=== PATIENT | male | born 2000 ===

== ENCOUNTER 2022-07-30 12:44 | Emergency (ER) | payer OTHER, SELFPAY ==
[2022-07-30 12:58] VITALS: BP 161/121; PULSE 94; RESP 14; TEMP 37.3; O2SAT 98; BMI 25.8
--- NOTE | 2022-07-30 13:13 | ED.NURSE ---
Offered ice pack, Pt declines at this time.
--- NOTE | 2022-07-30 13:18 | CRLHL7_ITS ---
For Patients: As a result of the Cures Act, medical imaging exams and procedure reports are released immediately into your electronic medical record. You may view this report before your referring provider. If you have questions, please contact your health care provider. INDICATION: Dislocation playing rugby. TECHNIQUE: Two views of the right shoulder. COMPARISON: None. FINDINGS: Anterior right shoulder dislocation. No evidence of acute fracture. The visualized soft tissues are unremarkable. IMPRESSION: Anterior right shoulder dislocation. Dictated by Radha Gleason MD @ 07/30/2022 2:09:56 PM (Electronically Signed)
--- NOTE | 2022-07-30 13:20 | ED_ITS ---
HPI - General Adult General Chief complaint: Shoulder Injury/Pain Stated complaint: Dislocated right shoulder Time Seen by Provider: 07/30/22 13:09 Source: patient Mode of arrival: ambulatory Limitations: no limitations History of Present Illness HPI narrative: 22-year-old male coming in today complaining of shoulder pain. He was playing rugby when he was hit and fell. He felt immediate shoulder pain in believes that her shoulders dislocated. He cannot move it. He is in lot of pain. He denies hitting his head or other injury. He states that he has dislocated the left shoulder in the past, and that requir ed surgery because he tore part of the rotator cuff. Related Data Home Medications Medication Instructions Recorded Confirmed No Known Home Medications 07/30/22 07/30/22 Allergies Allergy/AdvReac Type Severity Reaction Status Date / Time No Known Drug Allergies Allergy Verified 07/30/22 13:01 Review of Systems Status of ROS: Reports: 6 or more systems reviewed and unremarkable except as noted in History and below PFSH [facility] Social History Smoking Status: Never smoker How often do you have a drink containing alcohol: 2-3 times a week AUDIT-C Alcohol total score: 3 Non-prescribed substance use: denies use Exam Narrative: Exam Narrative: Well-nourished well-developed patient clearly in pain. Alert and oriented. Answers questions appropriately. Patient speaks in full sentences without needing to catch their breath. HEENT: Normocephalic atraumatic. Pupils are equally round reactive to light. Extraocular muscles are intact. Conjunctivae are moist without any icterus noted. Moist mucous membranes. Posterior pharynx is normal. Neck is soft without any lymphadenopathy or thyromegaly. No masses are appreciated. No tenderness to palpation of the cervical spine. Good range of motion with flexion, extension, side way bending and rotation without pain. Cardiovascular: Heart is regular rate and rhythm S1 and S2 are present without any murmurs. Lungs: Clear to auscultation bilaterally no wheezes rhonchi or rales are appreciated. Patient takes deep breaths without any discomfort. Abdomen: Soft and nontender nondistended with normal bowel sounds. Extremities: Patient has an obvious abnormality of the right shoulder. Normal contour is not present. Appears to have a anteriorly protruding humeral head. He does have a good radial pulse on that side. Const: Vital Signs, click to edit/add: Vital Signs - 24 hr 07/30/22 12:58 Temperature 99.2 F Pulse Rate [Pulse Oximeter] 94 Respiratory Rate 14 Blood Pressure [Le ft Upper Arm] 161/121 H Pulse Oximetry 98 Course Course Hospital Course: IV was established and patient received 0.5 mg of IV Dilaudid which helped him be more comfortable. X-ray of the shoulder, read by me, did not show any fractures. Given patient's muscular build and after conversation with both him and his father, we decided to do moderate sedation with IV propofol. Risks and benefits were discussed including risk of intubation, -patient wished to proceed. IV sedation provided by . Please see her note for full details. We achieved great sedation, and with external rotation of the arm bent at the elbow to 90? the shoulder easily went back into place. Post reduction examination reveals normal contour of the shoulder. Normal radial pulse. No swelling of the extremity noted. Patient tolerated the procedure well. Post reduction x-rays, read by me, were unremarkable. Vital Signs Vital signs: Initial Vital Signs Temperature 99.2 F 07/30/22 12:58 Temperature Source Temporal Artery Scan 07/30/22 12:58 Pulse Rate 94 07/30/22 12:58 Pulse Rhythm 07/30/22 12:58 Respiratory Rate 14 07/30/22 12:58 Blood Pressure 161/121 H 07/30/22 12:58 Blood Pressure Mean 134 07/30/22 12:58 Blood Pressure Position Sitting 07/30/22 12:58 Pulse Oximetry 98 07/30/22 12:58 Vital Signs Temperature 99.2 F 07/30/22 12:58 Pulse Rate 94 07/30/22 12:58 Respiratory Rate 14 07/30/22 12:58 Blood Pressure 161/121 H 07/30/22 12:58 Pulse Oximetry 98 07/30/22 12:58 Temperature 99.2 F 07/30/22 12:58 Pulse Rate 94 07/30/22 12:58 Respiratory Rate 14 07/30/22 12:58 Blood Pressure 161/121 H 07/30/22 12:58 Pulse Oximetry 98 07/30/22 12:58 Medical Decision Making MDM Narrative Medical decision making narrative: 22-year-old male with a dislocated shoulder on the right. Reduced in the ED to day per above. Patient was placed in a sling. We discussed ibuprofen and Tylenol for symptomatic discomfort. We discussed following up with Orthopedics for examination in the next few days. Patient was agreeable and had no other questions. Imaging Data Shoulder x-ray: Attestation: I have reviewed the pertinent imaging results. My impression: No evidence of fracture Radiologist's impression: Two views of the right shoulder. COMPARISON: None. FINDINGS: Anterior right shoulder dislocation. No evidence of acute fracture. The visualized soft tissues are unremarkable. IMPRESSION: Anterior right shoulder dislocation. Post reduction shoulder x-ray: Attestation: I have reviewed the pertinent imaging results. My impression: No acute fractures. Discharge Plan Discharge Clinical Impression: Anterior shoulder dislocation Patient Disposition: Home, Self-Care Condition: Improved Additional Instructions: Wear sling until you have a follow-up with orthopedics. Okay to use Tylenol or ibuprofen as needed for discomfort. Do not play rugby again until you are cleared by orthopedics. Prescriptions: No Action No Known Home Medications Follow Up/Referrals: Provider,Not a Local [Primary Care Provider] - Stand Alone Forms: [employer] Info Instructions
[2022-07-30] MEDS: HYDROmorphone 0.5 mg/0.5 ml inj IVP (13:34)
--- OUTSIDE RECORDS SUMMARY | 2022-07-30 13:50 | XMS_ITS | Encounter Summary ---
:2000 Author Organization [facility] Address [address] [place] [address] Care Team Providers Name Role Phone Christiane Stahl MD Primary Care Provider [phone] Reason for Visit Reason Onset Date Comments Patient Request for Note/Letter 10/03/2014 Encounter Details Date Type Department Care Team Description 10/03/2014 Telephone [facility] Campbell Hartley MD Patient Request for Orthopedic Clinic [id number] [facility] No te/Letter [place] [id number] [address] [place] [address] [phone] Social History Tobacco Use Types Packs/Day Years Used Date Smoking Tobacco: Never Smokeless Tobacco: Never Alcohol Use Standard Drinks/Week Comments No 0 (1 standard drink = 0.6 oz pure alcoho l) Sex Assigned at Date Recorded Not on file documented as of this encounter Miscellaneous Notes Telephone Encounter - Debora Montero RN - 10/06/2014 4:40 PM CST Mother called and left voicemail to fax letter to :Bill Linelpidio at [phone]. Letter faxed. Anna Montero RN [employer] Telephone Encounter - Debora Montero RN - 10/06/2014 2:49 PM CST Consulted with Max Pike PA-C/Plan : no snow boarding or tubing or any activities that he does not have any control over or contact sports for 6 months as previously recommended. Phone call to mother and informed of plan. Informed 6 months would be 12/23/13. She states she lost the letter Max gave her regarding patient's [facility] membership and they would like to get a refund.She will call back with 's fax number to send the letter to. Anna Montero RN [employer] W[employer] Telephone Encounter - Debora Montero RN - 10/03/2014 12:15 PM CST Mother, left voicemail stating she would like to speak with Max Pike PA-C. Phone call to mother. Patient wants to go sledding Oct 16 and she wants to know if this is something he can do or not. Patient had arthrotomy shoulder surgery(open labral repair) on 06/25/14. Last office visit plan: Physical Therapy: As directed at discharge/ per referral - discharged so continue with home exercises for 6 months post op. - Per Dr. Barboza recommendations, RTP at 4 months for non contact and 6 months for contact sports. Phone call to mother and clarified that patient wants to snowboard and snow tube. Recommended he notdue any of those activities until at least Oct 25 as that is 4 months after surgery. Informed it is not worth the risk of reinjuring himself. Informed will discuss with physician and get back with her the week of 10/13 when they return to the office. Anna Montero RN [employer] documented in this encounter Plan of Treatment Not on filedocumented as of this encounter Visit Diagnoses Not on filedocumented in this encounter Care Teams Cocktail Waitress Relationship Specialty Start Date End Date Christiane Stahl MD PCP - General Pediatrics 06/01/12 [address] [place] [address] documented as of this encounter
--- OUTSIDE RECORDS SUMMARY | 2022-07-30 13:50 | XMS_ITS | Encounter Summary ---
:2000 Author Organization [facility] Address [address] [place] [address] Care Team Providers Name Role Phone Christiane Stahl MD Primary Care Provider [phone] Reason for Visit Reason Comments Knee Pain Encounter Details Date Type Department Care Team Description 07/24/2017 Emergency [facility] Carol Bhatti, Thor mima pain of left [facility] [facility] knee [address] [facility] [place], [place] [address] [address] [facility] [phone] [place], [place] [address] (Wo rk) Social History Tobacco Use Types Packs/Day Years Used Date Smoking Tobacco: Never Smokeless Tobacco: Never Alcohol Use Standard Drinks/Week Comments No 0 (1 standard drink = 0.6 oz pure alcoho l) Sex Assigned at Date Recorded Not on file documented as of this encounter Last Filed Vital Signs Vital Sign Reading Time Taken Comments Blood Pressure 160/94 07/24/2017 6:55 PM CDT Pulse 82 07/24/2017 6:55 PM CDT Temperature 36.4 ??C (97.6 ??F) 07/24/2017 6:55 PM CDT Respiratory Rate 16 07/24/2017 9:13 PM CDT Oxygen Saturation 100% 07/24/2017 6:55 PM CDT Inhaled Oxygen Concentration - - Weight 106.6 kg (235 lb) 07/24/2017 6:55 PM CDT Height - - Body Mass Index 33.24 11/11/2016 11:03 AM [employer] Body Mass Index Percentile 98.68 % 07/24/2017 6:55 PM CD T Growth Chart: [facility] (Boys, 2-20 Years) documented in this encounter Discharge Instructions Discharge InstructionsCarol Bhatti MD - 07/24/2017 8:17 PM CDT Please return to the ED if notice increasing pain, swelling, numbness or tingling, fevers or other acute changes. Alternate tylenol and ibuprofen for pain. Ice and rest the knee. Wear knee immobilizer,use crutches and see orthopedics in one week. Avoid weight bearing in the left knee if persistent melodie n. Discharge Instructions Extremity Injury You were seen today for an injury to an extremity (arm, hand, leg, or foot). You may have a bruise, strain, or fracture (broken bone). Generally, every Emergency Department visit should have a follow-up clinic visit with either a primary or a specialty clinic/provider. Please follow-up as instructed by your emergency provider today. Return to the Emergency Department right away if: ??? Your pain seems to change or get worse or there is pain in a new area that wasn???t evaluated today. ??? Your extremity becomes pale, cool, blue, or numb or tingling past the injury. ??? You have more drainage, redness or pain in the area of the cut or abrasion. ??? You have pain that you cannot control with the medicine recommended or prescribed here, or you have pain that seems too much for your injury. ??? Your child (who is injured) will not stop crying or is much more fussy than normal. ??? You have new symptoms or anything that worries you. What to Expect: ??? Your swelling and pain may be worse the day after your injury, but should not be severe and should start getting better after that. You should not have new symptoms and your pain should not get worse. ??? You may start to get a bruise over the injured area or below the injured area (bruising can follow gravity). ??? Your movement and strength should get better with time. ??? Some injuries may not show up until after you have left the Emergency Department so it is important to follow-up as directed. ??? Your injury may prevent you from working. Follow-up with your regular provider to get a work release note. ??? Pain medications or your injury may make it unsafe to drive or operate machinery. Home Care: ??? RICE: Rest, Ice, Compression, Elevation o Rest: Rest your injured area for at least 1-2 days. After that you may start using your extremity again as long as there is not too much pain. o Ice: Apply ice your injured area for 15 minutes at a time, at least 3 times a day. Use a cloth between the ice bag and your skin to prevent frostbite. Do not sleep with an ice pack or heating pad on,since this can cause charlton or skin injury. o Compression: You may use an elastic bandage (Anuj?? Wrap) if it makes you more comfortable. Wrap itjust tight enough to provide light compression, like a new pair of socks feels. Loosen the bandage if you have swelling past the bandage. o Elevation: Raise the injured area above the level of your heart as much as possible in the first 1-2 days. ??? Use Tylenol?? (acetaminophen), Motrin (ibuprofen), or Advil?? (ibuprofen) for your pain unless you have an allergy or are told not to use these medications by your provider. Take the medications asinstructed on the package. Tylenol?? (acetaminophen) is in many prescription medicines and non-prescription medicines--check all of your medicines to be sure you aren???t taking more than 3000 mg per day. ??? Please follow any other instructions that were discussed with you by your provider. Stretching/Exercises: You may have been provided with instructions for stretching or exercises. If your injury was to your arm or shoulder and your provider put you in a sling or an immobilizer, it is important that you take off your immobilizer within 3 days and stretch/move your shoulder, unless your provider specifically tells you to not move your shoulder. This is to prevent further injury such as a ???frozen shoulder?? . If you were given a prescription for medicine here today, be sure to read all of the information (including the package insert) that comes with your prescription. This will include important information about the medicine, its side effects, and any warnings that you need to know about. The pharmacist who fills the prescription can provide more information and answer questions you may have about the medicine. If you have questions or concerns that the pharmacist cannot address, please call or return to the Emergency Department. Remember that you can always come back to the Emergency Department if you are not able to see your regular provider in the amount of time listed above, if you get any new symptoms, or if there is anything that worries you. documented in this encounter Medications at Time of Discharge Medication Sig Dispensed Refills Start Date End Date albuterol (PROAIR HFA, Inhale 2 puffs into 1 Inhaler 1 06/1606/08/2018 PROVENTIL HFA, VENTOLIN the lungs every 4 HFA) 108 (90 BASE) hours as needed for MCG/ACT shortness of breath / inhalerIndications: Mild dyspnea persistent asthma with exacerbation amoxicillin (AMOXIL) 875 Take 1 tablet (875 20 tablet 0 11/201606/08/2018 MG tabletIndications: mg) by mouth 2 times Right acute otitis media daily documented as of this encounter ED Notes Carol Bhatti MD - 07/24/2017 9:13 PM CDT CHIEF COMPLAINT: Knee pain. HISTORY OF PRESENTING ILLNESS: Saurabh Poon is a 17-year-old male, otherwise healthy, presenting withleft knee pain. He reports this is a football injury. He states that he was being tackled when his knee bent in a funny position. He was not able to bear weight afterwards. He heard no popping or crackling. He has no numbness or tingling. He has had no prior knee injuries. He was placed in a knee immobilizer and brought to the Emergency Department. He was given some ibuprofen with improvement of pain. No other changes. MEDICATIONS: None known. ALLERGIES: None known. PAST MEDICAL HISTORY/FAMILY HISTORY/SOCIAL HISTORY: Recent surgical repair of a shoulder. No other pertinent history. REVIEW OF SYSTEMS: Negative for any numbness or tingling. Reports left knee pain. No other focal tenderness. All other systems negative. PHYSICAL EXAM: CONSTITUTIONAL: Well-appearing, lying in the bed comfortably. EYES: Equal, round, and reactive to light. EARS/NOSE/THROAT: Moist mucous membranes. CARDIOVASCULAR: Regular rate and rhythm. No murmurs, rubs or gallop. RESPIRATORY: Clear to auscultation bilaterally. No wheezing, no crackles. GASTROINTESTINAL: Soft, nontender, nondistended abdomen. MUSCULOSKELETAL/LEFT KNEE EXAMINATION: Tenderness over the patella. Tenderness over the medial jointline. Limited range of motion on passive and active flexion of the knee secondary to pain. Able to extend knee fully. Negative anterior and posterior drawer test. No laxity to varus or valgus strain. No knee effusion appreciable. 2+ DP pulse. Sensation intact distal to injury. SKIN: Warm, well-perfused. No abrasion. LABORATORY AND DIAGNOSTICS: X-ray of the knee was negative. INTERVENTION: Ibuprofen. MEDICAL DECISION MAKING: A 17-year-old male, otherwise healthy, presenting with left knee pain. Vital signs reviewed and unremarkable. Broad differential pursued including but not limited to fracture or dislocation, ligamentous or tendinous injury, contusion, sprain, strain, etc. On examination, thereis no gross laxity to suggest tendon or ligament injury. Additionally, there is no effusion noted onx-ray. X-ray negative for any acute fracture or dislocation. He has difficulty with flexing the knee. He does feel improved after being in the knee immobilizer. No appreciable abrasion or ecchymosis over the knee. He is able to fully extend the knee as well. No patellar fracture noted on x-ray, he is able to flex hip fully. The patient was given a knee immobilizer, crutches, and advised to use Tylenol and ibuprofen for pain. He was advised to be nonweightbearing until he is cleared by Orthopedics. He was given a referral for Orthopedic Surgery, and voiced understanding of the plan. DIAGNOSIS: Knee injury, knee pain. PLAN/DISPOSITION: Home, with close orthopedic follow-up, nonweightbearing, crutches, knee immobilizer for comfort, Tylenol and ibuprofen. CAROL BHATTI MD MT: LEI#[id number] Name: SAURABH POON Account: [id number] : 2000 Visit Date: 07/24/2017 Document: [id number] cc: Christiane Ross MD Diamond Kapadia RN - 07/24/2017 6:54 PM CDT A&Ox3, ABC's intact Pt states he was doing a football drill and left leg bent funny per pt, pt c/o left knee pain, in immobilizer prior to arrival. PMH: See hx Meds: denies documented in this encounter Plan of Treatment Not on filedocumented as of this encounter Procedures Procedure Name Priority Date/Time Associated Diagnosis Comme nts XR KNEE LEFT 1/2 STAT 07/24/2017 7:30 PM Resul ts for this VIEWS CDT procedure are i n the results section. documented in this encounter Results XR Knee Left 1/2 Views (07/24/2017 7:30 PM CDT) Anatomical Region Laterality Modality Thigh, Knee, Leg Left Digital Radiography Specimen (Source) Anatomical Location Collection Method / Collectio n Time Received Time / Laterality Volume Impressions 07/24/2017 8:39 PM CDT IMPRESSION: Normal. HITESH SOLARES MD Narrative 07/24/2017 8:39 PM CDT LEFT KNEE ONE-TWO VIEWS ?? 07/24/2017 7:30 PM HISTORY: Bent knee wrong while playing f ootball, complains of knee pain. COMPARISON: None. Procedure Note Hitesh Solares MD - 07/24/2017Form atting of this note might be different from the original. LEFT KNEE ONE-TWO VIEWS 07/24/2017 7:30 P M HISTORY: Bent knee wrong while playing f ootball, complains of knee pain. COMPARISON: None. IMPRESSION: Normal. HITESH SOLARES MD Darin Mcpherson MD IMG DIAGNOSTIC IMAGING ORDER RU documented in this encounter Visit Diagnoses Diagnosis Acute pain of left knee documented in this encounter Administered Medications Inactive Administered Medications - up to 3 most recent administrations Medication Order MAR Action Action Date Dose Rate Site ibuprofen (ADVIL/MOTRIN) tablet Given 07/24/2017 7:05 PM CDT 600 mg 600 mg 600 mg, Oral, ONCE, On Mon 17 at 1904, For 1 dose documented in this encounter Active and Recently Administered Medications Times are shown in CDT. Scheduled Medication Order 07/22/2017 07/23/2017 07/24/2017 ibuprofen (ADVIL/MOTRIN) tablet 600 mg (COMPLETED) 1905 (Given - Provider: Kandis Zamarripa RN) 600 mg, Oral, ONCE, On 07/24/17 at 1904, For 1 dose documented in this encounter Care Teams Line Maintenance Technician Relationship Specialty Start Date End Date Christiane Stahl MD PCP - General Pediatrics 06/01/12 [id number] [address] [id number] documented as of this encounter
--- OUTSIDE RECORDS SUMMARY | 2022-07-30 13:50 | XMS_ITS | Encounter Summary ---
:2000 Author Organization [facility] Address [address] [place] [address]. [place] [address] Care Team Providers Name Role Phone Christiane Stahl MD Primary Care Provider [phone] Reason for Visit Reason Comments Well Child Encounter Details Date Type Department Care Team Description 03/28/2016 Office Visit [facility] Christiane Stahl er for well child visit with abnormal findings (Primary Dx); Clinic Jack Miller MD Non morbid obesity, unspecified obesity type [address] [address] [address] [place] [id number] [phone] Social History Tobacco Use Types Packs/Day Years Used Date Smoking Tobacco: Never Smokeless Tobacco: Never Alcohol Use Standard Drinks/Week Comments No 0 (1 standard drink = 0.6 oz pure alcoho l) Sex Assigned at Date Recorded Not on file documented as of this encounter Last Filed Vital Signs Vital Sign Reading Time Taken Comments Blood Pressure 120/70 03/28/2016 2:09 PM CDT Pulse 62 03/28/2016 2:09 PM CDT Temperature 36.8 ??C (98.2 ??F) 03/28/2016 2:09 PM CDT Respiratory Rate 18 03/28/2016 2:09 PM CDT Oxygen Saturation 100% 03/28/2016 2:09 PM CDT Inhaled Oxygen Concentration - - Weight 96.8 kg (213 lb 6 oz) 03/28/2016 2:09 PM CDT Height 179.1 cm (5' 10.5) 03/28/2016 2:09 PM CDT Body Mass Index 30.18 03/28/2016 2:09 PM CDT Body Mass Index Percentile 97.58 % 03/28/2016 2:09 PM CD T Growth Chart: CDC (Boys, 2-20 Years) documented in this encounter Patient Instructions Patient InstructionsRowan Quintero, CONSTRUCTION ELECTRICIAN - 03/28/2016 12:07 PM CDT Preventive Care at the 15 - 18 Year Visit Growth Percentiles & Measurements Weight: 213 lbs 6 oz / 96.79 kg / 99%ile based on CDC 2-20 Years ezalni-xud-nyk data using vitals from 03/28/2016. Length: 5' 10.5 / 179.1 cm 76%ile based on [facility] 2-20 Years zwsrbto-[id number] data using vitals from 03/28/2016. BMI: Body mass index is 30.17 kg/(m^2). 98%ile based on CDC 2-20 Years BMI-for-age data using vitalsfrom 03/28/2016. Blood Pressure: Blood pressure percentiles are 54% systolic and 60% diastolic based on 2000 NHANES data. Next Visit ??? Continue to see your health care provider every one to two years for preventive care. Nutrition ??? It???s very important to eat breakfast. This will help you make it through the morning. ??? Sit down with your family for a meal on a regular basis. ??? Eat healthy meals and snacks, including fruits and vegetables. Avoid salty and sugary snack foods. ??? Be sure to eat foods that are high in calcium and iron. ??? Avoid or limit caffeine (often found in soda pop). Sleeping ??? Your body needs about 9 hours of sleep each night. ??? Keep screens (TV, computer, and video) out of the bedroom / sleeping area. They can lead to poorsleep habits and increased obesity. Health ??? Limit TV, computer and video time. ??? Set a goal to be physically fit. Do some form of exercise every day. It can be an active sport like skating, running, swimming, a team sport, etc. ??? Try to get 30 to 60 minutes of exercise at least three times a week. ??? Make healthy choices: don???t smoke or drink alcohol; don???t use drugs. In your teen years, you can expect . . . ??? To develop or strengthen hobbies. ??? To build strong friendships. ??? To be more responsible for yourself and your actions. ??? To be more independent. ??? To set more goals for yourself. ??? To use words that best express your thoughts and feelings. ??? To develop self-confidence and a sense of self. ??? To make choices about your education and future career. ??? To see big differences in how you and your friends grow and develop. ??? To have body odor from perspiration (sweating). Use underarm deodorant each day. ??? To have some acne, sometimes or all the time. (Talk with your doctor or nurse about this.) ??? Most girls have finished going through puberty by 15 to 16 years. Often, boys are still growing and building muscle mass. Sexuality ??? It is normal to have sexual feelings. ??? Find a supportive person who can answer questions about puberty, sexual development, sex, abstinence (choosing not to have sex), sexually transmitted diseases (STDs) and control. ??? Think about how you can say no to sex. Safety ??? Accidents are the greatest threat to your health and life. ??? Avoid dangerous behaviors and situations. For example, never drive after drinking or using drugs. Never get in a car if the lyft driver has been drinking or using drugs. ??? Always wear a seat belt in the car. When you drive, make it a rule for all passengers to wear seat belts, too. ??? Stay within the speed limit and avoid distractions. ??? Practice a fire escape plan at home. Check smoke detector batteries twice a year. ??? Keep electric items (like blow dryers, razors, curling irons, etc.) away from water. ??? Wear a helmet and other protective gear when bike riding, skating, skateboarding, etc. ??? Use sunscreen to reduce your risk of skin cancer. ??? Learn first aid and CPR (cardiopulmonary resuscitation). ??? Avoid peers who try to pressure you into risky activities. ??? Learn skills to manage stress, anger and conflict. ??? Do not use or carry any kind of weapon. ??? Find a supportive person (teacher, parent, health provider, counselor) whom you can talk to whenyou feel sad, angry, lonely or like hurting yourself. ??? Find help if you are being abused physically or sexually, or if you fear being hurt by others. As a teenager, you will be given more responsibility for your health and health care decisions. While your parent or guardian still has an important role, you will likely start spending some time alonewith your health care provider as you get older. Some teen health issues are actually considered confidential, and are protected by law. Your health care team will discuss this and what it means with you. Our goal is for you to become comfortable and confident caring for your own health. documented in this encounter Progress Notes Christiane Stahl MD - 03/28/2016 12:07 PM CDT SUBJECTIVE: Saurabh Poon is a 16 year old male, here for a routine health maintenance visit, accompanied by his self, mother and brother. Patient was roomed by: Rowan Ochoa CMA SOCIAL HISTORY Family members in house: mother, father and brother Language(s) spoken at home: Afghan Recent family changes/social stressors: none noted SAFETY/HEALTH RISKS TB exposure: No Cardiac risk assessment: none VISION No corrective lenses Question Validity: no Right eye: 20/20 Left eye: 20/20 Vision Assessment: normal HEARING Right Ear: 500 Hz: RESPONSE- on Level: 25 db 1000 Hz: RESPONSE- on Level: 25 db 2000 Hz: RESPONSE- on Level: 20 db 4000 Hz: RESPONSE- on Level: 20 db Left Ear: 500 Hz: RESPONSE- on Level: 20 db 1000 Hz: RESPONSE- on Level: 20 db 2000 Hz: RESPONSE- on Level: 20 db 4000 Hz: RESPONSE- on Level: 20 db Question Validity: no Hearing Assessment: normal DENTAL Dental health HIGH risk factors: none Water source: FILTERED WATER No sports physical needed. SAFETY Car seat belt always worn: Yes Helmet worn for bicycle/roller blades/skateboard? NO Guns/firearms in the home: No ELECTRONIC MEDIA TV in bedroom: No >2 hours/ day EDUCATION School: [employer] Grade: 11th School performance / Academic skills: doing well in school Concerns: no ACTIVITIES Do you get at least 60 minutes per day of physical activity, including time in and out of school: Yes Extra-curricular activities: None Organized / team sports: baseball, football and snowboard Catcher in baseball and he is [employer] in Football. DIET Do you get at least 4 helpings of a fruit or vegetable every day: Yes How many servings of juice, non-diet soda, punch or sports drinks per day: NOne SLEEP No concerns, sleeps well through night. Some trouble falling asleep but overall better in summer. QUESTIONS/CONCERNS: None PROBLEM LIST Patient Active Problem List Diagnosis ??? Overweight ??? Seasonal allergic rhinitis ??? Tear of left glenoid labrum MEDICATIONS No current outpatient prescriptions on file. ALLERGY No Known Allergies IMMUNIZATIONS Immunization History Administered Date(s) Administered ? ? DTAP (<7y) 2000, 2000, 2000, 05/09/2001, 01/31/2005 ??? HIB 2000, 2000, 2000, 05/09/2001 ??? Hepatitis A 2003, 06/18/2010 ??? Hepatitis B 2000, 2000, 2000 ??? Human Papilloma Virus 06/12/2015, 07/13/2015 ??? IPV 2000, 2000, 07/18/2001, 01/31/2005 ??? MMR 01/16/2001, 01/31/2005 ??? Meningococcal (Mentactra??) 05/30/2012 ??? Pneumococcal (PCV 7) 2000, 2000, 01/16/2001, 05/09/2001 ??? TDAP (ADACEL AGES 11-64) 05/30/2012 ??? Varicella 01/16/2001, 06/16/2010 HEALTH HISTORY SINCE LAST VISIT No surgery, major illness or injury since last physical exam The patient states that asthma hasn't been an issue for a few years now. Wants off problem list. He is doing football and baseball, as well as working at [employer] and [employer]. He also has not had any allergies this spring. DRUGS Smoking: no Passive smoke exposure: no Alcohol: no Drugs: no SEXUALITY Sexual attraction: opposite sex PSYCHO-SOCIAL/DEPRESSION General screening: No screening tool used and No concerns. No concerns ROS GENERAL: See health history, nutrition and daily activities SKIN: No rash, hives or significant lesions HEENT: Hearing/vision: see above. No eye, nasal, ear symptoms. RESP: No cough or other concerns CV: No concerns GI: See nutrition and elimination. No concerns. : See elimination. No concerns NEURO: No headaches or concerns. OBJECTIVE: EXAM BP 120/70 mmHg Pulse 62 Temp(Src) 98.2 ??F (36.8 ??C) (Oral) Resp 18 Ht 5' 10.5 (1.791 m) Wt 213 lb 6 oz (96.786 kg) BMI 30.17 kg/m2 SpO2 100% 76%ile based on CDC 2-20 Years qfmofoi-cuj-stw data using vitals from 03/28/2016. 99%ile based on CDC 2-20 Years jvpfio-utu-iab data using vitals from 03/28/2016. 98%ile based on CDC 2-20 Years BMI-for-age data using vitals from 03/28/2016. Blood pressure percentiles are 54% systolic and 60% diastolic based on 2000 NHANES data. GENERAL: Active, alert, in no acute distress. SKIN: Clear. No significant rash, abnormal pigmentation or lesions HEAD: Normocephalic EYES: Sharp optic discs. Pupils equal, round, reactive, Extraocular muscles intact. Normal conjunctivae. EARS: Normal canals. Tympanic membranes are normal; marion and translucent. NOSE: Normal without discharge. MOUTH/THROAT: Clear. No oral lesions. Teeth without obvious abnormalities. NECK: Supple, no masses. No thyromegaly. LYMPH NODES: No adenopathy LUNGS: Clear. No rales, rhonchi, wheezing or retractions HEART: Regular rhythm. Normal S1/S2. No murmurs. Normal pulses. ABDOMEN: Soft, non-tender, not distended, no masses or hepatosplenomegaly. Bowel sounds normal. NEUROLOGIC: No focal findings. Cranial nerves grossly intact: DTR's normal. Normal gait, strength and tone BACK: Spine is straight, no scoliosis. EXTREMITIES: Full range of motion, no deformities -M: Normal male external genitalia. Silviano stage 4, both testes descended, no hernia. ASSESSMENT/PLAN: 1. Encounter for well child visit with abnormal findings - PURE TONE HEARING TEST, AIR - SCREENING, VISUAL ACUITY, QUANTITATIVE, BILAT - BEHAVIORAL / EMOTIONAL ASSESSMENT [00850] - Screening Questionnaire for Immunizations - MENINGOCOCCAL VACCINE,IM (MENACTRA) [76870] - C HUMAN PAPILLOMA VIRUS (GARDASIL 9) VACCINE - VACCINE ADMINISTRATION, INITIAL - VACCINE ADMINISTRATION, EACH ADDITIONAL Anticipatory Guidance The following topics were discussed: SOCIAL/ FAMILY: Peer pressure Increased responsibility Parent/ teen communication TV/ media School/ homework Future plans/ College NUTRITION: Healthy food choices Calcium Weight management HEALTH / SAFETY: Adequate sleep/ exercise Dental care Drugs, ETOH, smoking Seat belts Sunscreen/ insect repellent Swimming/ water safety Bike/ sport helmets 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 See orders in [facility]. I reviewed the signs and symptoms of adverse effects and when to seek medical care if they should arise. Referrals/Ongoing Specialty care: No See other orders in [facility]. Cleared for sports: Yes BMI at 98%ile based on CDC 2-20 Years BMI-for-age data using vitals from 03/28/2016. OBESITY ACTION PLAN Exercise and nutrition counseling performed 5210 5. 5 servings of fruits or vegetables per day 2. Less than 2 hours of television per day 1. At least 1 hour of active play per day 0. 0 sugary drinks (juice, pop, punch, sports drinks) Dental visit recommended: Continue care every 6 months FOLLOW-UP: in 1 year for a Preventive Care visit This document serves as a record of the services and decisions personally performed and made by Mayo Ross MD. It was created on her behalf by John Stroud, a trained medical technologist prn. The creation of this document is based the provider's statements to the medical technologist prn. John Stroud 2:34 PM March 28, 2016 Christiane Ross MD [facility] documented in this encounter Nursing Notes Rowan Quintero CMA - 03/28/2016 2:11 PM CDT Chief Complaint Patient presents with ??? Well Child Initial BP 120/70 mmHg Pulse 62 Temp(Src) 98.2 ??F (36.8 ??C) (Oral) Resp 18 Ht 5' 10.5 (1.791 m) Wt 213 lb 6 oz (96.786 kg) BMI 30.17 kg/m2 SpO2 100% Estimated body mass index is 30.17 kg/(m^2) as calculated from the following: Height as of this encounter: 5' 10.5 (1.791 m). Weight as of this encounter: 213 lb 6 oz (96.786 kg). BP completed using cuff size: blayne Ochoa CMA documented in this encounter Plan of Treatment Not on filedocumented as of this encounter Procedures Procedure Name Priority Date/Time Associated Diagnosis Comme nts HC SCREENING TEST, Routine 03/28/2016 2:26 PM CDT Encounter fo r well PURE TONE, AIR ONLY child visit with abnormal findings documented in this encounter Visit Diagnoses Diagnosis Encounter for well child visit with abno rmal findings - Primary Non morbid obesity, unspecified obesity type documented in this encounter Care Teams Orchestra Director Relationship Specialty Start Date End Date Christiane Stahl MD PCP - General Pediatrics 06/01/12 [address] [address] [id number] documented as of this encounter
--- OUTSIDE RECORDS SUMMARY | 2022-07-30 13:50 | XMS_ITS | Encounter Summary ---
:2000 Author Organization [facility] Address [address] [place] [address] Care Team Providers Name Role Phone Christiane Stahl MD Primary Care Provider [phone] Reason for Visit Reason Comments RECHECK Encounter Details Date Type Department Care Team Description 11/17/2016 Office Visit [facility] Nav Influenza A (Primary Dx); Clinic Berta Fofana MD Right acute otitis media [address] [facility] [address] [place] [address] [place] [phone] Social History Tobacco Use Types Packs/Day Years Used Date Smoking Tobacco: Never Smokeless Tobacco: Never Alcohol Use Standard Drinks/Week Comments No 0 (1 standard drink = 0.6 oz pure alcoho l) Sex Assigned at Date Recorded Not on file documented as of this encounter Last Filed Vital Signs Vital Sign Reading Time Taken Comments Blood Pressure 126/74 11/17/2016 9:51 AM STEEL FABRICATING SUPERVISOR Pulse 85 11/17/2016 9:51 AM STEEL FABRICATING SUPERVISOR Temperature 36.6 ??C (97.8 ??F) 11/17/2016 9:51 AM STEEL FABRICATING SUPERVISOR Respiratory Rate - - Oxygen Saturation 98% 11/17/2016 9:51 AM STEEL FABRICATING SUPERVISOR Inhaled Oxygen Concentration - - Weight 99.8 kg (220 lb) 11/17/2016 9:51 AM STEEL FABRICATING SUPERVISOR Height - - Body Mass Index 31.12 11/11/2016 11:03 AM STEEL FABRICATING SUPERVISOR Body Mass Index Percentile 97.92 % 11/17/2016 9:51 AM CS T Growth Chart: [facility] (Boys, 2-20 Years) documented in this encounter Patient Instructions Patient InstructionsNav Zelaya MD - 11/17/2016 10:19 AM CST - continue with humidifying air and warm shower - warm water with honey for throat and coughing - continue with saline nasal spray - can try Afrin nasal spray at night before going to bed for 3 days; do not use more than 3 days - can try Mucinex to loosen nasal secretion - can try Phenylephrine (decongestant similar to sudafed) - Amoxicillin 875 mg 1 tablet twice daily for 10 days for right ear infection - flu can last for 2-3 weeks; if symptoms do not improve in 1-2 weeks or new fever develops, return to clinic L FABRICATING SUPERVISOR documented in this encounter Progress Notes Nav Zelaya MD - 11/17/2016 7:29 AM CST SUBJECTIVE: Saurabh Poon is a 16 year old male who presents to clinic today because of: Chief Complaint Patient presents with ??? RECHECK HPI: Saurabh is a 16 yo male with hx of asthma and recent diagnosis of influenza A who presents to clinic today because his symptoms of sinus congestion and headache have not resolved. He was diagnosed with flu on 11/11/16 when he was found to be positive for influenza A. He was started on Tamiflu, which he finished couple days ago. His fever and myalgia have resolved but continues to have sinus congestion and headache with copious postnasal drainage. He also complains of some ear pressure. He has tried tylenol and ibuprofen for his headache and sudafed and warm shower for sinus congestion. He denies fever, chills, sore throat, ear pain, SOB, nausea, vomiting, or abdominal pain. ROS: GENERAL: NEGATIVE for fever, chills HEENT: POSITIVE for sinus congestion, ear pressure, postnasal drainage; NEGATIVE for ear discharge or pain, sore throat RESP: POSITIVE for cough; NEGATIVE for SOB GI: NEGATIVE for nausea, vomiting, abdominal pain MSK: NEGATIVE for myalgia PROBLEM LIST: Patient Active Problem List Diagnosis Date Noted ??? Tear of left glenoid labrum 06/12/2015 Priority: Medium Repaired 06/29 ??? Overweight 05/30/2012 Priority: Medium BMI at 28.6- discussed ??? Seasonal allergic rhinitis 05/30/2012 Priority: Medium 03/23 Immunocap: mold, dust, grass, pollen, ragweed, dog and cat allergies; Total IgE 896. MEDICATIONS: Current Outpatient Prescriptions Medication Sig Dispense Refill ??? amoxicillin (AMOXIL) 875 MG tablet Take 1 tablet (875 mg) by mouth 2 times daily 20 tablet 0 ??? albuterol (PROAIR HFA, PROVENTIL HFA, VENTOLIN HFA) 108 (90 BASE) MCG/ACT inhaler Inhale 2 puffsinto the lungs every 4 hours as needed for shortness of breath / dyspnea 1 Inhaler 1 ALLERGIES: No Known Allergies Problem list and histories reviewed & adjusted, as indicated. OBJECTIVE: BP 126/74 mmHg Pulse 85 Temp(Src) 97.8 ??F (36.6 ??C) (Oral) Wt 220 lb (99.791 kg) SpO2 98% No height on file for this encounter. GENERAL: Active, alert, appears tired SKIN: Clear. No significant rash, abnormal pigmentation or lesions HEAD: Normocephalic. EYES: No discharge or erythema. Normal pupils EARS: Left tympanic membrane not visualized due to cerumen impaction (attempted to clear), right tympanic membrane with effusion and erythema NOSE: Moderate discharge MOUTH/THROAT: No pharyngeal erythema but post-nasal drainage, no oral lesions NECK: Supple, submandibular LAD LUNGS: Clear. No rales, rhonchi, wheezing or retractions HEART: Regular rhythm. Normal S1/S2. No murmurs. DIAGNOSTICS: None ASSESSMENT/PLAN: 1. Influenza A 2. Right acute otitis media Patient was positive for influenza A one week ago and finished the course of Tamiflu. He is now herewith residual sinus congestion and headache likely from sinus pressure. Influenza can last 2-3 weekswith lingering cough and respiratory issues so his symptoms are likely from influenza diagnosed a week ago. In the absence of fever or other new symptoms, it is not likely that he has sinus infection superimposed influenza. Therefore, further work-up such as CXR would not be recommended. However, his physical exam shows that the right TM is erythematous with effusion, suggesting acute otitis media inright ear, which could explain ear pressure and congestion. - continue with humidifying air and warm shower - warm water with honey for throat and coughing - continue with saline nasal spray - recommend trying Afrin nasal spray at night before going to bed for 3 days; do not use more than 3days - recommend Mucinex and phenylephrine - Amoxicillin 875 mg 1 tablet twice daily for 10 days for right acute otitis media FOLLOW UP: if not improved in 1-2 weeks or new fever development Patient was seen and discussed with Dr. Martinez, who agrees with the plan above Nav Zelaya MD STAFF NOTE: Patient seen with resident physician today. I was physically present during mcconnell portions of the visit and participated in the evaluation and management of the patient today. ASSESSMENT: ICD-10-CM 1. Influenza A J10.1 2. Right acute otitis media H66.91 amoxicillin (AMOXIL) 875 MG tablet Exam repeated today: c/w right AOM Rx as above Tiburcio Martinez MD L FABRICATING SUPERVISOR documented in this encounter Plan of Treatment Not on filedocumented as of this encounter Visit Diagnoses Diagnosis Influenza A - Primary Influenza with other respiratory manifes tations Right acute otitis media Unspecified otitis media documented in this encounter Care Teams Entrepreneurship Program Director Relationship Specialty Start Date End Date Christiane Stahl MD PCP - General Pediatrics 06/01/12 [address] [place] [address] documented as of this encounter
--- OUTSIDE RECORDS SUMMARY | 2022-07-30 13:50 | XMS_ITS | Encounter Summary ---
:2000 Author Organization [facility] Address [address] [place] [address]. [place] [address] Care Team Providers Name Role Phone Christiane Stahl MD Primary Care Provider [phone] Reason for Visit Reason Comments Forms Needs Sports forms Encounter Details Date Type Department Care Team Description 05/16/2016 Documentation Only [facility] Christiane Stahl (Needs Sports Clinic Jack Miller MD forms) [address] [address] [place], [place] [facility] [address] [id number] Social History Tobacco Use Types Packs/Day Years Used Date Smoking Tobacco: Never Smokeless Tobacco: Never Alcohol Use Standard Drinks/Week Comments No 0 (1 standard drink = 0.6 oz pure alcoho l) Sex Assigned at Date Recorded Not on file documented as of this encounter Progress Notes Rowan Quintero CMA - 05/16/2016 8:57 AM CDT Faxed completed form to Mary Bill at [phone]. Christiane Stahl MD - 05/16/2016 6:51 AM CDT Please fax sports clearance letter to Gaurav Poon at [phone]. Put note to dad that he should also come back for next HPV vaccine and have hearing re-checked. documented in this encounter Plan of Treatment Not on filedocumented as of this encounter Visit Diagnoses Not on filedocumented in this encounter Care Teams Proof Clerk Relationship Specialty Start Date End Date Christiane Stahl MD PCP - General Pediatrics 06/01/12 [address] [place] [address] documented as of this encounter
--- OUTSIDE RECORDS SUMMARY | 2022-07-30 13:50 | XMS_ITS | Encounter Summary ---
:2000 Author Organization [facility] Address [address] [place] [address] Care Team Providers Name Role Phone Christiane Stahl MD Primary Care Provider [phone] Christiane Stahl MD Unavailable [phone] Encounter Details Date Type Department Care Team Description 10/18/2019 Travel Social History Tobacco Use Types Packs/Day Years Used Date Smoking Tobacco: Never Smokeless Tobacco: Never Alcohol Use Standard Drinks/Week Comments No 0 (1 standard drink = 0.6 oz pure alcoho l) Sex Assigned at Date Recorded Not on file documented as of this encounter Plan of Treatment Not on filedocumented as of this encounter Visit Diagnoses Not on filedocumented in this encounter Care Teams Target Setter Relationship Specialty Start Date End Date Christiane Stahl MD PCP - General Pediatrics 06/01/12 [address] [address] [address] Christiane Stahl MD Assigned PCP 07/15/18 11/09/19 [address] [address] [place] [address] documented as of this encounter
--- OUTSIDE RECORDS SUMMARY | 2022-07-30 13:50 | XMS_ITS | Encounter Summary ---
:2000 Author Organization [place] Address [facility] [address] Care Team Providers Name Role Phone Christiane Stahl MD Primary Care Provider [phone] Reason for Referral Consultation - Closed Specialty Diagnoses / Procedures Referred By Contact Betty mckeon To Contact Diagnoses Left knee pain [facility] [address] [place] [address] [place] [phone] [place] [id number] Referral ID Status Reason Start Date Expiration Date Visits Requ ested Visits Authorized [id number] Closed 07/28/2017 07/28/2018 1 1 Reason for Visit Reason Onset Date Comments Referral 07/28/2017 ortho-pt seen now at orthopedics for knee pain Encounter Details Date Type Department Care Team Description 07/28/2017 Telephone [facility] Christiane Stahl (ortho-pt Clinic [place] [address] orthopedics for knee [place] [address] pain) [phone] Social History Tobacco Use Types Packs/Day Years Used Date Smoking Tobacco: Never Smokeless Tobacco: Never Alcohol Use Standard Drinks/Week Comments No 0 (1 standard drink = 0.6 oz pure alcoho l) Sex Assigned at Date Recorded Not on file documented as of this encounter Miscellaneous Notes Telephone Encounter - Carolyn Nguyễn RN - 07/28/2017 1:04 PM CDT Referral was faxed to [facility] for them. They are going to have him have knee braces. Carolyn Nguyễn RN Triage Nurse Telephone Encounter - Carolyn Nguyễn RN - 07/28/2017 10:19 AM CDT Patient mother is calling to ask for a referral today for him to see [facility]. They need it faxed now to them, he is there at urgent care. He is being seen for left knee pain after a football injury. Verbal ok given by Juliette in PCP absence. Referral is printed and faxed to [phone]. Carolyn Nguyễn RN Triage Nurse documented in this encounter Plan of Treatment Scheduled Referrals Name Type Priority Associated Diagnoses Order S [facility] ORTHOPEDICS PEDS REFERRAL Referral Routine Left knee pain Ordered: 07/28/2017 documented as of this encounter Visit Diagnoses Diagnosis Left knee pain - Primary Pain in joint, lower leg documented in this encounter Care Teams Women'S Soccer Coach Relationship Specialty Start Date End Date Christiane Stahl MD PCP - General Pediatrics 06/01/12 [id number] [place] [id number] documented as of this encounter
--- OUTSIDE RECORDS SUMMARY | 2022-07-30 13:50 | XMS_ITS | Encounter Summary ---
:2000 Author Organization [place] Address [address] [place] [address] Care Team Providers Name Role Phone Christiane Stahl MD Primary Care Provider [phone] Encounter Details Date Type Department Care Team Description 11/11/2014 Telephone [facility] [employer] Erica Hurtado, RN [address] [place] [address] Social History Tobacco Use Types Packs/Day Years Used Date Smoking Tobacco: Never Smokeless Tobacco: Never Alcohol Use Standard Drinks/Week Comments No 0 (1 standard drink = 0.6 oz pure alcoho l) Sex Assigned at Date Recorded Not on file documented as of this encounter Miscellaneous Notes Telephone Encounter - Erica Hurtado RN - 11/11/2014 5:19 PM CST Call Type: Triage Call Presenting Problem: His L ear is plugged for the past 2-3 days.Its painful-mild. Triage Note: Guideline Title: Hearing Loss or Change (Pediatric) Recommended Disposition: See Provider within 24 hours Original Inclination: Wanted to speak with a nurse Override Disposition: Intended Action: Follow advice given Physician Contacted: No Ear is painful ? YES Child sounds very sick or weak to the triager ? NO Decreased hearing with nasal allergies ? NO Part of a cold ? NO Follows air travel or mountain driving ? NO See something in ear canal ? NO Complete loss of hearing in both ears ? NO [1] Complete loss of hearing in 1 ear AND [2] sudden onset AND [3] present now ? NO [1] Ringing in the ears AND [2] taking medicine that could cause it (e.g. aspirin, NSAIDs) AND [3] dosage sounds high ? NO [1] Severe ear pain AND [2] not improved 2 hours after ibuprofen ? NO Followed an injury to the ear ? NO Physician Instructions: Care Advice: CARE ADVICE given per Hearing Loss or Change (Pediatric) guideline. CALL BACK IF: * Your child becomes worse LOCAL COLD FOR EAR PAIN: Apply a cold pack or a cold wet washcloth to outer ear for 20 minutes to reduce pain while medicine takes effect. Note: some children prefer local heat for 20 minutes. (CAUTION: cold or hot pack applied too long could cause frostbite or burn.) REASSURANCE: Your child may have an ear infection, but it doesn't sound serious. Only way to be sure is to examine eardrum. PAIN: For pain relief give acetaminophen every 4 hours OR ibuprofen every 6 hours (See Dosage table). SEE PHYSICIAN WITHIN 24 HOURS: * IF OFFICE WILL BE OPEN: Your child needs to be examined within the next 24 hours. Call your child's doctor when the office opens, and make an appointment. * IF OFFICE WILL BE CLOSED: Your child needs to be examined within the next 24 hours. Go to at your convenience. ICT GUARD documented in this encounter Plan of Treatment Not on filedocumented as of this encounter Visit Diagnoses Not on filedocumented in this encounter Care Teams Bounty Hunter Relationship Specialty Start Date End Date Christiane Stahl MD PCP - General Pediatrics 06/01/12 [address] [place] [address] documented as of this encounter
--- OUTSIDE RECORDS SUMMARY | 2022-07-30 13:50 | XMS_ITS | Encounter Summary ---
:2000 Author Organization [place] Address [address] [place] [address]. [place] [address] Care Team Providers Name Role Phone Christiane Stahl MD Primary Care Provider [phone] Reason for Visit Reason Comments Generalized Body Aches Cough Encounter Details Date Type Department Care Team Description 11/11/2016 Office Visit [facility] Christiane Stahl A (Primary Dx); Clinic Jack Miller MD Body aches [id number] [address] [address] [place] [phone] Social History Tobacco Use Types Packs/Day Years Used Date Smoking Tobacco: Never Smokeless Tobacco: Never Alcohol Use Standard Drinks/Week Comments No 0 (1 standard drink = 0.6 oz pure alcoho l) Sex Assigned at Date Recorded Not on file documented as of this encounter Last Filed Vital Signs Vital Sign Reading Time Taken Comments Blood Pressure 128/60 11/11/2016 11:03 AM FOOD AND DRUG INSPECTOR Pulse 85 11/11/2016 11:03 AM FOOD AND DRUG INSPECTOR Temperature 37.6 ??C (99.7 ??F) 11/11/2016 11:03 AM FOOD AND DRUG INSPECTOR Respiratory Rate 18 11/11/2016 11:03 AM FOOD AND DRUG INSPECTOR Oxygen Saturation 100% 11/11/2016 11:03 AM FOOD AND DRUG INSPECTOR Inhaled Oxygen Concentration - - Weight 101.2 kg (223 lb 2 oz) 11/11/2016 11:03 AM FOOD AND DRUG INSPECTOR Height 179.1 cm (5' 10.5) 11/11/2016 11:03 AM FOOD AND DRUG INSPECTOR Body Mass Index 31.56 11/11/2016 11:03 AM FOOD AND DRUG INSPECTOR Body Mass Index Percentile 98.16 % 11/11/2016 11:[address] Growth Chart: [facility] (Boys, 2-20 Years) documented in this encounter Patient Instructions Patient InstructionsChristiane Stahl MD - 11/11/2016 11:30 AM FOOD AND DRUG INSPECTOR Images from the original note were not included. Influenza Influenza (???the flu?? ) is an infection that affects your respiratory tract (the mouth, nose, and lungs, and the passages between them). Unlike a cold, the flu can make you very ill. And it can lead to pneumonia, a serious lung infection. For some people, especially older adults, young children, andpeople with certain chronic conditions, the flu can have serious complications and even be fatal. What Are the Risk Factors for the Flu? Viruses that cause influenza spread through the air in droplets when someone who has the flu coughs,sneezes, laughs, or talks. Anyone can get the flu. But you???re more likely to become infected if you: ?? Have a weakened immune system. ?? Work in a health care setting where you may be exposed to flu germs. ?? Live or work with someone who has the flu. ?? Haven???t received an annual flu shot. How Does the Flu Spread? The flu is caused by viruses. The viruses spread through the air in droplets when someone who has the flu coughs, sneezes, laughs, or talks. You can become infected when you inhale these??viruses directly. You can also become infected when you touch a surface on which the droplets have landed and thentransfer the germs to your eyes, nose, or mouth. Touching used tissues, or sharing utensils, drinking glasses, or a toothbrush with an infected person can expose you to flu viruses, too. What Are the Symptoms of the Flu? Flu symptoms tend to come on quickly and may last a few days to a few weeks. They include: ?? Fever usually higher than 101??F?? (38.3??C)??and chills ?? Sore throat and headache ?? Dry cough ?? Runny nose ?? Tiredness and weakness ?? Muscle aches Factors That Can Make Flu Worse For some people, the flu can be very serious. The risk of complications is greater for: ?? Children under age 5. ?? Adults??65 years of age and older. ?? People with a chronic illness, such as diabetes or heart, kidney, or lung disease. ?? People who live in a jail or long-term care facility. How Is the Flu Treated? Influenza usually improves after 7 days or so. In some cases, your??health care provider??may prescribe an antiviral medication. This may help you get well sooner. For the medication to help, you need to take it as soon as possible (ideally within 48 hours)??after your symptoms start. If you develop pneumonia or other serious illness, hospital care may be needed. Easing Flu Symptoms ?? Drink lots of fluids such as water, juice, and warm soup. A good rule is to drink enough so that you urinate your normal amount. ?? Get plenty of rest. ?? Ask your??health care provider??what to take??for fever and pain. ?? Call your??provider if your fever rises over 101??F (38.3??C) or you become dizzy, lightheaded, or short of breath. Taking??Steps to Protect Others ?? Wash your hands often, especially after coughing or sneezing. Or, clean your hands with an alcohol-based hand??grain cleaner and transfer operator containing at least 60 percent alcohol. ?? Cough or sneeze into a tissue. Then throw the tissue away and wash your hands. If you don???t have a tissue, cough and sneeze into the crook of your elbow. ?? Stay home until??at least 24 hours after you no longer have a fever or chills. Be sure the fever isn???t being hidden by fever-reducing medication. ?? Don???t share food, utensils, drinking glasses, or a toothbrush with others. ?? Ask your??health care provider if??others in your household should receive antiviral medication to help them avoid infection. How Can the Flu Be Prevented? ?? One of the best ways to avoid the flu is to get a flu vaccination each year. Viruses that cause the flu change from year to year. For that reason, doctors recommend getting the flu vaccine each year, as soon as it's available in your area. The vaccine may be given as a shot or as a??nasal spray. Your??health care provider??can tell you which vaccine is right for you. ?? Wash your hands often. Frequent handwashing is a proven way to help prevent infection. ?? Carry an alcohol-based hand gel containing at least 60 percent alcohol. Use it when you don???t have access to soap and water. Then wash your hands as soon as you can. ?? Avoid touching your eyes, nose, and mouth. ?? At home and work, clean phones, computer keyboards, and toys often with disinfectant wipes. ?? If possible, avoid close contact with others who have the flu or symptoms of the flu. Handwashing Tips Handwashing is one of the best ways to prevent many common infections. If you???re caring for or visiting someone with the flu, wash your hands each time you enter and leave the room. Follow these steps: ?? Use warm water and plenty of soap. Rub your hands together well. ?? Clean the whole hand, under your nails, between your fingers, and up the wrists. ?? Wash for at least 15??seconds. ?? Rinse, letting the water run down your fingers, not up your wrists. ?? Dry your hands well. Use a paper towel to turn off the faucet and open the door. Using Alcohol-Based Hand Unix Architect Alcohol-based hand??industrial locomotive operator are also a good choice. Use them when you don???t have access to soap and water. Follow these steps: ?? Squeeze about a tablespoon of gel into the palm of one hand. ?? Rub your hands together briskly, cleaning the backs of your hands, the palms, between your fingers, and up the wrists. ?? Rub until the gel is gone and your hands are completely dry. Preventing Influenza in Healthcare Settings The flu is a special concern for people in hospitals and long-term care facilities. To help prevent the spread of flu, many hospitals and nursing homes take these steps: ?? Health care providers wash their hands or use an alcohol-based hand grain cleaner and transfer operator before and after treating each patient. ?? People with the flu have private rooms and bathrooms or share a room with someone with the same infection. ?? High-risk patients who don???t have the flu are encouraged to get the??flu and pneumonia vaccines. ?? All health care workers are encouraged or required to??get flu shots. ? 2034-4070 [employer]. [address] [place] [address]. All rights reserved. This information is not intended as a substitute for professional medical care. Always follow your healthcare professional's instructions. AND DRUG INSPECTOR documented in this encounter Progress Notes Christiane Stahl MD - 11/11/2016 11:01 AM CST SUBJECTIVE: Saurabh Poon is a 16 year old male who presents to clinic today with mother because of: Chief Complaint Patient presents with ??? Generalized Body Aches ??? Cough HPI: ENT/Cough Symptoms Problem started: 3 days ago Fever: Not taken Runny nose: no Congestion: YES Sore Throat: no Cough: YES Eye discharge/redness: no Ear Pain: no Wheeze: no Sick contacts: School; Strep exposure: None; Therapies Tried: Tylenol and Ibuprofen Body Aches/Very sore Patient gets hot and cold Patient states he has been feeling sick since Monday. Complains of body aches, feeling hot and coldand cough. Waking up at 2am due to body soreness. Only went to school one day this week. Other sick contacts in the household. Denies difficulty breathing or sore throat. ROS: Negative for constitutional, eye, ear, nose, throat, skin, respiratory, cardiac, and gastrointestinal other than those outlined in the HPI. PROBLEM LIST: Patient Active Problem List Diagnosis Date Noted ??? Tear of left glenoid labrum 06/12/2015 Repaired 06/29 ??? Overweight 05/30/2012 BMI at 28.6- discussed ??? Seasonal allergic rhinitis 05/30/201203/23 Immunocap: mold, dust, grass, pollen, ragweed, dog and cat allergies; Total IgE 896. MEDICATIONS: Current Outpatient Prescriptions Medication Sig Dispense Refill ??? albuterol (PROAIR HFA, PROVENTIL HFA, VENTOLIN HFA) 108 (90 BASE) MCG/ACT inhaler Inhale 2 puffsinto the lungs every 4 hours as needed for shortness of breath / dyspnea 1 Inhaler 1 ALLERGIES: No Known Allergies Problem list and histories reviewed & adjusted, as indicated. OBJECTIVE: BP 128/60 mmHg Pulse 85 Temp(Src) 99.7 ??F (37.6 ??C) (Tympanic) Resp 18 Ht 1.791 m (5' 10.5) Wt 101.209 kg (223 lb 2 oz) BMI 31.55 kg/m2 SpO2 100% Blood pressure percentiles are 78% systolic and 24% diastolic based on 2000 NHANES data. Blood pressure percentile targets: 90: 134/83, 95: 137/87, 99 + 5 mmH/100. GENERAL: Mildly ill appearing, alert, in no acute distress. SKIN: Clear. No significant rash, abnormal pigmentation or lesions HEAD: Normocephalic. EYES: No discharge or erythema. Normal pupils and EOM. EARS: Normal canals. Tympanic membranes are normal; marion and translucent. NOSE: Normal without discharge. MOUTH/THROAT: Clear. No oral lesions. Teeth intact without obvious abnormalities. NECK: Supple, no masses. LYMPH NODES: No adenopathy LUNGS: Cough present, otherwise lungs clear. No rales, rhonchi, wheezing or retractions HEART: Regular rhythm. Normal S1/S2. No murmurs. ABDOMEN: Soft, non-tender, not distended, no masses or hepatosplenomegaly. Bowel sounds normal. DIAGNOSTICS: Influenza Ag: A positive; B negative ASSESSMENT/PLAN: 1. Influenza A Even though 3rd day will treat. Remote history of asthma and brother with metabolic condition. - oseltamivir (TAMIFLU) 75 MG capsule; Take 1 capsule (75 mg) by mouth 2 times daily Dispense: 10 capsule; Refill: 0 [facility] handout on flu given. Watch for secondary infection- recurrence of fevers later in course, trouble breathing. 2. Body aches - Influenza A/B antigen FOLLOW UP: If not improving or if worsening This document serves as a record of the services and decisions personally performed and made by Mayo Ross MD. It was created on her behalf by Beatrice Smith, a trained director medical writing. The creation of this document is based the provider's statements to the director medical writing. Beatrice Smith 11:16 AM November 11, 2016 Christiane Ross MD AND DRUG INSPECTOR documented in this encounter Nursing Notes Rowan Quintero CMA - 11/11/2016 11:08 AM CST Chief Complaint Patient presents with ??? Generalized Body Aches ??? Cough Initial BP 128/60 mmHg Pulse 85 Temp(Src) 99.7 ??F (37.6 ??C) (Tympanic) Resp 18 Ht 5' 10.5(1.791 m) Wt 223 lb 2 oz (101.209 kg) BMI 31.55 kg/m2 SpO2 100% Estimated body mass index is 31.55 kg/(m^2) as calculated from the following: Height as of this encounter: 5' 10.5 (1.791 m). Weight as of this encounter: 223 lb 2 oz (101.209 kg). BP completed using cuff size: blayne Ochoa CMA AND DRUG INSPECTOR documented in this encounter Plan of Treatment Not on filedocumented as of this encounter Procedures Procedure Name Priority Date/Time Associated Diagnosis Comme nts INFLUENZA A/B Routine 11/11/2016 11:08 AM Body aches Results for this ANTIGEN FOOD AND DRUG INSPECTOR procedure are i n the results section. documented in this encounter Results (ABNORMAL) Influenza A/B antigen (11/11/2016 11:08 AM FOOD AND DRUG INSPECTOR) [facility] Method Time Signature Influenza A/B Nasal [facility] Agn Specimen [facility]INICS [place] Influenza A Positive NEG [facility] Test results must be correlated with clinical data. If ne cessary, results CLINICS should be confirmed by a molecular assay or viral culture. [place] (A) Influenza B Negative NEG [facility] Test results must be correlated with clinical data. If ne cessary, results CLINICS should be confirmed by a molecular assay or viral culture. [place] Specimen Anatomical Collection Method Collection Time Receive d Time (Source) Location / / Volume Laterality Swab from nasal 11/11/2016 11:08 11/11/19 17 sinus (specimen) AM FOOD AND DRUG INSPECTOR 11:09 AM CS T Christiane Ross MD LAB - MICRO GENERAL ORDERABL ES Performing Organization Address City/State/ZIP Code Phon e Number [facility] [address] [place], [place] [address] documented in this encounter Visit Diagnoses Diagnosis Influenza A - Primary Influenza with other respiratory manifes tations Body aches Generalized pain documented in this encounter Care Teams Firer Kiln Relationship Specialty Start Date End Date Christiane Stahl MD PCP - General Pediatrics 06/01/12 [address] [place], [place] [id number] documented as of this encounter
--- OUTSIDE RECORDS SUMMARY | 2022-07-30 13:50 | XMS_ITS | Encounter Summary ---
:2000 Author Organization [facility] Address [address] [place] [address]. [place] [address] Care Team Providers Name Role Phone Christiane Stahl MD Primary Care Provider [phone] Reason for Visit Reason Comments Well Child Encounter Details Date Type Department Care Team Description 06/12/2015 Office Visit [facility] Christiane Stahl Routine infant or child health check (Primary Dx); Clinic Jack Miller MD Middle ear effusion, bilateral; [address] Conductive hearing loss, bilateral; [place] [address] [place]; [place], [place] [phone] (Wo rk) Intermittent asthma, uncomplicated; [id number] Seasonal allergic rhinitis [phone] Social History Tobacco Use Types Packs/Day Years Used Date Smoking Tobacco: Never Smokeless Tobacco: Never Alcohol Use Standard Drinks/Week Comments No 0 (1 standard drink = 0.6 oz pure alcoho l) Sex Assigned at Date Recorded Not on file documented as of this encounter Last Filed Vital Signs Vital Sign Reading Time Taken Comments Blood Pressure 116/68 06/12/2015 9:39 AM CDT Pulse 54 06/12/2015 9:39 AM CDT Temperature 36.8 ??C (98.2 ??F) 06/12/2015 9:39 AM CDT Respiratory Rate 18 06/12/2015 9:39 AM CDT Oxygen Saturation 99% 06/12/2015 9:39 AM CDT Inhaled Oxygen Concentration - - Weight 91.9 kg (202 lb 9.6 oz) 06/12/2015 9:39 AM CDT Height 179.7 cm (5' 10.75) 06/12/2015 9:39 AM CDT Body Mass Index 28.46 06/12/2015 9:39 AM CDT Body Mass Index Percentile 96.63 % 06/12/2015 9:39 AM CD T Growth Chart: CDC (Boys, 2-20 Years) documented in this encounter Patient Instructions Patient InstructionsChristiano CAPO Varma - 06/12/2015 8:08 AM CDT Preventive Care at the 15 - 18 Year Visit Growth Percentiles & Measurements Weight: 202 lbs 9.6 oz / 91.9 kg / 99%ile based on CDC 2-20 Years jvpazq-ncd-uko data using vitals from 06/12/2015. Length: 5' 10.75 / 179.7 cm 86%ile based on CDC 2-20 Years myqxnfj-szr-iqj data using vitals from 06/12/2015. BMI: Body mass index is 28.46 kg/(m^2). 97%ile based on CDC 2-20 Years BMI-for-age data using vitalsfrom 06/12/2015. Blood Pressure: Blood pressure percentiles are 44% systolic and 56% diastolic based on 2000 NHANES data. Next Visit- consider HPV series Both ears with some fluid and hearing is down a little. I would like to recheck these in a couple months to be sure fluid resolves and ear drums look ok, re- check hearing. ??? 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 [...] encounter Progress Notes Christiane Stahl MD - 06/12/2015 8:08 AM CDT SUBJECTIVE: Saurabh Poon is a 15 year old male, here for a routine health maintenance visit, accompanied by his self. Patient was roomed by: EMILE Tracy QUESTIONS/CONCERNS: None HOME Family members in house: mother, father and brother Language(s) spoken at home: Macedonian Recent family changes/social stressors: none noted HEALTH RISKS TB exposure: No Cardiac risk assessment: none VISION Wears glasses? NO Right eye: 20/40 Left eye: 20/40 Both eyes: 20/25 Question Validity: no HEARING Right Ear: 500 Hz: RESPONSE- on Level: 20 db 1000 Hz: RESPONSE- on Level: 40 db 2000 Hz: RESPONSE- on Level: 20 db 4000 Hz: RESPONSE- on Level: 40 db Left Ear: 500 Hz: RESPONSE- on Level: 20 db 1000 Hz: RESPONSE- on Level: 20 db 2000 Hz: RESPONSE- on Level: 20 db 4000 Hz: RESPONSE- on Level: 40 db Question Validity: no DENTAL Dental health HIGH risk factors: none Water source: FILTERED WATER SPORTS QUESTIONNAIRE: School: [employer] Grade: 10 TH Sports: Football and base ball 1. YES - Has a doctor ever denied or restricted your participation in sports for any reason or told you to give up sports? Tear in left shoulder 2. no - Do you have an ongoing medical condition (like diabetes,asthma, anemia, infections)? 3. no - Are you currently taking any prescription or nonprescription (gmrw-lbz-axxoilu) medicines orpills? 4. no - Do you have allergies to medicines, pollens, foods or stinging insects? 5. no - Have you ever spent the night in a hospital? 6. YES - Have you ever had surgery? Tear in left shoulder 7. no - Have you ever passed out or nearly passed out DURING exercise? 8. no - Have you ever passed out or nearly passed out AFTER exercise? 9. no -Have you ever had discomfort, pain, tightness, or pressure in your chest during exercise? 10. no -Does your heart race or skip beats (irregular beats) during exercise? 11. no -Has a doctor ever told you that you have ;high blood pressure, a heart murmur, high cholesterol,a heart infection, Rheumatic fever, Kawasaki's Disease? 12. no - Has a doctor ever ordered a test for your heart? (for example: ECG, echocardiogram, stress test) 13. no -Do you ever get lightheaded or feel more short of breath than expected during exercise? 14. no-Have you ever had an unexplained seizure? 15. no - Do you get more tired or short of breath more quickly than your friends during exercise? 16. no - Has any family member or relative of heart problems or had an unexpected or unexplained sudden before age 50 (including unexplained drowning, unexplained car accident or sudden infant syndrome)? 17. no - Does anyone in your family have hypertrophic cardiomyopathy, Marfan Syndrome, arrhythmogenic right ventricular cardiomyopathy, long QT syndrome, short QT syndrome, Brugada syndrome, or catecholaminergic polymorphic ventricular tachycardia? 18. no - Does anyone in your family have a heart problem, pacemaker, or implanted defibrillator? 19. no -Has anyone in your family had unexplained fainting, unexplained seizures, or near drowning? 20. no - Have you ever had an injury, like a sprain, muscle or ligament tear or tendonitis, that caused you to miss a practice or game? 21. YES - Have you had any broken or fractured bones, or dislocated joints? Tear in left shoulder 22. YES - Have you had an injury that required x-rays, MRI, CT, surgery, injections, therapy, a brace, a cast, or crutches? Tear in left shoulder 23. YES - Have you ever had a stress fracture? Tear in left shoulder 24. no - Have you been told that you have or have you had an x-ray for neck instability? (Down syndrome or dwarfism) 25. no - Do you regularly use a brace, orthotics or assistive device? 26. no -Do you have a bone,muscle, or joint injury that bothers you? 27. no- Do any of your joints become painful, swollen, feel warm or look red? 28. no -Do you have any history of juvenile arthritis or connective tissue disease? 29. YES - Has a doctor ever told you that you have asthma or allergies? Tear in left shoulder 30. no - Do you cough, wheeze, have chest tightness, or have difficulty breathing during or after exercise? 31. no - Is there anyone in your family who has asthma? 32. YES - Have you ever used an inhaler or taken asthma medicine? 33. no - Do you develop a rash or hives when you exercise? 34. no - Were you born without or are you missing a kidney, an eye, a testicle, or any other organ? 35. no- Do you have groin pain or a painful bulge or hernia in the groin area? 36. no - Have you had infectious mononucleosis (mono) within the last month? 37. no - Do you have any rashes, pressure sores, or other skin problems? 38. no - Have you had a herpes or MRSA skin infection? 39. no - Have you ever had a head injury or concussion? 40. no - Have you ever had a hit or blow in the head that caused confusion, prolonged headaches, or memory problems? 41. no - Do you have a history of seizure disorder? 42. no - Do you have headaches with exercise? 43. no - Have you ever had numbness, tingling or weakness in your arms or legs after being hit or falling? 44. no - Have you ever been unable to move your arms or legs after being hit or falling? 45. no -Have you ever become ill while exercising in the heat? 46. no -Do you get frequent muscle cramps when exercising? 47. no - Do you or someone in your family has sickle cell trait or disease? 48. no - Have you had any problems with your eyes or vision? 49. no - Have you had any eye injuries? 50. no - Do you wear glasses or contact lenses? 51. no - Do you wear protective eyewear, such as goggles or a face shield? 52. no- Do you worry about your weight? 53. no - Are you trying to or has anyone recommended that you gain or lose weight? 54. no- Are you on a special diet or do you avoid certain types of foods? 55. no- Have you ever had an eating disorder? 56. no - Do you have any concerns that you would like to discuss with a doctor? SAFETY Car seat belt always worn: Yes Helmet worn for bicycle/roller blades/skateboard? NO Guns/firearms in the home: No ELECTRONIC MEDIA TV in bedroom: No >2 hours/ day EDUCATION School: [employer] Grade: 10 TH School performance / Academic skills: doing well in school Days of school missed: : 2 weeks- due to surgery. Concerns: no ACTIVITIES Do you get at least 60 minutes per day of physical activity, including time in and out of school: Yes Extra-curricular activities: none Organized / team sports: baseball, football and snowboard DIET Do you get at least 4 helpings of a fruit or vegetable every day: Yes Do you eat breakfast every day: Yes How many servings of juice, non-diet soda, punch or sports drinks per day: none Does your family eat out (take out, delivery, fast food, restaurant) more than one day per week: No SLEEP Falling asleep at 2:30 AM. Hard time falling asleep since football season. Trying to switch schedulewith school coming up. No Known Allergies Immunization History Administered Date(s) Administered ? ? DTAP (<7y) 2000, 2000, 2000, 05/09/2001, 01/31/2005 ??? HIB 2000, 2000, 2000, 05/09/2001 ??? Hepatitis A 2003, 06/18/2010 ??? Hepatitis B 2000, 2000, 2000 ??? IPV 2000, 2000, 07/18/2001, 01/31/2005 ??? MMR 01/16/2001, 01/31/2005 ??? Meningococcal (Menactra) 05/30/2012 ??? Pneumococcal (PCV 7) 2000, 2000, 01/16/2001, 05/09/2001 ??? TDAP (ADACEL AGES 11-64) 05/30/2012 ??? Varicella 01/16/2001, 06/16/2010 Patient Active Problem List Diagnosis ??? Intermittent asthma ??? [place]weigth ??? Seasonal allergic rhinitis ??? Tear of left glenoid labrum HEALTH HISTORY SINCE LAST VISIT Shoulder surgery last fall for labral tear. No problems since then. Since football started harder to fall asleep. Asleep at 1 am and up at 9 am. No asthma symptoms in awhile. Mild allergy symptoms. Not taking anything. DRUGS Smoking: no Passive smoke exposure: no Alcohol: no Drugs: no SEXUALITY Sexual attraction: Not issue Sexual activity: No PSYCHO-SOCIAL/DEPRESSION General screening: Pediatric Symptom Checklist-Youth PASS (score 4--<30 pass), no followup necessary No concerns Patient Active Problem List Diagnosis ??? Intermittent asthma ??? Overweigth ??? Seasonal allergic rhinitis ??? Tear of left glenoid labrum No Known Allergies Immunization History Administered Date(s) Administered ? ? DTAP (<7y) 2000, 2000, 2000, 05/09/2001, 01/31/2005 ??? HIB 2000, 2000, 2000, 05/09/2001 ??? Hepatitis A 2003, 06/18/2010 ??? Hepatitis B 2000, 2000, 2000 ??? IPV 2000, 2000, 07/18/2001, 01/31/2005 ??? MMR 01/16/2001, 01/31/2005 ??? Meningococcal (Menactra) 05/30/2012 ??? Pneumococcal (PCV 7) 2000, 2000, 01/16/2001, 05/09/2001 ??? TDAP (ADACEL AGES 11-64) 05/30/2012 ??? Varicella 01/16/2001, 06/16/2010 ROS GENERAL: See health history, nutrition and daily activities SKIN: No rash, hives or significant lesions HEENT: Hearing/vision: see above. No eye, nasal, ear symptoms. RESP: No cough or other concerns CV: No concerns GI: See nutrition and elimination. No concerns. : See elimination. No concerns NEURO: No headaches or concerns. OBJECTIVE: EXAM BP 116/68 mmHg Pulse 54 Temp(Src) 98.2 ??F (36.8 ??C) (Oral) Resp 18 Ht 5' 10.75 (1.797 m) Wt 202 lb 9.6 oz (91.899 kg) BMI 28.46 kg/m2 SpO2 99% 86%ile based on CDC 2-20 Years fhhcgbm-npt-nab data using vitals from 06/12/2015. 99%ile based on CDC 2-20 Years nkddvs-wwp-lrt data using vitals from 06/12/2015. 97%ile based on CDC 2-20 Years BMI-for-age data using vitals from 06/12/2015. Blood pressure percentiles are 44% systolic and 56% diastolic based on 2000 NHANES data. GENERAL: [...] -M: Normal male external genitalia. Silviano stage 4 , both testes descended, no hernia. ASSESSMENT/PLAN: 1. Healthy with normal growth and development 2. Allergies- would start up Flonase and see if helps ear fluid. 3. Middle ear effusions and mild hearing loss- likely from allergies. Think white just ossicles, butwould like to recheck to be sure no choleostoma evolving. 4. Asthma - new AAP ACT Total Scores 11/12/2014 06/12/2015 06/12/2015 ACT TOTAL SCORE 25 - - ASTHMA ER VISITS 0 = None - - ASTHMA HOSPITALIZATIONS 0 = None - - ACT TOTAL SCORE (Goal Greater than or Equal to 20) - - 25 In the past 12 months, how many times did you visit the emergency room for your asthma without beingadmitted to the hospital? - 0 0 In the past 12 months, how many times were you hospitalized overnight because of your asthma? 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 I provided face to face vaccine counseling, answered questions, and explained the benefits and risks of the vaccine components ordered today including: HPV - Human Papilloma Virus. Referrals/Ongoing Specialty care: No [facility] Dental visit recommended: Yes and Continue care every 6 months Vision: normal Hearing: abnormal--needs f/u in 2 mos when comes back for HPV Cleared for sports: Yes- [facility] [employer] sports clearance letter written. BMI at 97%ile based on CDC 2-20 Years BMI-for-age data using vitals from 06/12/2015. OBESITY ACTION PLAN Nutrition Counseling Performed 5210 5. 5 servings of fruits or vegetables per day 2. Less than 2 hours of television per day 1. At least 1 hour of active play per day 0. 0 sugary drinks (juice, pop, punch, sports drinks) FOLLOW-UP: in 1 year for a Preventive Care visit Christiane Ross MD [facility] documented in this encounter Nursing Notes Little Mendoza CMA - 06/12/2015 10:11 AM CDT Screening Questionnaire for Pediatric Immunization Is the child sick today? No Does the child have allergies to medications, food or any vaccine? No Has the child ever had a serious reaction to a vaccination in the past? No Has the child had a health problem with asthma, heart disease, lung disease, kidney disease, diabetes, a metabolic or blood disorder? No If the child to be vaccinated is between the ages of 2 and 4 years, has a healthcare provider told you that the child had wheezing or asthma in the past 12 months? No Has the child, sibling or parent had a seizure, or has the child had brain, or other nervous systemproblems? No Does the child have cancer, leukemia, AIDS, or any immune system problem? No Has the child taken cortisone, prednisone, other steroids, or anticancer drugs, or had any x-ray (radiation) treatments in the past 3 months? No Has the child received a transfusion of blood or blood products, or been given a medicine called immune (gamma) globulin in the past year? No Is the child/teen or is there a chance that she could become during the next month? No Has the child received any vaccinations in the past 4 weeks? No Immunization questionnaire answers were all negative. MNVFC doesn't apply on this patient [place] eligibility self-screening form given to patient. Per orders of Dr. Hoffman, injection of HPV Vaccine given by Little Mendoza. Patient instructed to remain in clinic for 20 minutes afterwards, and to report any adverse reaction to me immediately. Screening performed by Little Mendoza on 06/12/2015 at 10:11 AM. Avani Alvarado CMA - 06/12/2015 9:41 AM CDT Chief Complaint Patient presents with ??? Well Child Initial BP 116/68 mmHg Pulse 54 Temp(Src) 98.2 ??F (36.8 ??C) (Oral) Resp 18 Ht 5' 10.75 (1.797 m) Wt 202 lb 9.6 oz (91.899 kg) BMI 28.46 kg/m2 SpO2 99% Estimated body mass index is 28.46 kg/(m^2) as calculated from the following: Height as of this encounter: 5' 10.75 (1.797 m). Weight as of this encounter: 202 lb 9.6 oz (91.899 kg). BP completed using cuff size: regular documented in this encounter Plan of Treatment Not on filedocumented as of this encounter Procedures Procedure Name Priority Date/Time Associated Comments Diagnosis ASTHMA ACTION PLAN Routine 06/12/2015 10:01 AM CDT HC SCREENING TEST, Routine 06/12/2015 10:01 AM Routine Or PURE TONE, AIR ONLY CDT Child Health Check DIAGNOSTIC 06/12/2015 12:00 AM (NON-INVASIVE) CDT RESULT - HIM SCAN HC BEHAV ASSMT Routine 06/12/2015 Routine infant or Results for this W/SCORE & DOCD/STAND child health check p rocedure are in INSTRUMENT the results section. documented in this encounter Results DIAGNOSTIC (NON-INVASIVE) RESULT - HIM SCAN (06/12/2015 12:00 AM CDT) Specimen (Source) Anatomical Location Collection Method / Collectio n Time Received Time / Laterality Volume 06/12/2015 Narrative This result has an attachment that is no t available. Provider Outside OTHER BEHAVIORAL / EMOTIONAL ASSESSMENT [[id number]] (06/12/2015) P athologist Signature PEDIATRIC 4 SYMPTOM CHECKLIST - 35 (PSC ? 35) Chrsitiane Ross MD OTHER documented in this encounter Visit Diagnoses Diagnosis Routine or child health check - P rimary Middle ear effusion, bilateral Conductive hearing loss, bilateral Overweigth Obesity, unspecified Intermittent asthma, uncomplicated Seasonal allergic rhinitis Allergic rhinitis, cause unspecified documented in this encounter Care Teams Staff Occupational Therapist Relationship Specialty Start Date End Date Christiane Stahl MD PCP - General Pediatrics 06/01/12 [address] [address] [facility] [place] [address] documented as of this encounter
--- OUTSIDE RECORDS SUMMARY | 2022-07-30 13:50 | XMS_ITS | Encounter Summary ---
:2000 Author Organization [facility] Address [address] [place] [address]. [place] [address] Care Team Providers Name Role Phone Christiane Stahl MD Primary Care Provider [phone] Reason for Visit Reason Onset Date Comments Forms 05/23/2016 Sports Physical Encounter Details Date Type Department Care Team Description 05/23/2016 Telephone [facility] Christiane Stahl Forms ( Sports Clinic Jack Miller MD Physical) [address] [address] [address] [place] [id number] [phone] Social History Tobacco Use Types Packs/Day Years Used Date Smoking Tobacco: Never Smokeless Tobacco: Never Alcohol Use Standard Drinks/Week Comments No 0 (1 standard drink = 0.6 oz pure alcoho l) Sex Assigned at Date Recorded Not on file documented as of this encounter Miscellaneous Notes Telephone Encounter - Fariba Quezada - 05/24/2016 9:30 AM CDT Put letter at the net front end developer. Telephone Encounter - LucrecaikemalSonia - 05/23/2016 4:39 PM CDT Patient will pickle processor form tomorrow at net front end developer. Telephone Encounter - Fariba Quezada - 05/23/2016 4:13 PM CDT Pts mother called stating that he now needs a sports physical. Printed off letter and put in Dr. Grande's basket to sign. Please call mother when form is ready to pickle processor. Fariba Telephone Encounter - Fariba Quezada - 05/23/2016 4:09 PM CDT Called and tried to leave a message that letter was available to be picked up. No voicemail set up so I could not leave a message. I will try again tomorrow. Letter is sitting by my phone at [facility]. Telephone Encounter - Christiane Stahl MD - 05/23/2016 1:11 PM CDT Signed. documented in this encounter Plan of Treatment Not on filedocumented as of this encounter Visit Diagnoses Not on filedocumented in this encounter Care Teams Floor Trader Relationship Specialty Start Date End Date Christiane Stahl MD PCP - General Pediatrics 06/01/12 [address] [place] [address] documented as of this encounter
--- OUTSIDE RECORDS SUMMARY | 2022-07-30 13:50 | XMS_ITS | Encounter Summary ---
:2000 Author Organization [facility] Address [address] [place] [address]. [place] [address] Care Team Providers Name Role Phone Christiane Stahl MD Primary Care Provider Reason for Visit Reason Onset Date Comments Cough 11/15/2016 influenza Encounter Details Date Type Department Care Team Description 11/15/2016 Telephone [facility] Christiane Stahl (influenza) [place] [address] [address] [place] [phone] [place] [id number] (Wo rk) Social History Tobacco Use Types Packs/Day Years Used Date Smoking Tobacco: Never Smokeless Tobacco: Never Alcohol Use Standard Drinks/Week Comments No 0 (1 standard drink = 0.6 oz pure alcoho l) Sex Assigned at Date Recorded Not on file documented as of this encounter Miscellaneous Notes Telephone Encounter - Carolyn Nguyễn RN - 11/15/2016 8:34 AM CST Mom notified. She will continue the neb, tylenol, cough medication. Carolyn Nguyễn, conveyor worker Nurse OR INSTRUMENTATION ENGINEER Telephone Encounter - Christiane Stahl MD - 11/15/2016 8:26 AM SENIOR INSTRUMENTATION ENGINEER This is pretty much typical course for Influenza. The Tamiflu just shortens the course by a day or two. One week is pretty average. Watch for new fevers, trouble breathing, feeling worse. He has a remote history of asthma so if more wheezing/ trouble breathing might need Prednisone. Would agree with re commendations for return to school. OR INSTRUMENTATION ENGINEER Telephone Encounter - Carolyn Nguyễn RN - 11/15/2016 8:05 AM CST Patient has influenza, taking tamiflu, has 2 more left. He is not feeling a lot better, no fever, just harsh coughing spells. He has missed a lot of school, and would like to go back. Advised that he can go, just needs to be very careful to wash his hands and cover his cough. Has a nebulizer at home, he will use it this morning. Taking Tylenol for headache, and Robitussin to help cough. Feeling lightheaded at times, denies SOB or chest tightness. Do you recommend an appointment to be seen? Just not improving as much as he was expecting. Please advise. (mom Neel called initially, talked to patient as well) Carolyn Nguyễn, conveyor worker Nurse OR INSTRUMENTATION ENGINEER documented in this encounter Plan of Treatment Not on filedocumented as of this encounter Visit Diagnoses Not on filedocumented in this encounter Care Teams Building Maintenance Worker Relationship Specialty Start Date End Date Christiane Stahl MD PCP - General Pediatrics 06/01/12 [address] [place] [address] documented as of this encounter
--- OUTSIDE RECORDS SUMMARY | 2022-07-30 13:50 | XMS_ITS | Encounter Summary ---
:2000 Author Organization [place] Address Critical access hospital0 [facility] [place] [address] Care Team Providers Name Role Phone Christiane Stahl MD Primary Care Provider [phone] Reason for Visit Reason Comments Cough Encounter Details Date Type Department Care Team Description 06/08/2018 [facility] non-suppurative otitis [address] [facility] (Primary Dx) [place], [place] [address] [address] [place], [place] [phone] [address] Social History Tobacco Use Types Packs/Day Years Used Date Smoking Tobacco: Never Smokeless Tobacco: Never Tobacco Cessation: Counseling Given: No Alcohol Use Standard Drinks/Week Comments No 0 (1 standard drink = 0.6 oz pure alcoho l) Sex Assigned at Date Recorded Not on file documented as of this encounter Last Filed Vital Signs Vital Sign Reading Time Taken Comments Blood Pressure 136/56 06/08/2018 2:01 PM CDT Pulse 63 06/08/2018 2:01 PM CDT Temperature 36.4 ??C (97.5 ??F) 06/08/2018 2:01 PM CDT Respiratory Rate 16 06/08/2018 2:01 PM CDT Oxygen Saturation 97% 06/08/2018 2:01 PM CDT Inhaled Oxygen Concentration - - Weight 97.6 kg (215 lb 3.2 oz) 06/08/2018 2:01 PM CDT Height 179.1 cm (5' 10.5) 06/08/2018 2:01 PM CDT Body Mass Index 30.44 06/08/2018 2:01 PM CDT Body Mass Index Percentile 96.59 % 06/08/2018 2:01 PM CD T Growth Chart: [facility] (Boys, 2-20 Years) documented in this encounter Progress Notes Juliette Nava PA-C - 06/08/2018 1:50 PM CDT SUBJECTIVE: Saurabh Poon is a 18 year old male who presents to clinic today for the following health issues: RESPIRATORY SYMPTOMS ?? Duration: 3 days ?? Description nasal congestion, rhinorrhea, cough, myalgias and mild ear pain from them being plugged ?? Severity: mild ?? Accompanying signs and symptoms: threw up this AM ?? History (predisposing factors): none ?? Precipitating or alleviating factors: None ?? Therapies tried and outcome: none Patient is here today for evaluation of nasal congestion, cough, bilateral ear pain Ongoing for 3 days No known fever, headache Does admit to sore throat Did throw up once this morning, no further nausea Taking no meds Problem list and histories reviewed & adjusted, as indicated. Additional history: as documented Patient Active Problem List Diagnosis ??? Overweight ??? Seasonal allergic rhinitis ??? Tear of left glenoid labrum Past Surgical History: Procedure Laterality Date ??? ARTHROTOMY SHOULDER 06/25/2014 Procedure: ARTHROTOMY SHOULDER; Surgeon: Campbell Hartley MD; Location: OR Social History Substance Use Topics ??? Smoking status: Never Smoker ??? Smokeless tobacco: Never Used ??? Alcohol use No Family History Problem Relation Age of Onset ??? Genetic Disorder Brother citrullinemia- developmental delay ??? Genetic Disorder Mother ??? Genetic Disorder Father ??? Diabetes Father ??? Circulatory Father ??? Eye Disorder Maternal Grandmother ??? Eye Disorder Paternal Grandmother ??? Diabetes Paternal Grandmother ??? Cerebrovascular Disease Paternal Grandfather ??? HEART DISEASE Maternal Grandfather Current Outpatient Prescriptions Medication Sig Dispense Refill ??? amoxicillin-clavulanate (AUGMENTIN) 875-125 MG per tablet Take 1 tablet by mouth 2 times daily 20 tablet 0 No Known Allergies Reviewed and updated as needed this visit by clinical staff Tobacco Allergies Meds Med Hx Surg Hx Fam Hx Soc Hx Reviewed and updated as needed this visit by Provider ROS: Constitutional, HEENT, cardiovascular, pulmonary, gi and gu systems are negative, except as otherwise noted. OBJECTIVE: BP 136/56 (BP Location: Right arm, Patient Position: Chair, Cuff Size: Adult Large) Pulse 63 Temp 97.5 ??F (36.4 ??C) (Oral) Resp 16 Ht 5' 10.5 (1.791 m) Wt 215 lb 3.2 oz (97.6 kg) SpO2 97% BMI 30.44 kg/m2 Body mass index is 30.44 kg/(m^2). GENERAL: healthy, alert and no distress EYES: Eyes grossly normal to inspection, PERRL and conjunctivae and sclerae normal HENT: normal cephalic/atraumatic, both ears: erythematous and bulging membrane, nose and mouth without ulcers or lesions, oropharynx clear and oral mucous membranes moist NECK: no adenopathy, no asymmetry, masses, or scars and thyroid normal to palpation RESP: lungs clear to auscultation - no rales, rhonchi or wheezes CV: regular rate and rhythm, normal S1 S2, no S3 or S4, no murmur, click or rub, no peripheral edemaand peripheral pulses strong MS: no gross musculoskeletal defects noted, no edema Diagnostic Test Results: none ASSESSMENT/PLAN: 1. Bilateral non-suppurative otitis media New problem, will treat with Augmentin BID x 10 days. Advised rest, fluids and OTCs. F/U if symptoms worsen or do not improve. - amoxicillin-clavulanate (AUGMENTIN) 875-125 MG per tablet; Take 1 tablet by mouth 2 times daily Dispense: 20 tablet; Refill: 0 Risks, benefits and alternatives were discussed with patient. Agreeable to the plan of care. Juliette Nava PA-C [facility] documented in this encounter Plan of Treatment Not on filedocumented as of this encounter Visit Diagnoses Diagnosis Bilateral non-suppurative otitis media - Primary Nonsuppurative otitis media, not specifi ed as acute or chronic documented in this encounter Care Teams Regional Safety Manager Relationship Specialty Start Date End Date Christiane Stahl MD PCP - General Pediatrics 06/01/12 [address] [id number] documented as of this encounter
--- OUTSIDE RECORDS SUMMARY | 2022-07-30 13:50 | XMS_ITS | Encounter Summary ---
:2000 Author Organization [facility] Address [address] [place] [address]. [place] [address] Care Team Providers Name Role Phone Christiane Stahl MD Primary Care Provider [phone] Reason for Visit Reason Comments Cough Encounter Details Date Type Department Care Team Description 07/11/2018 Office Visit [facility] Christiane Stahl [facility] (Primary Dx); Clinic Jack Miller MD Chronic seasonal allergic rhinitis, unsp ecified trigger [address] [address] [place] [address] [phone] Social History Tobacco Use Types Packs/Day Years Used Date Smoking Tobacco: Never Smokeless Tobacco: Never Alcohol Use Standard Drinks/Week Comments No 0 (1 standard drink = 0.6 oz pure alcoho l) Sex Assigned at Date Recorded Not on file documented as of this encounter Last Filed Vital Signs Vital Sign Reading Time Taken Comments Blood Pressure 118/78 07/11/2018 1:26 PM CDT Pulse 66 07/11/2018 1:26 PM CDT Temperature 36.6 ??C (97.9 ??F) 07/11/2018 1:26 PM CDT Respiratory Rate 20 07/11/2018 1:26 PM CDT Oxygen Saturation 99% 07/11/2018 1:26 PM CDT Inhaled Oxygen Concentration - - Weight 98 kg (216 lb 1.6 oz) 07/11/2018 1:26 PM CDT Height 179.1 cm (5' 10.5) 07/11/2018 1:26 PM CDT Body Mass Index 30.57 07/11/2018 1:26 PM CDT Body Mass Index Percentile 96.65 % 07/11/2018 1:26 PM CD T Growth Chart: [facility] (Boys, 2-20 Years) documented in this encounter Patient Instructions Patient InstructionsChristiane Stahl MD - 07/11/2018 1:20 PM CDT Viral illness has likely triggered wheezing. Albuterol up to every 4 hrs- inhaler or neb. Prednisone now to help wheezing- twice per day for 5 days. Flonase- nose spray- use daily until we have a good overton to treat allergies which can trigger wheezing. If not improving over next 5 days to let us know. documented in this encounter Progress Notes Christiane Stahl MD - 07/11/2018 1:20 PM CDT SUBJECTIVE: Saurabh Poon is a 18 year old male who presents to clinic today with mother because of: Chief Complaint Patient presents with ??? Cough HPI ENT/Cough Symptoms Problem started: 3 days ago Fever: no Runny nose: YES Congestion: Yes Sore Throat: YES Cough: YES Eye discharge/redness: no Ear Pain: no Wheeze: YES Sick contacts: None; Strep exposure: None; Therapies Tried: Nebulizer this AM with no relief Cough, sore throat, and runny nose since Monday. Denies fever and sneezing. Wheezing. Has not had issues with asthma for a couple years. Used brother's nebulizer this morning with no improvement. 06/08/18 Seen with BOBianca. Took Augmentin. Not sure if allergies are issue. Not taking anything for them. Previous asthma history: 07/01 mom had called for inhaler just in case needed it. Prior summer (03/31) Saurabh asked us to remove asthma from problem list as he no longer had asthma. Additional- joining the [employer] branch; just got note for shoulder from me yesterday. ROS Constitutional, eye, ENT, skin, respiratory, cardiac, and GI are normal except as otherwise noted. PROBLEM LIST Patient Active Problem List Diagnosis Date Noted ??? Tear of left glenoid labrum 06/12/2015 Priority: Medium Repaired 06/29 ??? Overweight 05/30/2012 Priority: Medium BMI at 28.6- discussed ??? Seasonal allergic rhinitis 05/30/2012 Priority: Medium 03/23 Immunocap: mold, dust, grass, pollen, ragweed, dog and cat allergies; Total IgE 896. MEDICATIONS No current outpatient prescriptions on file. ALLERGIES No Known Allergies Reviewed and updated as needed this visit by clinical staff Tobacco Allergies Meds Med Hx Surg Hx Fam Hx Soc Hx Reviewed and updated as needed this visit by Provider This document serves as a record of the services and decisions personally performed and made by MD Alesha. It was created on his behalf by Xiomara Hancock, a trained certified ophthalmic medical technician.The creation of this document is based on the provider's statements to the certified ophthalmic medical technician. Xiomara Hancock July 11, 2018 1:29 PM OBJECTIVE: BP 118/78 Pulse 66 Temp 97.9 ??F (36.6 ??C) (Tympanic) Resp 20 Ht 5' 10.5 (1.791 m) Wt 216 lb 1.6 oz (98 kg) SpO2 99% BMI 30.57 kg/m2 65 %ile based on CDC 2-20 Years vulpjnf-opi-wet data using vitals from 07/11/2018. 97 %ile based on CDC 2-20 Years vabeoe-gqv-eth data using vitals from 07/11/2018. 97 %ile based on CDC 2-20 Years BMI-for-age data using vitals from 07/11/2018. Blood pressure percentiles are 40.8 % systolic and 78.5 % diastolic based on the May 2017 AAP Clinical Practice Guideline. GENERAL: Active, alert, in no acute distress. SKIN: Clear. No significant rash, abnormal pigmentation or lesions HEAD: Normocephalic. EYES: No discharge or erythema. Normal pupils and EOM. EARS: Clear serous middle ear effusions. Normal canals. NOSE: nasal congestion. MOUTH/THROAT: Clear. No oral lesions. Teeth intact without obvious abnormalities. NECK: Supple, no masses. LYMPH NODES: No adenopathy LUNGS: Lungs expiratory wheezes bilaterally HEART: Regular rhythm. Normal S1/S2. No murmurs. DIAGNOSTICS: None ASSESSMENT/PLAN: 1. Wheezing Given past history, strongly suspect asthma flare up even though he has not had to use inhaler in years. Combination of viral trigger with underlying allergies likely contributing. If any ongoing issues, need to re-add to problem list, ACT and AAP. - predniSONE (DELTASONE) 20 MG tablet; Take 1 tablet (20 mg) by mouth 2 times daily Dispense: 10 tablet; Refill: 0 - albuterol (PROAIR HFA/PROVENTIL HFA/VENTOLIN HFA) 108 (90 Base) MCG/ACT inhaler; Inhale 2 puffs into the lungs every 4 hours as needed for wheezing Dispense: 1 Inhaler; Refill: 1 2. Chronic seasonal allergic rhinitis, unspecified trigger Would recommend using this until first good overton to keep allergies controlled. Can do oral antihistamine also if needed. - fluticasone (FLONASE) 50 MCG/ACT spray; [place] 1 spray into both nostrils daily Dispense: 1 Bottle;Refill: 1 FOLLOW UP: If not improving over next 5 days or if worsening The information in this document, created by the certified ophthalmic medical technician for me, accurately reflects the services I personally performed and the decisions made by me. I have reviewed and approved this document for accuracy prior to leaving the patient care area. July 11, 2018 1:42 PM Christiane Ross MD documented in this encounter Plan of Treatment Not on filedocumented as of this encounter Visit Diagnoses Diagnosis Wheezing - Primary Chronic seasonal allergic rhinitis, unsp ecified trigger documented in this encounter Care Teams Fountain Helper Relationship Specialty Start Date End Date Christiane Stahl MD PCP - General Pediatrics 06/01/12 [id number] [id number] documented as of this encounter
--- OUTSIDE RECORDS SUMMARY | 2022-07-30 13:50 | XMS_ITS | Encounter Summary ---
:2000 Author Organization [place] Address [address] [facility] [place] [address] Care Team Providers Name Role Phone Christiane Stahl MD Primary Care Provider [phone] Christiane Stahl MD Unavailable [phone] Reason for Visit Reason Onset Date Comments Appointment 10/11/2019 Requesting an appoin tment sooner than 10/17/19 - pt returning to college Encounter Details Date Type Department Care Team Description 10/11/[address] [facility] Christiane Stahl Appoint [facility] Jack Miller MD (Requesting an [address] appointment sooner [place] [address] than 10/17/19 - [place] [phone] returning to college) [phone] Social History Tobacco Use Types Packs/Day Years Used Date Smoking Tobacco: Never Smokeless Tobacco: Never Alcohol Use Standard Drinks/Week Comments No 0 (1 standard drink = 0.6 oz pure alcoho l) Sex Assigned at Date Recorded Not on file documented as of this encounter Miscellaneous Notes Telephone Encounter - Leena Tsang H - 10/11/2019 12:42 PM CST Mother called back, wants to be Seen 10/18/19 in the morning, appointment has been made in the [facility] 10/18/19 at 840am. ER MAN Telephone Encounter - Leena Tsang - 10/11/2019 12:14 PM CST If mother calls back, we are holding the 340pm today with Dr Michael Ross, did leave both scheduling and my direct number on voice mail. ER MAN Telephone Encounter - Mariann Beebe V - 10/11/2019 11:19 AM CST Reason for Call: Other appointment Detailed comments: Patient's mother calling requesting to schedule an appointment for patient prior to 10/17/19 for a lump on the left side of his neck (x2 weeks). Patient's mother states patient is going back to college on 10/17/19, and is requesting to see PCP only. Please call back to advise further. Phone Number Patient can be reached at: Other phone number: [phone] Best Time: Any Can we leave a detailed message on this number? YES Call taken on 10/11/2019 at 11:20 AM by Mariann Beebe ER MAN documented in this encounter Plan of Treatment Not on filedocumented as of this encounter Visit Diagnoses Not on filedocumented in this encounter Care Teams Leather Lacer Relationship Specialty Start Date End Date Christiane Stahl MD PCP - General Pediatrics 06/01/12 [id number] [address] [id number] Christiane Stahl MD Assigned PCP 07/15/18 11/09/19 [id number] [address] [id number] documented as of this encounter
--- OUTSIDE RECORDS SUMMARY | 2022-07-30 13:50 | XMS_ITS | Encounter Summary ---
:2000 Author Organization [facility] Address [address] [place] [address]. [place] [address] Care Team Providers Name Role Phone Christiane Stahl MD Primary Care Provider [phone] Reason for Visit Reason Comments Allied Health Visit Encounter Details Date Type Department Care Team Description 07/13/2015 Allied Health/Nurse Health [facility] Allied Health Visit Visit [place] [address] [address] [phone] Social History Tobacco Use Types Packs/Day Years Used Date Smoking Tobacco: Never Smokeless Tobacco: Never Alcohol Use Standard Drinks/Week Comments No 0 (1 standard drink = 0.6 oz pure alcoho l) Sex Assigned at Date Recorded Not on file documented as of this encounter Plan of Treatment Not on filedocumented as of this encounter Visit Diagnoses Diagnosis Special screening examination for human papillomavirus (HPV) - Primary documented in this encounter Care Teams Transfill Technician Relationship Specialty Start Date End Date Christiane Stahl MD PCP - General Pediatrics 06/01/12 [address] [address] [id number] documented as of this encounter
--- OUTSIDE RECORDS SUMMARY | 2022-07-30 13:50 | XMS_ITS | Encounter Summary ---
:2000 Author Organization [place] Address [address] [facility] [place] [address] Care Team Providers Name Role Phone Christiane Stahl MD Primary Care Provider [phone] Reason for Visit Reason Onset Date Comments Refill Request 07/04/2016 ALBUTEROL SULFATE HF A 108 (90 BASE) MCG/ACT IN AERS Encounter Details Date Type Department Care Team Description 07/04/2016 Refill [facility] Christiane Stahl Refill Request Clinic Jack Miller MD (ALBUTEROL SULFATE HFA [address] 108 (90 BASE) MCG/ACT [place] [address] [address] [place]) [id number] [phone] Social History Tobacco Use Types Packs/Day Years Used Date Smoking Tobacco: Never Smokeless Tobacco: Never Alcohol Use Standard Drinks/Week Comments No 0 (1 standard drink = 0.6 oz pure alcoho l) Sex Assigned at Date Recorded Not on file documented as of this encounter Miscellaneous Notes Telephone Encounter - Malissa Lynn - 07/19/2016 11:31 AM CDT 3rd attempt: Patient mother stated that patient refused to fill it out, I asked her if she could speak with him and fill it out and return it to us, she said she will try and once it's filled out she will drop it off at the clinic. Telephone Encounter - Rowan Quintero CMA - 07/04/2016 3:36 PM CDT Mailed ACT and AAP, waiting for ACT send back Telephone Encounter - Christiane Stahl MD - 07/04/2016 3:16 PM CDT Please mail ACT along with return envelope and the AAP I printed. Telephone Encounter - Kat Brown RN - 07/04/2016 3:08 PM CDT Mom calls back. She wants the ACT and AAP mailed to there [place]. She said he is getting better today. Telephone Encounter - Rowan Quintero CMA - 07/04/2016 1:13 PM CDT Tried The number listed and home number under mom, I couldn't leave a message on either phone. Called moms mobile and left message asking to give us a call back. Telephone Encounter - Christiane Stahl MD - 07/04/2016 10:49 AM CDT At his check up this summer, he asked that we quit asking him to do asthma control test because he no longer had asthma. We removed asthma from his problem list. He needs an updated ACT before I can fill this and I will need to write an Asthma Plan. I can mail both to the house and once we get ACT back, I will fill the inhaler. If needs today, should come by to complete this. I did an AAP that we can either mail or if comes to office. Telephone Encounter - Audelia Anton - 07/04/2016 10:43 AM CDT Mother called, son was having issues yesterday, he is better today however Mother would like inhalerto have on hand just in case. Spoke to nurse and she said to route to [facility] to decide if he needs apptnow - he was last seen for well child this March 2016 - may not need to be seen again until Sep for 6month checj ALBUTEROL SULFATE HFA 108 (90 BASE) MCG/ACT IN AERS Last Written Prescription Date: 05/27/14 Last Fill Quantity: 1, # refills: 1 Last Office Visit with G, P or [facility] prescribing provider: 03/28/16 Future Office Visit: Date of Last Asthma Action Plan Letter: There are no preventive care reminders to display for this patient. Asthma Control Test: ACT Total Scores 06/12/2015 ACT TOTAL SCORE - ASTHMA ER VISITS - ASTHMA HOSPITALIZATIONS - ACT TOTAL SCORE (Goal Greater than or Equal to 20) 25 In the past 12 months, how many times did you visit the emergency room for your asthma without beingadmitted to the hospital? 0 In the past 12 months, how many times were you hospitalized overnight because of your asthma? 0 Date of Last Spirometry Test: No results found for this or any previous visit. documented in this encounter Plan of Treatment Not on filedocumented as of this encounter Procedures Procedure Name Priority Date/Time Associated Diagnosis Comme nts ASTHMA ACTION PLAN Routine 07/04/2016 12:22 PM CDT documented in this encounter Visit Diagnoses Diagnosis Mild persistent asthma with exacerbation - Primary Unspecified asthma, with exacerbation documented in this encounter Care Teams Recreation Professor Relationship Specialty Start Date End Date Christiane Stahl MD PCP - General Pediatrics 06/01/12 [address] [place] [address] documented as of this encounter
--- OUTSIDE RECORDS SUMMARY | 2022-07-30 13:50 | XMS_ITS | Encounter Summary ---
:2000 Author Organization [place] Address [address] [place] [address]. [place] [address] Care Team Providers Name Role Phone Christiane Stahl MD Primary Care Provider [phone] Reason for Visit Reason Comments Panel Management Encounter Details Date Type Department Care Team Description 03/15/[address] [facility] Christiane Stahl [facility] [place] [address] [address] [address] [facility] [place] [address] Social History Tobacco Use Types Packs/Day Years Used Date Smoking Tobacco: Never Smokeless Tobacco: Never Alcohol Use Standard Drinks/Week Comments No 0 (1 standard drink = 0.6 oz pure alcoho l) Sex Assigned at Date Recorded Not on file documented as of this encounter Progress Notes Rowan Quintero CMA - 03/15/2016 10:29 AM CDT Panel Management Review Patient has the following on his problem list: None Composite cancer screening Chart review shows that this patient is due/due soon for the following well child and immunizations Summary: Patient is due/failing the followinrd HPV 2nd Menactra Action needed: Patient needs office visit for well child and immunizations. Type of outreach: Sent letter. Questions for provider review: None Rowan Ochoa CMA documented in this encounter Plan of Treatment Not on filedocumented as of this encounter Visit Diagnoses Not on filedocumented in this encounter Care Teams Warehouse Team Member Relationship Specialty Start Date End Date Christiane Stahl MD PCP - General Pediatrics 06/01/12 [address] [address] [place] [address] documented as of this encounter
--- OUTSIDE RECORDS SUMMARY | 2022-07-30 13:50 | XMS_ITS | Encounter Summary ---
:2000 Author Organization [facility] Address [address] [place] [address] Care Team Providers Name Role Phone Christiane Stahl MD Primary Care Provider [phone] Encounter Details Date Type Department Care Team Description 11/16/2016 Telephone [facility] Eneida Rehman, RN [address] [place] [address] Social History Tobacco Use Types Packs/Day Years Used Date Smoking Tobacco: Never Smokeless Tobacco: Never Alcohol Use Standard Drinks/Week Comments No 0 (1 standard drink = 0.6 oz pure alcoho l) Sex Assigned at Date Recorded Not on file documented as of this encounter Miscellaneous Notes Telephone Encounter - Eneida Rehman RN - 11/16/2016 8:57 PM CST Call Type: Triage Call Presenting Problem: Seen 11/11 and dx w/ influenza. Took course of Tamiflu - done w/ this now. Mom calling for 2nd time today. Called yesterday as well. Same complaints - still has headache and nasal congestion. No fever. No breathing difficulty. Some coughing. Disc'd home care advice per guideline. Mom said we've tried all that. Last took ibuprofen 400mg at 4pm for headache. Advised could take this again. Already tried warm shower, saline, Sudafed for congestion. Advised warm liquids mom said we tried that. Disc'd w/ mom that there is not much else to try. Keep using current symptomatic tx. These may not give complete relief but should help minimize sx and sx will gradually improveh Triage Note: Guideline Title: Influenza (Flu) Follow-Up Call (Pediatric) Recommended Disposition: Provide Home/Self Care Original Inclination: Wanted to speak with a nurse Override Disposition: Intended Action: Follow Selfcare / Homecare Physician Contacted: No [1] Diagnosed influenza AND [2] no complications (all triage questions negative) ? YES Child sounds very sick or weak to the triager ? NO Yellow scabs around the nasal opening ? NO [1] Crying continuously AND [2] cannot be comforted AND [3] present > 2 hours ? NO Sounds like a life-threatening emergency to the triager ? NO Slow, shallow, weak breathing ? NO [1] Fever AND [2] > 105 F (40.6 C) by any route OR axillary > 104 F (40 C) ? NO [1] Age < 2 years AND [2] ear infection suspected by triager ? NO [1] Age > 5 years AND [2] sinus pain around cheekbone or eye (not just congestion) AND [3] fever ? NO Blocked nose keeps from sleeping after using nasal washes several times ? NO [1] Bluish lips, tongue or face now AND [2] persists when not coughing ? NO [1] Lips or face have turned bluish BUT [2] only during coughing spasms ? NO Fever present > 3 days (72 hours) ? NO [1] Nasal discharge AND [2] present > 14 days ? NO Cough present > 3 weeks ? NO [1] Using nasal washes and pain medicine > 24 hours AND [2] sinus pain persists AND [3] no fever ? NO Very weak (doesn't move or make eye contact) ? NO Rapid breathing (Breaths/min > 60 if < 2 mo; > 50 if 2-12 mo; > 40 if 1-5 years; > 30 if 6-12 years; > 20 if > 12 years old) ? NO [1] Dehydration suspected AND [2] age > 1 year (signs: no urine > 12 hours AND very dry mouth, no tears, ill-appearing, etc.) ? NO [1] Age < 3 months AND [2] lots of coughing ? NO Earache or ear discharge also present ? NO Difficult to awaken or not alert when awake ? NO [1] Stridor (harsh sound with breathing in confirmed by triager) AND [2] present now OR has occurred 2 or more times ? NO [1] MODERATE chest pain (by caller's report) AND [2] can't take a deep breath ? NO [1] Fever returns after gone for over 24 hours AND [2] symptoms worse or not improved ? NO Pneumonia diagnosed ? NO Bronchiolitis diagnosed ? NO [1] Asthma attack (coughing, wheezing) is main concern AND [2] previously diagnosed with asthma OR using asthma medicines ? NO Wheezing present and no previous diagnosis of asthma ? NO Taking antibiotics for an ear infection ? NO Taking antibiotics for a sinus infection ? NO [1] Continuous coughing keeps from playing or sleeping AND [2] no improvement using cough treatment per guideline ? NO [1] Taking antiviral medication AND [2] has question about the medication that triager can't answer ? NO [1] Age < 12 weeks AND [2] fever 100.4 F (38.0 C) or higher rectally ? NO [1] Stridor (harsh sound with breathing in) occurred BUT [2] not present now ? NO Vomiting Tamiflu (or other antiviral) is the main concern ? NO [1] SEVERE chest pain (excruciating) AND [2] present now ? NO [1] Difficulty breathing (per caller) AND [2] not severe AND [3] not relieved by cleaning out the nose (Triage tip: Listen to the child's breathing.) ? NO Influenza exposure, but no symptoms ? NO Influenza suspected, but hasn't been diagnosed ? NO Severe difficulty breathing (struggling for each breath, unable to speak or cry, making grunting noises with each breath, severe retractions) (Triage tip: Listen to the child's breathing.) ? NO [1] Dehydration suspected AND [2] age < 1 year (Signs: no urine > 8 hours AND very dry mouth, no tears, ill appearing, etc.) ? NO Triager concerned about patient's response to recommended treatment plan ? NO Physician Instructions: Care Advice: HOME CARE: You should be able to treat this at home. CALL BACK IF: * Breathing becomes difficult or rapid * Fever lasts over 3 days * Fever goes away over 24 hours and then returns * Nasal discharge lasts over 14 days * Cough lasts over 3 weeks * Your child becomes worse MEDICINES FOR FLU: * AGE LIMIT: Before 4 years, never use any cough or cold medicines. Reason: Unsafe and not approved by the FDA. Also, do not use products that contain more than one medicine. * COLD MEDICINES: They are not advised. Reason: They can't remove dried mucus from the nose. Nasal washes are the answer. * DECONGESTANTS: Decongestants by mouth (such as Sudafed) are not advised. They may help nasal congestion in older children. Decongestant nasal spray is preferred after age 12. * ALLERGY MEDICINES: They are not helpful, unless your child also has nasal allergies. They can also help an allergic cough. * NO ANTIBIOTICS: Antibiotics are not helpful for flu. Antibiotics may be used if your child gets an ear or sinus infection. RUNNY NOSE: BLOW OR SUCTION THE NOSE: * The nasal mucus and discharge is washing viruses and bacteria out of the nose and sinuses. * Having your child blow the nose is all that is needed. For younger children, use nasal suction. * If the skin around the nostrils becomes sore or irritated, apply a little petroleum jelly twice a day. (Cleanse the skin first with water.) CARE ADVICE given per Influenza (Flu) Follow-Up Call (Pediatric) guideline. EXPECTED COURSE: * The fever lasts 2-3 days, the runny nose 1-2 weeks and the cough 2-3 weeks. FEVER MEDICINE AND TREATMENT: * For fever above 102 F (39 C) or aches, use acetaminophen OR ibuprofen (See Dosage table). * AVOID ASPIRIN because of the strong link with Clay syndrome. * FOR ALL FEVERS: Give cool fluids in unlimited amounts (Exception: less than 6 months old). Dress in 1 layer of light-weight clothing and sleep with 1 light blanket. (Avoid bundling). Reason: overheated infants can't undress themselves. For fevers 100-102 F (37.8 to 39 C), this is the only treatment needed. Fever medicines are unnecessary. HOMEMADE COUGH MEDICINE: * AGE: 3 Months to 1 year: * Give warm clear fluids (e.g., water or apple juice) to thin the mucus and relax the airway. Dosage: 1-3 teaspoons (5-15 ml) four times per day. * Note to Triager: Option to be discussed only if caller complains that nothing else helps: Give a small amount of corn syrup. Dosage: 1/4 teaspoon (1 ml). Can give up to 4 times a day when coughing. Caution: Avoid honey until 1 year old (Reason: risk for botulism). * AGE 1 year and older: Use HONEY 1/2 to 1 tsp (2 to 5 ml) as needed as a homemade cough medicine. It can thin the secretions and loosen the cough. (If not available, can use corn syrup.) * AGE 6 years and older: Use COUGH DROPS to decrease the tickle in the throat. (If not available, can use hard candy.) HUMIDIFIER: * If the air in your home is dry, use a humidifier. * Moist air keeps the nasal mucus from drying up. NASAL SALINE TO OPEN A BLOCKED NOSE: * Use saline (salt water) nose drops or spray to loosen up the dried mucus. If you don't have saline, you can use a few drops of bottled water or clean tap water. (If under 1 year old, use bottled water or boiled tap water.) * STEP 1: Put 3 drops in each nostril. (Age under 1 year old, use 1 drop.) * STEP 2: Blow (or suction) each nostril separately, while closing off the other nostril. Then do other side. * STEP 3: Repeat nose drops and blowing (or suctioning) until the discharge is clear. * How Often: Do nasal saline when your child can't breathe through the nose. Limit: If under 1 year old, no more than 4 times per day or before every feeding. * Saline nose drops or spray can be bought in any drugstore. No prescription is needed. * Saline nose drops can also be made at home. Use 1/2 teaspoon (2 ml) of table salt. Stir the salt into 1 cup (8 ounces or 240 ml) of warm water. Use bottled water or boiled water to make saline nose drops. * Reason for nose drops: Suction or blowing alone can't remove dried or sticky mucus. Also, babies can't nurse or drink from a bottle unless the nose is open. * Other option: use a warm shower to loosen mucus. Breathe in the moist air, then blow (or suction) each nostril. * For young children, can also use a wet cotton swab to remove sticky mucus. NOTE TO TRIAGER - SEE ADDITIONAL GUIDELINE: * For yellow eye discharge or the eyelids stuck together with pus, after using this guideline to treat flu symptoms, go to the Eye With Pus guideline. NOTE TO TRIAGER - SEE ADDITIONAL GUIDELINE: * If the child is taking asthma medicines such as albuterol or xopenex (Angelic: salbutamol) to manage their coughing or wheezing, also use the Asthma Attack guideline. REASSURANCE AND EDUCATION: * For most healthy people, the symptoms of influenza (seasonal and new strains) are similar to those of the common cold. * However, with flu, the onset is more abrupt and the symptoms are more severe. Feeling very sick for the first 3 days is common. * The treatment of influenza depends on your child's main symptoms and usually is no different from that used for other viral respiratory infections. * Continue any treatment your child's doctor recommended. * Patients recover from influenza (seasonal and new strains) with supportive symptom care. * Bed rest is unnecessary. SORE THROAT PAIN RELIEF: * Children over 1 year old can sip warm chicken broth or apple juice. * Children over 6 years old can suck on hard candy or lollipops. * Children over 8 years old can also gargle warm water with a little table salt or liquid antacid added. * For moderate to severe throat pain, ibuprofen is very effective (See Dosage Table). * Fluids: Encourage adequate fluids to prevent dehydration. NG OFFICER documented in this encounter Plan of Treatment Not on filedocumented as of this encounter Visit Diagnoses Not on filedocumented in this encounter Care Teams Hvac Instructor Relationship Specialty Start Date End Date Christiane Stahl MD PCP - General Pediatrics 06/01/12 [id number] [place] [id number] documented as of this encounter
--- OUTSIDE RECORDS SUMMARY | 2022-07-30 13:50 | XMS_ITS | Encounter Summary ---
:2000 Author Organization [facility] Address [address] [place] [address] Care Team Providers Name Role Phone Christiane Stahl MD Primary Care Provider Encounter Details Date Type Department Care Team Description 09/16/2014 Therapy Visit [facility] Bonita Jane, Pain in joint, shoulder region, left (Primary Dx); [facility] Other specified aftercare following surg jovany; Jack [facility] Sprain and strain of other specified sit es of shoulder and upper arm [id number] [place], [place] [address] [id number] [place], [place] [phone] Social History Tobacco Use Types Packs/Day Years Used Date Smoking Tobacco: Never Smokeless Tobacco: Never Alcohol Use Standard Drinks/Week Comments No 0 (1 standard drink = 0.6 oz pure alcoho l) Sex Assigned at Date Recorded Not on file documented as of this encounter Progress Notes Eveline Kerr, PT - 09/16/2014 8:52 AM CST Subjective: HPI Objective: System Physical Exam General ROS Assessment/Plan: DISCHARGE REPORT Progress reporting period is from 07/29/14 to 09/16/14. SUBJECTIVE Subjective: Wants to get back to snowboarding. No pain, HEP going well. Current Pain level: 0/10. Initial Pain level: 3/10. Changes in function: Yes (See Goal flowsheet attached for changes in current functional level) Adverse reaction to treatment or activity: None OBJECTIVE Changes noted in objective findings: Yes Objective: Full AROM, MMT grossly 5/5, Cueing for mechanics, but improved overall ASSESSMENT/PLAN Updated problem list and treatment plan: Diagnosis 1: Knee pain Pain - self management, education and home program Decreased ROM/flexibility - therapeutic exercise, therapeutic activity and home program Decreased function - therapeutic activities and home program Impaired posture - neuro re-education, therapeutic activities and home program STG/LTGs have been met or progress has been made towards goals: Yes (See Goal flow sheet completed today.) Assessment of Progress: The patient's condition is improving. The patient's condition has potential to improve. 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 Self Management Plans: Patient has been instructed in a home treatment program. Patient is independent in a home treatment program. Patient has been instructed in self management of symptoms. I have re-evaluated this patient and find that the nature, scope, duration and intensity of the therapy is appropriate for the medical condition of the patient. Saurabh continues to require the following intervention to meet STG and LTG's: PT intervention is no longer required to meet STG/LTG. Recommendations: This patient is ready to be discharged from therapy and continue their home treatment program. Please refer to the daily flowsheet for treatment today, total treatment time and time spent performing 1:1 timed codes. OON PILOT Bonita Jane, PROCEDURE TECH - 09/16/2014 7:39 AM CST Subjective: HPI Objective: System Physical Exam General ROS Assessment/Plan: DISCHARGE REPORT Progress reporting period is from 07/23/2014 to 09/16/2014. SUBJECTIVE Subjective changes noted by patient: Wants to get back to snowboarding. No pain, HEP going well. Current pain level is : 0/10 Previous pain level was: 3/10 Changes in function: Yes, see goal flow sheet for change in function Adverse reaction to treatment or activity: None OBJECTIVE Changes noted in objective findings: Yes, Full AROM, MMT grossly 5/5, Cueing for mechanics, but improved overall OON PILOT documented in this encounter Miscellaneous Notes Addendum Note - Eveline Kerr, PT - 09/16/2014 8:56 AM BALLOON PILOT Addended by: EVELINE KERR on: 09/16/2014 08:56 AM Modules accepted: Orders OON PILOT documented in this encounter Plan of Treatment Not on filedocumented as of this encounter Procedures Procedure Name Priority Date/Time Associated Diagnosis Comme nts Z NEUROMUSCULAR Routine 09/16/2014 7:42 AM Pain in joint, RE-EDUCATION BALLOON PILOT shoulder region, left Other Specified Aftercare Following Surgery Sprain And Strain Of Other Specified Sites Of Shoulder And Upper Arm [facility] THERAPEUTIC EXERCISES Routine 09/16/2014 7:42 AM Pain in j oint, BALLOON PILOT shoulder region, left Other Specified Aftercare Following Surgery Sprain And Strain Of Other Specified Sites Of Shoulder And Upper Arm documented in this encounter Visit Diagnoses Diagnosis Pain in joint, shoulder region, left - P rimary Other specified aftercare following surg jovany Sprain and strain of other specified sit es of shoulder and upper arm documented in this encounter Care Teams Fuel Attendant Relationship Specialty Start Date End Date Christiane Stahl MD PCP - General Pediatrics 06/01/12 [id number] [place] [id number] documented as of this encounter
--- OUTSIDE RECORDS SUMMARY | 2022-07-30 13:50 | XMS_ITS | Encounter Summary ---
:2000 Author Organization [facility] Address [address] [place] [address] Care Team Providers Name Role Phone Christiane Stahl MD Primary Care Provider [phone] Christiane Stahl MD Unavailable [phone] Reason for Visit Reason Comments Mass Encounter Details Date Type Department Care Team Description 10/18/2019 Office Visit [facility] Chin Keller, Lymph adenopathy Clinic [facility] (Primary Dx) [address] [address] [place], [place] [phone] (Wo rk) Social History Tobacco Use Types Packs/Day Years Used Date Smoking Tobacco: Never Smokeless Tobacco: Never Alcohol Use Standard Drinks/Week Comments No 0 (1 standard drink = 0.6 oz pure alcoho l) Sex Assigned at Date Recorded Not on file documented as of this encounter Last Filed Vital Signs Vital Sign Reading Time Taken Comments Blood Pressure 122/70 10/18/2019 9:02 AM ALUMINUM BOAT ASSEMBLY SUPERVISOR Pulse 82 10/18/2019 9:02 AM ALUMINUM BOAT ASSEMBLY SUPERVISOR Temperature 36.6 ??C (97.9 ??F) 10/18/2019 9:02 AM ALUMINUM BOAT ASSEMBLY SUPERVISOR Respiratory Rate - - Oxygen Saturation 98% 10/18/2019 9:02 AM ALUMINUM BOAT ASSEMBLY SUPERVISOR Inhaled Oxygen Concentration - - Weight 87.1 kg (192 lb) 10/18/2019 9:02 AM ALUMINUM BOAT ASSEMBLY SUPERVISOR Height 179.1 cm (5' 10.5) 10/18/2019 9:02 AM ALUMINUM BOAT ASSEMBLY SUPERVISOR Body Mass Index 27.16 10/18/2019 9:02 AM ALUMINUM BOAT ASSEMBLY SUPERVISOR documented in this encounter Patient Instructions Patient InstructionsChin Keller DO - 10/18/2019 8:40 AM CST Images from the original note were not included. Patient Education Lymphadenopathy Lymphadenopathy is swelling of the lymph nodes. Lymph nodes are small, rahman- shaped glands around thebody. What are lymph nodes? Lymph nodes are part of your immune system. These glands are found in your neck, over your clavicle,armpits, groin, chest, and abdomen. They act as filters for lymph fluid as it flows through your body. Lymph fluid contains white blood cells (lymphocytes) that help the body fight infection and disease.?? Why lymph nodes swell Lymphadenopathy is very common. The glands often enlarge during a viral or bacterial infection. It can happen during a cold, the flu, or strep throat. The nodes may swell in just one area of the body, such as the neck (localized). Or nodes may swell all over the body (generalized). The neck (cervical)lymph nodes are the most common site of lymphadenopathy. What causes lymphadenopathy? cells and fluid build up in the lymph nodes as they help fight infection or disease. This causes them to swell in size. Enlarged lymph nodes are often near the source of infection. This can help to find the cause of an infection. For example, swollen lymph nodes around the jaw may be because of an infection in the teeth or mouth. But lymphadenopathy may also be generalized. This is common in some viral illnesses such as infectious mononucleosis, HIV or chickenpox (varicella). Lymphadenopathy can also be caused by: ?? Infection of a lymph node or small group of nodes (lymphadenitis) ?? Cancer ?? Reactions to medicines such as antibiotics and certain blood pressure, gout, and seizure medicines ?? Other health conditions, such as lupus or sarcoidosis Symptoms of lymphadenopathy Lymphadenopathy can cause symptoms such as: ?? Lumps under the jaw, on the sides or back of the neck, in the armpits, in the groin, or in the chest or belly (abdomen) ?? Pain or tenderness in any of these areas ?? Redness or warmth in any of these areas You may also have symptoms from an infection causing the swollen glands. These symptoms may include fever, sore throat, body aches, or cough. Diagnosing lymphadenopathy Your healthcare provider will ask about your health history and symptoms. He or she will give you a physical exam and check the areas where lymph nodes are enlarged. Your healthcare provider will checkthe size. texture, and location of the nodes, and ask how long they have been swollen and if they are painful. Diagnostic tests and referral to specialists may be recommended. They may include: ?? Blood tests. These are done to check for signs of infection and other problems. ?? Urine test. This is also done to check for infection and other problems. ?? Chest X-ray, ultrasound, CT scan, or MRI scans. These tests can show enlarged lymph nodes or other problems. ?? Lymph node biopsy. The cause of enlarged lymph nodes may be checked with a biopsy. Small samples of lymph node tissue are taken and checked in a lab for signs of infection, cancer and other causes. You may be referred to other specialistsfor their opinion as well. Treatment for lymphadenopathy The treatment of enlarged lymph nodes depends on the cause. Enlarged lymph nodes are often harmless and go away without any treatment. Treatment is most often done on the cause of the enlarged nodes and may include: ?? Antibiotic or antiviral medicine to treat a bacterial or viral infection ?? Incision and drainage of a lymph node for lymphadenitis ?? Other medicines or procedures to treat the cause of the enlarged nodes You may need a follow-up exam in 3 to 4 weeks to recheck enlarged nodes. When to call your healthcare provider Call your healthcare provider if your symptoms worsen, you develop new symptoms, you have a fever of100.4??F (38??C) or higher, lymph nodes that are still swollen after 3 to 4 weeks, or as directed byyour healthcare provider. Date Last Reviewed: 02/13/2017 ?? [id number] [employer] [address] [place] [address], [place] [address]. All rights reserved. This information is not intended as a substitute for professional medical care. Always follow your healthcare professional's instructions. INUM BOAT ASSEMBLY SUPERVISOR documented in this encounter Progress Notes Chin Keller DO - 10/18/2019 8:40 AM CST Subjective Saurabh Poon is a 19 year old male who presents to clinic today for the following health issues: HPI Concern - lump on left side of neck Onset: 2 weeks ?? Description: Had cold recently and noticed a lump on the left side of his neck. Cold symptoms resolved but lump on neck never went away ?? Intensity: mild ?? Progression of Symptoms: Improving, getting smaller ?? Accompanying Signs & Symptoms: none ?? Previous history of similar problem: none ?? Precipitating factors: Worsened by: none ?? Alleviating factors: Improved by: none Therapies Tried and outcome: none Had a cough, sore throat, congestion. No decrease in appetite. No weight loss. Denies fevers or chills. These symptoms resolved. Overall, feels like lump is smaller. Does not hurt when touched. Patient Active Problem List Diagnosis ??? Overweight ??? Seasonal allergic rhinitis ??? Tear of left glenoid labrum Past Surgical History: Procedure Laterality Date ??? ARTHROTOMY SHOULDER 06/25/2014 Procedure: ARTHROTOMY SHOULDER; Surgeon: Campbell Hartley MD; Location: [facility] OR Social History Tobacco Use ??? Smoking status: Never Smoker ??? Smokeless tobacco: Never Used Substance Use Topics ??? Alcohol use: No Alcohol/week: 0.0 standard drinks Family History Problem Relation Age of Onset ??? Genetic Disorder Brother citrullinemia- developmental delay ??? Genetic Disorder Mother ??? Genetic Disorder Father ??? Diabetes Father ??? Circulatory Father ??? Eye Disorder Maternal Grandmother ??? Eye Disorder Paternal Grandmother ??? Diabetes Paternal Grandmother ??? Cerebrovascular Disease Paternal Grandfather ??? Heart Disease Maternal Grandfather Reviewed and updated as needed this visit by Provider Tobacco Allergies Meds Problems Med Hx Surg Hx Fam Hx Review of Systems ROS COMP: Constitutional, HEENT, cardiovascular, pulmonary, gi and gu systems are negative, except as otherwise noted. Objective BP 122/70 Pulse 82 Temp 97.9 ??F (36.6 ??C) (Oral) Ht 1.791 m (5' 10.5) Wt 87.1 kg (192 lb) SpO2 98% BMI 27.16 kg/m?? Body mass index is 27.16 kg/m??. Physical Exam GENERAL: healthy, alert and no distress HENT: ear canals and TM's normal, nose and mouth without ulcers or lesions NECK: cervical adenopathy bilaterally, palpable lymph node in area of concern, no asymmetry, masses,or scars and thyroid normal to palpation RESP: lungs clear to auscultation - no rales, rhonchi or wheezes CV: regular rate and rhythm, normal S1 S2, no S3 or S4, no murmur, click or rub, no peripheral edemaand peripheral pulses strong ABDOMEN: soft, nontender, no hepatosplenomegaly, no masses and bowel sounds normal MS: no gross musculoskeletal defects noted, no edema PSYCH: mentation appears normal, affect normal/bright Diagnostic Test Results: Labs reviewed in [facility] Results for orders placed or performed in visit on 10/18/19 CBC with platelets and differential Status: None Result Value Ref Range WBC 4.7 4.0 - 11.0 10e9/L RBC Count 5.09 4.4 - 5.9 10e12/L Hemoglobin 15.4 13.3 - 17.7 g/dL Hematocrit 42.9 40.0 - 53.0 % MCV 84 78 - 100 fl MCH 30.3 26.5 - 33.0 pg MCHC 35.9 31.5 - 36.5 g/dL RDW 12.5 10.0 - 15.0 % Platelet Count 225 150 - 450 10e9/L % Neutrophils 41.5 % % Lymphocytes 40.3 % % Monocytes 12.0 % % Eosinophils 4.9 % % Basophils 1.3 % Absolute Neutrophil 1.9 1.6 - 8.3 10e9/L Absolute Lymphocytes 1.9 0.8 - 5.3 10e9/L Absolute Monocytes 0.6 0.0 - 1.3 10e9/L Absolute Eosinophils 0.2 0.0 - 0.7 10e9/L Absolute Basophils 0.1 0.0 - 0.2 10e9/L Diff Method Automated Method Assessment & Plan 1. Lymphadenopathy: history consistent with reactive lymph node from recent upper respiratory infection. Will check blood counts. Advised monitoring for any change. If not continuing to get smaller or if any additional change, will order ultrasound. - CBC with platelets and differential Return in about 3 weeks (around 11/08/2019) for follow up if symptoms not improving. Chin Keller DO [facility] INUM BOAT ASSEMBLY SUPERVISOR documented in this encounter Plan of Treatment Not on filedocumented as of this encounter Procedures Procedure Name Priority Date/Time Associated Diagnosis Comme nts CBC WITH PLATELETS & Routine 10/18/2019 10:01 Lymphadenopathy Results for this DIFFERENTIAL AM ALUMINUM BOAT ASSEMBLY SUPERVISOR procedure are i n the results section. documented in this encounter Results CBC with platelets and differential (10/18/2019 10:01 AM ALUMINUM BOAT ASSEMBLY SUPERVISOR) [facility] Method Time Signature WBC 4.7 4.0 - 10/18/2019 [facility] 11.0 11:12 AM ALUMINUM BOAT ASSEMBLY SUPERVISOR CLINICS 10e9/L EDGE RBC Count 5.09 4.4 - 5.9 10/18/2019 [facility] 10e12/L 11:12 AM ALUMINUM BOAT ASSEMBLY SUPERVISOR CLINICS EDGE Hemoglobin 15.4 13.3 - 10/18/2019 [facility] 17.7 g/dL 11:12 AM ALUMINUM BOAT ASSEMBLY SUPERVISOR CLINICS EDGE Hematocrit 42.9 40.0 - 10/18/2019 [facility] 53.0 % 11:12 AM ALUMINUM BOAT ASSEMBLY SUPERVISOR CLINICS EDGE MCV 84 78 - 100 10/18/2019 [facility] fl 11:12 AM ALUMINUM BOAT ASSEMBLY SUPERVISOR CLINICS EDGE MCH 30.3 26.5 - 10/18/2019 [facility] 33.0 pg 11:12 AM ALUMINUM BOAT ASSEMBLY SUPERVISOR CLINICS EDGE MCHC 35.9 31.5 - 10/18/2019 [facility] 36.5 g/dL 11:12 AM ALUMINUM BOAT ASSEMBLY SUPERVISOR CLINICS EDGE RDW 12.5 10.0 - 10/18/2019 [facility] 15.0 % 11:12 AM ALUMINUM BOAT ASSEMBLY SUPERVISOR CLINICS EDGE Platelet Count 225 150 - 450 10/18/2019 [facility] 10e9/L 11:12 AM ALUMINUM BOAT ASSEMBLY SUPERVISOR CLINICS EDGE % Neutrophils 41.5 % 10/18/2019 [facility] 11:12 AM ALUMINUM BOAT ASSEMBLY SUPERVISOR CLINICS EDGE % Lymphocytes 40.3 % 10/18/2019 [facility] 11:12 AM ALUMINUM BOAT ASSEMBLY SUPERVISOR CLINICS EDGE % Monocytes 12.0 % 10/18/2019 [facility] 11:12 AM ALUMINUM BOAT ASSEMBLY SUPERVISOR CLINICS EDGE % Eosinophils 4.9 % 10/18/2019 [facility] 11:12 AM ALUMINUM BOAT ASSEMBLY SUPERVISOR CLINICS EDGE % Basophils 1.3 % 10/18/2019 [facility] 11:12 AM ALUMINUM BOAT ASSEMBLY SUPERVISOR CLINICS EDGE Absolute 1.9 1.6 - 8.3 10/18/2019 [facility] Neutrophil 10e9/L 11:12 AM ALUMINUM BOAT ASSEMBLY SUPERVISOR CLINICS EDGE Absolute 1.9 0.8 - 5.3 10/18/2019 [facility] Lymphocytes 10e9/L 11:12 AM ALUMINUM BOAT ASSEMBLY SUPERVISOR CLINICS EDGE Absolute 0.6 0.0 - 1.3 10/18/2019 [facility] Monocytes 10e9/L 11:12 AM ALUMINUM BOAT ASSEMBLY SUPERVISOR CLINICS EDGE Absolute 0.2 0.0 - 0.7 10/18/2019 [facility] Eosinophils 10e9/L 11:12 AM ALUMINUM BOAT ASSEMBLY SUPERVISOR CLINICS EDGE Absolute 0.1 0.0 - 0.2 10/18/2019 [facility] Basophils 10e9/L 11:12 AM ALUMINUM BOAT ASSEMBLY SUPERVISOR CLINICS EDGE Diff Method Automated 10/18/2019 [facility] Method 11:12 AM ALUMINUM BOAT ASSEMBLY SUPERVISOR CLINICS EDGE Specimen Anatomical Collection Method Collection Time Receive d Time (Source) Location / / Volume Laterality Blood specimen 10/18/2019 10:01 0 (specimen) AM ALUMINUM BOAT ASSEMBLY SUPERVISOR 10:03 AM ALUMINUM BOAT ASSEMBLY SUPERVISOR Chin Keller DO LAB - BLOOD ORDERABLES Performing Organization Address City/State/ZIP Code Phon e Number [facility] [address] [address] [phone] documented in this encounter Visit Diagnoses Diagnosis Lymphadenopathy - Primary Enlargement of lymph nodes documented in this encounter Care Teams Blood Bank Laboratory Technologist Relationship Specialty Start Date End Date Christiane Stahl MD PCP - General Pediatrics 06/01/12 [address] [address] [place] [id number] Christiane Stahl MD Assigned PCP 07/15/18 11/09/19 [address] [address] [place] [id number] documented as of this encounter
--- OUTSIDE RECORDS SUMMARY | 2022-07-30 13:50 | XMS_ITS | Encounter Summary ---
:2000 Author Organization [facility] Address [address] [place] [address] Care Team Providers Name Role Phone Christiane Stahl MD Primary Care Provider [phone] Reason for Visit Reason Comments Surgical Followup L shoulder open labral repai r, DOS 06/25/14, Dr. Hartley Encounter Details Date Type Department Care Team Description 09/19/2014 Office Visit [facility] Darin Pike ow-up Orthopedic Clinic SIMÓN Castillo examination, [place] [id number] [place] [address] [place] [address] [address] unspecified surgery [address] [place] [address] (Primary Dx) [place] [address] [phone] Social History Tobacco Use Types Packs/Day Years Used Date Smoking Tobacco: Never Smokeless Tobacco: Never Alcohol Use Standard Drinks/Week Comments No 0 (1 standard drink = 0.6 oz pure alcoho l) Sex Assigned at Date Recorded Not on file documented as of this encounter Patient Instructions Patient InstructionsDarin Pike PA-C - 09/19/2014 8:28 AM HIDE SHAKER Continue with home exercise up to 6 months after surgery (DOS was 06/25/14.) Return to non contact sports at 4 months post op. In weight lifting, focus on quality vs quantity. Good form with higher repetitions at first. Return to contact sports at 6 months post op. Follow up as needed in clinic. SHAKER documented in this encounter Progress Notes Darin Pike PA-C - 09/19/2014 8:22 AM CST HISTORY OF PRESENT ILLNESS: Saurabh Poon is a 14 year old male who is seen in follow up for L shoulder open labral repair, DOS 06/25/14, Dr. Hartley. Present symptoms: Pt reports no pain. Feels his ROM is symmetric with the right. Shoulder still has some weakness. Has refrained from contact and other sports, but has started light weight training. PThas discharged with exercises. No other complaints. Would like to get back to snowboarding now and baseball in January. Father present for appt. Denies Chest pain, Calve pain, Fever, Chills. Current Treatment: Post op, Home exercises. PHYSICAL EXAM: There were no vitals taken for this visit. There is no height or weight on file to calculate BMI. GENERAL APPEARANCE: healthy, alert and no distress PSYCH: mentation appears normal and affect normal/bright MSK: Left: Shoulder . Pt is right hand dominant. Ambulates: WNG. Incision clean and dry, well healed. No incisional erythema. No Ecchymosis. Or Edema. CMS: leatha incisional numbness, otherwise grossly intact to hand. AROM Flexion 180, abd 180, int rot 120, ext rot 80. All motions grossly symmetric with right. Subjective left shoulder weakness, but 5.5 on testing. IMAGING INTERPRETATION: None today. ASSESSMENT: Saurabh Poon is a 14 year old male S/P L shoulder open labral repair, DOS 06/25/14, Dr. Hartley. ROM excellent. Weakness, as expected at 3 months post op. PLAN: - Surgery discussed, images reviewed if applicable, and all questions were answered at this time. - care instructions given and verbally acknowledged. - Physical Therapy: As directed at discharge/ per referral - discharged so continue with home exercises for 6 months post op. - Per Dr. Barboza recommendations, RTP at 4 months for non contact and 6 months for contact sports. Return to clinic PRN. Darin Pike PA-C Dept. Orthopedic Surgery [facility] SHAKER documented in this encounter Plan of Treatment Not on filedocumented as of this encounter Visit Diagnoses Diagnosis Follow-up examination, following unspeci fied surgery - Primary documented in this encounter Care Teams Wet End Tester Relationship Specialty Start Date End Date Christiane Stahl MD PCP - General Pediatrics 06/01/12 [address] [place] [address] documented as of this encounter
--- OUTSIDE RECORDS SUMMARY | 2022-07-30 13:50 | XMS_ITS | Encounter Summary ---
:2000 Author Organization [place] [facility] Address [address] [place] [address]. [place] [address] Care Team Providers Name Role Phone Christiane Stahl MD Primary Care Provider [phone] Reason for Visit Reason Onset Date Comments Patient Request for Note/Letter 07/09/2018 Encounter Details Date Type Department Care Team Description 07/09/[address] [facility] Christiane Stahl Patient Request for Clinic Jack Miller MD Note/Letter [address] [address] [facility] [place] [address] [address] [phone] Social History Tobacco Use Types Packs/Day Years Used Date Smoking Tobacco: Never Smokeless Tobacco: Never Alcohol Use Standard Drinks/Week Comments No 0 (1 standard drink = 0.6 oz pure alcoho l) Sex Assigned at Date Recorded Not on file documented as of this encounter Miscellaneous Notes Telephone Encounter - Rowan Quintero CMA - 07/10/2018 10:00 AM CDT Informed Saurabh that letter was completed and put up at the net front end developer for pickle water pump operator Telephone Encounter - Christiane Stahl MD - 07/09/2018 6:27 PM CDT Letter done. Please call to let know. Telephone Encounter - Tabitha Gallego - 07/09/2018 1:40 PM CDT Reason for call: Other Patient called regarding (reason for call): Needs a clearance letter for for physical activity in regards to the shoulder surgery he had in 2013. Additional comments: Please call him with any questions and would like this as soon as possible. Phone number to reach patient: Home number on file [phone] (home) Best Time: any Can we leave a detailed message on this number? YES documented in this encounter Plan of Treatment Not on filedocumented as of this encounter Visit Diagnoses Not on filedocumented in this encounter Care Teams Vegetable Farmer Relationship Specialty Start Date End Date Christiane Stahl MD PCP - General Pediatrics 06/01/12 [address] [place] [address] documented as of this encounter
--- OUTSIDE RECORDS SUMMARY | 2022-07-30 13:50 | XMS_ITS | Encounter Summary ---
:2000 Author Organization [facility] Address [address] [place] [address]. [place] [address] Care Team Providers Name Role Phone Christiane Stahl MD Primary Care Provider [phone] Encounter Details Date Type Department Care Team Description 03/29/2016 Office Visit [facility] Christiane Stahl (Patient) [place] [address] [address] [address] [place] [phone] Social History Tobacco Use Types Packs/Day Years [...] on filedocumented in this encounter Care Teams Molder Vacuum Relationship Specialty Start Date End Date Christiaen Stahl MD PCP - General Pediatrics 06/01/12 [address] [address] [place] [id number] documented as of this encounter
--- OUTSIDE RECORDS SUMMARY | 2022-07-30 13:50 | XMS_ITS | Encounter Summary ---
:2000 Author Organization [facility] Address [address] [place] [address]. [place] [address] Care Team Providers Name Role Phone Christiane Stahl MD Primary Care Provider [phone] Reason for Visit Reason Onset Date Comments Flu 11/16/2016 symptoms continuing Encounter Details Date Type Department Care Team Description 11/16/[address] [facility] Michael Christiane Ross ( [facility] Oxana Miller MD continuing) [address] [address] [place] [address] [phone] Social History Tobacco Use Types Packs/Day Years Used Date Smoking Tobacco: Never Smokeless Tobacco: Never Alcohol Use Standard Drinks/Week Comments No 0 (1 standard drink = 0.6 oz pure alcoho l) Sex Assigned at Date Recorded Not on file documented as of this encounter Miscellaneous Notes Telephone Encounter - Carolyn Nguyễn RN - 11/16/2016 1:37 PM CST Mom notified. Carolyn Nguyễn, education courses sales representative Nurse A ENGINEER Telephone Encounter - Juliette Nava PA-C - 11/16/2016 12:59 PM SCADA ENGINEER He will likely be symptomatic for another week or so, would recommend supportive care, no need for further recheck unless worsening. Juliette Nava PA-C A ENGINEER Telephone Encounter - Carolyn Nguyễn RN - 11/16/2016 12:28 PM CST Patient is calling with continuing headache and cough, no fever, sinus congestion. No sore throat. Feeling miserable. He is taking tylenol, not regularly, not using nasal spray regularly or decongestants. Encouraged him to Treat symptoms, rest, increase fluids. He is not feeling better, has missed schoolall week. Done with tamiflu. Advised to take decongestant for nasal congestion, nasal spray, increased humidity. Any other suggestions? Dr. Michael Ross is out of the office until Monday. Should he be seen again? Carolyn Nguyễn, education courses sales representative Nurse A ENGINEER documented in this encounter Plan of Treatment Not on filedocumented as of this encounter Visit Diagnoses Not on filedocumented in this encounter Care Teams Asbestos Coverer Relationship Specialty Start Date End Date Christiane Stahl MD PCP - General Pediatrics 06/01/12 [address] [place] [address] documented as of this encounter
--- OUTSIDE RECORDS SUMMARY | 2022-07-30 13:50 | XMS_ITS | Encounter Summary ---
:2000 Author Organization [facility] Address [address] [place] [address] Care Team Providers Name Role Phone Christiane Stahl MD Primary Care Provider [phone] Reason for Visit Reason Comments Ear Problem left ear is plugged x 1 week Encounter Details Date Type Department Care Team Description 11/12/2014 Office Visit [facility] Christiane Stahl OME (ot [facility] Jack Miller MD with effusion), [address] bilateral (Primary [place], [facility], [place] [address] Dx) [id number] [phone] Social History Tobacco Use Types Packs/Day Years Used Date Smoking Tobacco: Never Smokeless Tobacco: Never Alcohol Use Standard Drinks/Week Comments No 0 (1 standard drink = 0.6 oz pure alcoho l) Sex Assigned at Date Recorded Not on file documented as of this encounter Last Filed Vital Signs Vital Sign Reading Time Taken Comments Blood Pressure 140/62 11/12/2014 8:40 AM DIRECTOR OF [employer]AND [employer] Pulse 67 11/12/2014 8:40 AM [employer]OR [employer] Temperature 36.8 ??C (98.2 ??F) 11/12/2014 8:40 AM [employer] Respiratory Rate - - Oxygen Saturation 100% 11/12/2014 8:40 AM [employer] Inhaled Oxygen Concentration - - Weight 94.7 kg (208 lb 11.2 oz) 11/12/2014 8:40 AM [employer] Height 177.5 cm (5' 9.88) 11/12/2014 8:40 AM [employer] Body Mass Index 30.05 11/12/2014 8:40 AM DIRECTOR [employer] Body Mass Index Percentile 97.98 % 11/12/2014 8:40 AM CS T Growth Chart: [facility] (Boys, 2-20 Years) documented in this encounter Patient Instructions Patient InstructionsChristiane Stahl MD - 11/12/2014 9:03 AM DIRECTOR [employer] You have fluid inside your middle ear space but it is not infected. I would like you to try using Flonase nasal spray 1-2 times per day and also some Sudafed daily to see if it will help decongest and allow middle ear fluid to drain. If not improving over the next 1-2 weeks or pain is getting worse to call back. [employer] documented in this encounter Progress Notes Christiane Stahl MD - 11/12/2014 8:42 AM CST SUBJECTIVE: Saurabh Poon is a 14 year old male who presents to clinic today with mother because of: Chief Complaint Patient presents with ??? Ear Problem left ear is plugged x 1 week HPI: Concerns: Child's left ear is plugged x 1 week Denies having any cold or allergy symptoms recently but seems very sniffly today. He has known allergies. Not currently taking anything. No asthma symptoms. Has recovered from recent shoulder surgery and is starting to weight lift. ROS: Negative for constitutional, eye, ear, nose, throat, skin, respiratory, cardiac, and gastrointestinal other than those outlined in the HPI. PROBLEM LIST: Patient Active Problem List Diagnosis Date Noted ??? Intermittent asthma 05/30/2012 Singulair ??? Overweigth 05/30/2012 BMI at 28.6- discussed ??? Seasonal allergic rhinitis 05/30/201203/23 Immunocap: mold, dust, grass, pollen, ragweed, dog and cat allergies; Total IgE 896. MEDICATIONS: Current Outpatient Prescriptions Medication Sig Dispense Refill ??? HYDROcodone-acetaminophen (NORCO) 5-325 MG per tablet Take 1-2 tablets by mouth every 4 hours asneeded for other (Moderate to Severe Pain) 36 tablet 0 ??? albuterol (PROAIR HFA, PROVENTIL HFA, VENTOLIN HFA) 108 (90 BASE) MCG/ACT inhaler Inhale 2 puffsinto the lungs every 4 hours as needed for shortness of breath / dyspnea 1 Inhaler 1 ??? montelukast (SINGULAIR) 10 MG tablet Take 1 tablet by mouth At Bedtime. 90 tablet 3 ALLERGIES: No Known Allergies Problem list and histories reviewed & adjusted, as indicated. OBJECTIVE: BP 140/62 Pulse 67 Temp(Src) 98.2 ??F (36.8 ??C) (Oral) Ht 5' 9.88 (1.775 m) Wt 208 lb 11.2oz (94.666 kg) BMI 30.05 kg/m2 SpO2 100% 98.7% systolic and 37.6% diastolic of BP percentile by age, sex, and height. 134/85 is approximatelythe 95th BP percentile reading. GENERAL: Active, alert, in no acute distress. SKIN: Clear. No significant rash, abnormal pigmentation or lesions HEAD: Normocephalic. EYES: No discharge or erythema. Normal pupils and EOM. EARS: Normal canals. RIGHT EAR: clear serous effusion LEFT EAR: carlitos colored serous effusion NOSE: mucosal edema MOUTH/THROAT: Clear. No oral lesions. Teeth intact without obvious abnormalities. NECK: Supple, no masses. LYMPH NODES: No adenopathy LUNGS: Clear. No rales, rhonchi, wheezing or retractions HEART: Regular rhythm. Normal S1/S2. No murmurs. DIAGNOSTICS: None ASSESSMENT/PLAN: (381.4) OME (otitis media with effusion), bilateral (primary encounter diagnosis) Comment: Bilateral middle ear fluid but more symptomatic on left. Suspect some of his allergies may be contributing to his symptoms. Plan: fluticasone (FLONASE) 50 MCG/ACT nasal spray to treat nasal symptoms and could try Sudafed to see if this will help unplug ears. No indication for antibiotic at present. FOLLOW UP: If not improving over next couple weeks or if worsening sooner. Christiane Ross MD [employer] documented in this encounter Nursing Notes Mary Burkett, CAPO - 11/12/2014 8:42 AM CST Chief Complaint Patient presents with ??? Ear Problem left ear is plugged x 1 week Initial BP 140/62 Pulse 67 Temp(Src) 98.2 ??F (36.8 ??C) (Oral) Ht 5' 9.88 (1.775 m) Wt 208lb 11.2 oz (94.666 kg) BMI 30.05 kg/m2 SpO2 100% Estimated body mass index is 30.05 kg/(m^2) as calculated from the following: Height as of this encounter: 5' 9.88 (1.775 m). Weight as of this encounter: 208 lb 11.2 oz (94.666 kg). BP completed using cuff size: X-large Mcintosh Madelaine SCANLON [employer] documented in this encounter Plan of Treatment Not on filedocumented as of this encounter Visit Diagnoses Diagnosis OME (otitis media with effusion), bilate ral - Primary documented in this encounter Care Teams Spinner Frame Relationship Specialty Start Date End Date Christiane Stahl MD PCP - General Pediatrics 06/01/12 [address] [id number] documented as of this encounter
--- OUTSIDE RECORDS SUMMARY | 2022-07-30 13:50 | XMS_ITS | Encounter Summary ---
:2000 Author Organization [facility] Address [address] [place] [address] Care Team Providers Name Role Phone Christiane Stahl MD Primary Care Provider [phone] Christiane Stahl MD Unavailable [phone] Christiane Stahl MD Unavailable [phone] Reason for Visit Reason Onset Date Comments Patient Request for Note/Letter 07/12/2018 Encounter Details Date Type Department Care Team Description 07/12/2018 [facility] Christiane Stahl Patient Request for Clinic Jack Miller MD Note/Letter [id number] [address] [address] [place] [facility] [place] [address] [phone] Social History Tobacco Use Types Packs/Day Years Used Date Smoking Tobacco: Never Smokeless Tobacco: Never Alcohol Use Standard Drinks/Week Comments No 0 (1 standard drink = 0.6 oz pure alcoho l) Sex Assigned at Date Recorded Not on file documented as of this encounter Miscellaneous Notes Telephone Encounter - Rowan Quintero CMA - 07/16/2018 11:07 AM CDT Mini Wiley that form is complete and up at front maker for slate picker Telephone Encounter - Christiane Stahl MD - 07/16/2018 10:47 AM CDT My letter states he is cleared for all activity. I re-wrote it with dates seen by PT and [facility]. If they need anything more he will need to go thru [facility]. Please call and let him know this. He can come by to slate picker the letter anytime. Telephone Encounter - Bhakti [place] - 07/16/2018 10:20 AM CDT Deshaun is calling back. He states that the letter did not have enough detail. He needs a letter indicating he is cleared and that there is no progress note to attach. He would like to pick this up ANDREA. Telephone Encounter - Christiane Stahl MD - 07/12/2018 11:56 AM CDT Deshaun emailed me a note stating that the letter I provided re: his shoulder for [employer] was not adequate and they needed documentation of actual clinic notes clearing him December 2014. I sent note back requesting that he either fax, mail or use [employer] instead of email to communicate back about this. Informed that there was no actual visit on that date to send them I went off of his dischargefrom PT in Sep with 3 more mos restriction on activities- total 6 mos from surgery. Does not look like there were any other f/u visits that I see. Next visit 05/30 was for physical and he told me he hadno restrictions. He may be forced to have a visit with surgeon or psorts med provider to give him the documentation of clearance that they are requesting. documented in this encounter Plan of Treatment Not on filedocumented as of this encounter Visit Diagnoses Not on filedocumented in this encounter Care Teams Laundry Manager Relationship Specialty Start Date End Date Christiane Stahl MD PCP - General Pediatrics 06/01/12 [address] [place] [address] Christiane Stahl MD PCP - Assigned PCP 07/15/18 12/18/18 [address] [place] [address] Christiane Stahl MD Assigned PCP 07/15/18 11/09/19 [address] [place] [address] documented as of this encounter
--- OUTSIDE RECORDS SUMMARY | 2022-07-30 13:51 | XMS_ITS | Encounter Summary ---
:2000 Author Organization [facility] Address [address] [place] [address]. [place] [address] Care Team Providers Name Role Phone Joel Stahl MD Primary Care Provider [phone] Reason for Visit Reason Comments Pre-Op Exam Surgery June 25, 2014 [facility] Encounter Details Date Type Department Care Team Description 06/20/2014 Office Visit [facility] Joel Stahl Preoper ative examination (Primary Dx); Clinic Jack Miller MD Injury of superior glenoid labrum of khushboo ulder joint, left, subsequent encounter; [address] Intermittent asthma; [place] [address] [place]; [place], [place] [phone] (Wo rk) Seasonal allergic rhinitis [id number] [phone] Social History Tobacco Use Types Packs/Day Years Used Date Smoking Tobacco: Never Smokeless Tobacco: Never Alcohol Use Standard Drinks/Week Comments No 0 (1 standard drink = 0.6 oz pure alcoho l) Sex Assigned at Date Recorded Not on file documented as of this encounter Last Filed Vital Signs Vital Sign Reading Time Taken Comments Blood Pressure 122/68 06/20/2014 2:38 PM CDT Pulse 47 06/20/2014 2:38 PM CDT Temperature 37.7 ??C (99.8 ??F) 06/20/2014 2:38 PM CDT Respiratory Rate - - Oxygen Saturation 100% 06/20/2014 2:38 PM CDT Inhaled Oxygen Concentration - - Weight 87 kg (191 lb 14.4 oz) 06/20/2014 2:38 PM CDT Height 177.4 cm (5' 9.84) 06/20/2014 2:38 PM CDT Body Mass Index 27.66 06/20/2014 2:38 PM CDT Body Mass Index Percentile 96.55 % 06/20/2014 2:38 PM CD T Growth Chart: [facility] (Boys, 2-20 Years) documented in this encounter Patient Instructions Patient InstructionsJoel Stahl MD - 06/20/2014 2:58 PM CDT Be sure to review the guidelines from when to stop food and drink prior to surgery (NPO). No Ibuprofen (Motrin, Advil), Aleve or Aspirin for one week prior to surgery. Pre-op form is on done electronically and is available on line at [facility]. If your child should become ill between now and the time of surgery, please call us. documented in this encounter Progress Notes Joel Stahl MD - 06/20/2014 2:38 PM CDT PREOPERATIVE EXAMINATION Date of exam: June 20, 2014 Date of surgery: June 25, 2014 Surgeon: Dr. Campbell Hartley Primary physician: Joel Stahl Hospital/Surgical Facility: [facility] Procedure: L shoulder labral repair Expected anesthesia method: General HISTORY OF PRESENT ILLNESS Chief complaint: Left shoulder pain Symptom onset: Pain in shoulder since last September History of Present Illness: Worse with activity Patient Active Problem List Diagnosis Date Noted ??? Intermittent asthma 05/30/2012 Singulair ??? Overweigth 05/30/2012 BMI at 28.6- discussed ??? Seasonal allergic rhinitis 05/30/201203/23 Immunocap: mold, dust, grass, pollen, ragweed, dog and cat allergies; Total IgE 896. History Smoking status ??? Never Smoker Smokeless tobacco ??? Never Used Current Outpatient Prescriptions Medication Sig Dispense Refill ??? azithromycin (ZITHROMAX) 250 MG tablet Two tablets first day, then one tablet daily for four days. 6 tablet 0 ??? albuterol (PROAIR HFA, PROVENTIL HFA, VENTOLIN HFA) 108 (90 BASE) MCG/ACT inhaler Inhale 2 puffsinto the lungs every 4 hours as needed for shortness of breath / dyspnea 1 Inhaler 1 ??? montelukast (SINGULAIR) 10 MG tablet Take 1 tablet by mouth At Bedtime. 90 tablet 3 There has been NO use of aspirin or ibuprofen in the 7 days before surgery. No Known Allergies FAMILY HISTORY No family history of bleeding disorders or anesthesia reactions. PAST MEDICAL HISTORY No major illnesses or hospitalizations Past history negative for bleeding tendencies, prior sedation, anesthesia reactions, allergies, asthma, croup, hepatitis, HIV, chickenpox. No past surgical history on file. No prior surgeries. Immunizations current: Yes REVIEW OF SYSTEMS No contagious contact to chickenpox, measles, fifth disease, whooping cough, tuberculosis. Recent illness? YES, 06/11/14- illness with wheezing. Treated with Albuterol, Prednisone and Zithromax. Better now. Cough gone. Not use inhaler anymore. General: normal energy and appetite. Skin: no rash, hives, other lesions. Eyes: no pain, discharge, redness, itching. ENT: no earache, sneezing, nasal congestion, sinus pain, dental concerns. Respiratory: no cough, wheeze, respiratory distress. Cardiovascular: no tachycardia, palpitations, syncope. Gastrointestinal: no nausea, vomiting, diarrhea, constipation, abdominal pain. Musculoskeletal: no myalgia or arthralgia. Neurology: no weakness, tingling, numbness, headache, syncope. PHYSICAL EXAM BP 122/68 Pulse 47 Temp(Src) 99.8 ??F (37.7 ??C) (Oral) Ht 5' 9.84 (1.774 m) Wt 191 lb 14.4oz (87.045 kg) BMI 27.66 kg/m2 SpO2 100% GENERAL: Active, alert, in no acute distress. SKIN: Clear. No significant rash, abnormal pigmentation or lesions HEAD: Normocephalic. EYES: Normal and symmetric pupillary reflexes. Normal fundoscopic exam. Normal conjunctivae. EARS: Normal canals. Tympanic membranes [...] no masses or hepatosplenomegaly. Bowel sounds normal. EXTREMITIES: Full range of motion, no deformities NEUROLOGIC: No focal findings. Cranial nerves grossly intact: DTR's normal. Normal gait, strength and tone LABORATORY None STUDIES 06/12/14 MRI of shoulder IMPRESSION: Findings are consistent with a previous anterior glenohumeral joint dislocation. This includes a tear of the anterior-inferior labrum (soft tissue Bankart deformity) as well as a Hill-Sachs lesion of the humeral head. IMPRESSION Operative condition: Left shoulder -tear of labrum The family has written instructions for NPO and arrival times. NO surgical or anesthetic risks have been identified. History of asthma with recent respiratory infection and exacerbation- now resolved. Took steroid for only 3 days. Off since 05/3014. Saurabh had questions about recovery time after surgery. Encouraged them to call [facility] to discuss as Jacob not certain. June 20, 2014 JOEL STAHL (electronically signed once this encounter has been closed--see header) [address] [address] This report is available electronically at [facility]. documented in this encounter Nursing Notes Mary Burkett CMA - 06/20/2014 2:38 PM CDT Chief Complaint Patient presents with ??? Pre-Op Exam Surgery June 25, 2014 at [facility] Katja Burkett CMA documented in this encounter Plan of Treatment Not on filedocumented as of this encounter Visit Diagnoses Diagnosis Preoperative examination - Primary Preoperative examination, unspecified Injury of superior glenoid labrum of khushboo ulder joint, left, subsequent encounter Intermittent asthma Unspecified asthma Overweigth Obesity, unspecified Seasonal allergic rhinitis Allergic rhinitis, cause unspecified documented in this encounter Care Teams Self Contained Behavior Unit Teacher Relationship Specialty Start Date End Date Joel Stahl MD PCP - General Pediatrics 06/01/12 [address] [place] [address] documented as of this encounter
--- OUTSIDE RECORDS SUMMARY | 2022-07-30 13:51 | XMS_ITS | Encounter Summary ---
:2000 Author Organization [facility] Address [address] [place] [address] Care Team Providers Name Role Phone Christiane Stahl MD Primary Care Provider [phone] Reason for Visit (Routine) - Closed Specialty Diagnoses / Procedures Referred By Contact Refer red To Contact Radiology / Radiology. Diagnoses Epic Order Sh Xray Procedures XR SHOULDER GADOLINIUM INJ [address] [place] [address] Phone: Referral ID Status Reason Start Date Expiration Date Visits Requ ested Visits Authorized [id number] Closed 06/10/2014 06/10/2015 1 1 Encounter Details Date Type Department Care Team Description 06/12/2014 Hospital Encounter [facility] Campbell Hartley, Pain in joint, [facility] Imaging shoulder region, [address] [address] [address] [place] [address] [address] [address] [phone] [place], [place] [phone] [id number] Social History Tobacco Use Types Packs/Day Years Used Date Smoking Tobacco: Never Smokeless Tobacco: Never Sex Assigned at Date Recorded Not on file documented as of this encounter Last Filed Vital Signs Vital Sign Reading Time Taken Comments Blood Pressure 139/71 06/12/2014 9:23 AM CDT Pulse 70 06/12/2014 9:23 AM CDT Temperature - - Respiratory Rate - - Oxygen Saturation 100% 06/12/2014 9:23 AM CDT Inhaled Oxygen Concentration - - Weight - - Height - - Body Mass Index - - documented in this encounter Discharge Instructions Discharge InstructionsPan LidiaMARYBEL - 06/12/2014 9:31 AM CDT Orthopedic Discharge Instructions: After Your Injection or Aspiration Patient Name: Saurabh Poon Today's Date: June 12, 2014 The doctor who performed your left shoulder gadavist inject Was Troy Mae at [facility]) in the General Radiology Department Care of needle site ?? If you have new numbness down your leg, this may last up to 6 hours, but it should go away. You may need help with walking until your leg feels normal. ?? Over the next 24 to 48 hours, pain at the needle site may increase before it gets better. ?? For the next 48 hours, use ice packs for 15 minutes, three to four times a day for pain. ?? If you have a bandage, you may remove it the next morning. ?? No tub baths, hot tubs or swimming for 48 hours. You may shower the next day. Activity ?? Do not drive until morning. ?? Limit your activity based on your pain level. Follow your doctor???s orders for activity. ?? You may eat a normal diet. ?? If you had sedation, - You may feel sleepy, forgetful or unsteady. - Do not drink alcohol for 24 hours. Medicines ?? If you take aspirin or platelet inhibitors, you can restart them tomorrow. ?? Restart all other medicines today at your regular dose, including Coumadin (warfarin). ?? If you are restarting Coumadin, talk to your doctor about having your INR checked. If you had a steroid shot ?? The medicine should help reduce swelling and pain. This may take from 7 to 10 days. ?? Side effects from the shot will be mild and go away in 2 to 3 days. Common side effects may include: - Insomnia (trouble sleeping). - Heartburn. - Flushed face. - Water retention (bloating or fluid build-up). - Increased appetite (feeling more hungry than usual). - Increased blood sugar. If you have diabetes, watch your blood sugar closely. If needed, call your doctor to help you control your blood sugar. Some patients will get lasting relief from a single shot. Others may require up to three shots to get results. If you have more than one steroid shot, they should be given two weeks apart. Some patients do not have relief of symptoms. Follow-up: No follow-up needed Call your doctor or go to the Emergency Room if you have severe pain, fever or problems with bowel or bladder control. documented in this encounter Medications at Time of Discharge Medication Sig Dispensed Refills Start Date End Date predniSONE (DELTASONE) Take 3 tablets (30 30 tablet 0 06/1106/16/2014 10 MG tabletIndications: mg) by mouth 2 times Mild persistent asthma daily for 5 days with acute exacerbation albuterol (PROAIR HFA, Inhale 2 puffs into 1 Inhaler 1 05/1607/04/2016 PROVENTIL HFA, VENTOLIN the lungs every 4 HFA) 108 (90 BASE) hours as needed for MCG/ACT shortness of breath / inhalerIndications: Mild dyspnea persistent asthma with exacerbation azithromycin (ZITHROMAX) Two tablets first 6 tablet 0 05/1706/20/2014 250 MG day, then one tablet tabletIndications: Acute daily for four days. bronchitis montelukast (SINGULAIR) Take 1 tablet by 90 tablet 3 201103/28/2016 10 MG tabletIndications: mouth At Bedtime. Mild persistent asthma with exacerbation documented as of this encounter Plan of Treatment Not on filedocumented as of this encounter Procedures Procedure Name Priority Date/Time Associated Diagnosis Comme nts XR SHOULDER Routine 06/12/2014 10:00 AM Pain in joint, Result s for this CONTRAST CT/MR CDT shoulder region, procedure are in INJECTION left the results section. documented in this encounter Results XR Shoulder Gadolinium Injection (06/12/2014 10:00 AM CDT) Anatomical Region Laterality Modality Shoulder, Upper Extremity Computed Radio graphy Specimen (Source) Anatomical Location Collection Method / Collectio n Time Received Time / Laterality Volume Impressions 06/12/2014 2:53 PM CDT IMPRESSION: ??Technically successful left shoulder injection with gadolinium for MR arthrogram. TROY MAE PA-C Narrative 06/12/2014 2:53 PM CDT XR SHOULDER GADOLINIUM INJECTION ?06/12/2014 10:00 AM ?? History: ??Previous dislocation. Persist ent left shoulder pain. Procedure: ??The risks (bleeding, infect ion, reaction to contrast and medications) and benefits of the procedu re were explained to the patient and consent was obtained. ??Usin g sterile technique and fluoroscopic guidance a 22 gauge needle was placed into the glenohumeral joint. ??A small amount of contrast was injected to confirm position of the needle tip. ?? 1 4 mL of Gadolinium 1:200 concentration and normal saline mixed wi th a small amount of Epinephrine 1:1000 was instilled. ??No i nitial complication. ??MR exam dictated separately. ?? Fluoroscopy time: 0.1 minutes Procedure Note Troy Mae PA-C - 06/12/2014F ormatting of this note might be different from the original. XR SHOULDER GADOLINIUM INJECTION 06/12/20 14 10:00 AM History: Previous dislocation. Persisten t left shoulder pain. Procedure: The risks (bleeding, infectio n, reaction to contrast and medications) and benefits of the procedu re were explained to the patient and consent was obtained. Using sterile technique and fluoroscopic guidance a 22 gauge needle was placed into the glenohumeral joint. A small amount of co ntrast was injected to confirm position of the needle tip. 14 m L of Gadolinium 1:200 concentration and normal saline mixed wi th a small amount of Epinephrine 1:1000 was instilled. No ini tial complication. MR exam dictated separately. Fluoroscopy time: 0.1 minutes IMPRESSION IMPRESSION: Technically successful left shoulder injection with gadolinium for MR arthrogram. TROY MAE PA-C Campbell Hartley MD IMG DIAGNOSTIC IMAGING ORDER RU documented in this encounter Visit Diagnoses Diagnosis Pain in joint, shoulder region, left documented in this encounter Administered Medications Inactive Administered Medications - up to 3 most recent administrations Medication Order MAR Action Action Date Dose Rate Site EPINEPHrine (ADRENALIN) Given by Other 06/12/2014 9:58 AM CDT 0.1 mLs injection 1 mg 1 mg (1 mL), INTRA-ARTICULAR, ONCE, On Hafsa 06/12/14 at 1000, For 1 dose, Not for direct undiluted intravenous injection. (1mg/mL = 1:1,000 concentration) gadobutrol (GADAVIST) injection 0.1 Given by Other 06/12/2014 9 :54 AM CDT 0.1 mLs mL 0.1 mL, INTRA-ARTICULAR, ONCE, On Hafsa 06/12/14 at 1000, For 1 dose, Supplied by, and administered by MRI. iopamidol ([id number]) 41% solution Given by Other 06/12/2014 9:55 AM CDT 1 mL 10 mL 10 mL, INTRA-ARTICULAR, ONCE, On Hafsa 06/12/14 at 1000, For 1 dose, Supplied and administered by Radiology. Lidocaine 1 % injection 5 mL Given by Other 06/12/2014 10:00 AM CDT 5 mLs 5 mL, Subcutaneous, ONCE, On Hafsa 06/12/14 at 1000, For 1 dose sodium chloride (PF) 0.9% PF flush Given by Other 06/12/2014 9:57 A M CDT 14 mLs 20 mL 20 mL, INTRA-ARTICULAR, ONCE, On Hafsa 06/12/14 at 1000, For 1 dose documented in this encounter Care Teams Biological Scientist Relationship Specialty Start Date End Date Christiane Stahl MD PCP - General Pediatrics 06/01/12 [id number] [place] [address] documented as of this encounter
--- OUTSIDE RECORDS SUMMARY | 2022-07-30 13:51 | XMS_ITS | Encounter Summary ---
:2000 Author Organization [facility] Address [address] [facility] [place] [address] Care Team Providers Name Role Phone Christiane Stahl MD Primary Care Provider [phone] Encounter Details Date Type Department Care Team Description 08/15/2014 Therapy Visit [facility] Eveline Frank P T Pain in joint, shoulder region, left (Pr imary Dx); Rehabilitation Services [facility] IAN RVIEW Status post labral repair of shoulder [address] [address] [place] [phone] Social History Tobacco Use Types Packs/Day Years Used Date Smoking Tobacco: Never Smokeless Tobacco: Never Alcohol Use Standard Drinks/Week Comments No 0 (1 standard drink = 0.6 oz pure alcoho l) Sex Assigned at Date Recorded Not on file documented as of this encounter Plan of Treatment Not on filedocumented as of this encounter Procedures Procedure Name Priority Date/Time Associated Diagnosis Comme nts [facility] THERAPEUTIC Routine 08/15/2014 7:12 AM Pain in joint, ACTIVITIES CDT shoulder region, left Status post labral repair of shoulder [facility] NEUROMUSCULAR Routine 08/15/2014 7:12 AM Pain in joint, RE-EDUCATION CDT shoulder region, left Status post labral repair of shoulder ZZC THERAPEUTIC EXERCISES Routine 08/15/2014 7:12 AM Pain in j oint, CDT shoulder region, left Status post labral repair of shoulder documented in this encounter Visit Diagnoses Diagnosis Pain in joint, shoulder region, left - P rimary Status post labral repair of shoulder documented in this encounter Care Teams Housing Management Officer Relationship Specialty Start Date End Date Christiane Stahl MD PCP - General Pediatrics 06/01/12 [address] [place] [address] documented as of this encounter
--- OUTSIDE RECORDS SUMMARY | 2022-07-30 13:51 | XMS_ITS | Encounter Summary ---
:2000 Author Organization [facility] Address [address] [place] [address] Care Team Providers Name Role Phone Christiane Stahl MD Primary Care Provider [phone] Reason for Visit Reason Onset Date Comments Results 06/12/2014 Encounter Details Date Type Department Care Team Description 06/12/2014 Telephone [facility] Campbell Hartley MD Results [facility] [place] [id number] [place] [address] [address] [facility] [address] [place] [address] [place] [address] [phone] Social History Tobacco Use Types Packs/Day Years Used Date Smoking Tobacco: Never Smokeless Tobacco: Never Sex Assigned at Date Recorded Not on file documented as of this encounter Miscellaneous Notes Telephone Encounter - Tonya Narayan RN - 06/12/2014 3:28 PM CDT Pt's mother LVM requesting call back to discuss MRI results. Call placed to pt's mother requesting an appt. To discuss results. She requests call be placed to her to schedule. Call placed to pt's father and f/u appt. Scheduled for tomorrow 06/13/14. Tonya Narayan RN documented in this encounter Plan of Treatment Not on filedocumented as of this encounter Visit Diagnoses Not on filedocumented in this encounter Care Teams Board Certified Orthodontist Relationship Specialty Start Date End Date Christiane Stahl MD PCP - General Pediatrics 06/01/12 [address] [place] [address] documented as of this encounter
--- OUTSIDE RECORDS SUMMARY | 2022-07-30 13:51 | XMS_ITS | Encounter Summary ---
:2000 Author Organization [facility] Address [address] [place] [address] Care Team Providers Name Role Phone Christiane Stahl MD Primary Care Provider [phone] Reason for Visit Reason Onset Date Comments Pt. Information/instruction 07/09/2014 Encounter Details Date Type Department Care Team Description 07/09/2014 Telephone [facility] Campbell Hartley MD Pt. Orthopedic Care [place] [address] [facility] Information/instructio [facility] [address] [place] [address] [address] [place] [id number] [phone] Social History Tobacco Use Types Packs/Day Years Used Date Smoking Tobacco: Never Smokeless Tobacco: Never Alcohol Use Standard Drinks/Week Comments No 0 (1 standard drink = 0.6 oz pure alcoho l) Sex Assigned at Date Recorded Not on file documented as of this encounter Miscellaneous Notes Telephone Encounter - Tonya Narayan RN - 07/09/2014 1:27 PM CDT Pt's father returns call to clinic. Discussed Max Pike's recommendations below. Gaurav states pt. Iseager to get going and is already taking sling off. Advised he wear sling for 4 weeks after surgery then slowly taper out of sling in safe environments. Number given for him to schedule PT 07/22/14 or after. He verbalizes agreement with POC. Tonya Narayan RN Telephone Encounter - Tonya Narayan RN - 07/09/2014 11:57 AM CDT Pt's father LVM stating pt. Is eager to start PT and he would like a call back to discuss when pt. Can start PT and what will be involved in the rehabilitation process. Per office visit 07/01/14: Sling for 4 weeks following surgery when ever moving around. May loosen sling for hygiene, elbow motions. After 4 weeks may slowly taper out of sling by removing in safe environments for increasing time perday. You may still want to wear in situations when injury may occur for several more weeks. Do not move arm out to the side past 90 degrees. No lifting over 5 lbs with left arm. Begin therapy in 3 weeks. Call to schedule [phone] Call placed to pt's father LVM requesting he return call to clinic to discuss POC. Asked if he needsto leave message to inform me if it is ok to leave detailed message car conditioner back number. Awaiting call back. Tonya Narayan RN documented in this encounter Plan of Treatment Not on filedocumented as of this encounter Visit Diagnoses Not on filedocumented in this encounter Care Teams Haz Tech Relationship Specialty Start Date End Date Christiane Stahl MD PCP - General Pediatrics 06/01/12 [address] [place] [address] documented as of this encounter
--- OUTSIDE RECORDS SUMMARY | 2022-07-30 13:51 | XMS_ITS | Encounter Summary ---
:2000 Author Organization [facility] Address [address] [place] [address]. [place] [address] Care Team Providers Name Role Phone Christiane Stahl MD Primary Care Provider [phone] Reason for Visit Reason Onset Date Comments Clarification 08/06/2014 Encounter Details Date Type Department Care Team Description 08/06/2014 Telephone [facility] Ann Stanton, PT Clarification Rehabilitation Services XXX [facility]I GNED XXX [place] [address] [place] [address] [address] [place] [phone] [place] [id number] (Wo rk) Social History Tobacco Use Types [...] on filedocumented in this encounter Care Teams Legal Advisor Relationship Specialty Start Date End Date Christiane Stahl MD PCP - General Pediatrics 06/01/12 [address] [address] [place] [address] documented as of this encounter
--- OUTSIDE RECORDS SUMMARY | 2022-07-30 13:51 | XMS_ITS | Encounter Summary ---
:2000 Author Organization [facility] Address [address] [place] [address]. [place] [address] Care Team Providers Name Role Phone Christiane Stahl MD Primary Care Provider [phone] Reason for Visit Reason Comments Well Child needs ALL, history form and possible sports px Pre Visit Planning - Done Encounter Details Date Type Department Care Team Description 05/30/2012 Office Visit [facility] Christiane Stahl Routine infant or child health check (Primary Dx); Clinic Jack Miller MD Mild persistent asthma with exacerbation ; [address] [address] [address] Sinusitis; [place] [address] OME (otitis media with effusion); [id number] [place]; [phone] Seasonal allergic rhinitis Social History Tobacco Use Types Packs/Day Years Used Date Smoking Tobacco: Never Smokeless Tobacco: Never Sex Assigned at Date Recorded Not on file documented as of this encounter Last Filed Vital Signs Vital Sign Reading Time Taken Comments Blood Pressure 120/80 05/30/2012 2:22 PM CDT Pulse 64 05/30/2012 2:22 PM CDT Temperature 36.6 ??C (97.8 ??F) 05/30/2012 2:22 PM CDT Respiratory Rate 12 05/30/2012 2:22 PM CDT Oxygen Saturation - - Inhaled Oxygen Concentration - - Weight 84.2 kg (185 lb 11.2 oz) 05/30/2012 2:22 PM CDT Height 171.5 cm (5' 7.5) 05/30/2012 2:22 PM CDT Body Mass Index 28.66 05/30/2012 2:22 PM CDT Body Mass Index Percentile 98.25 % 05/30/2012 2:22 PM CD T Growth Chart: [facility] (Boys, 2-20 Years) documented in this encounter Patient Instructions Patient InstructionsCorrina Aleman - 05/23/2012 1:20 PM CDT Images from the original note were not included. Home Back SP Well Child Checkup: 11-13 Years Between ages 11 and 13, your child will grow and change a lot. It???s important to keep having yearly checkups so the healthcare provider can track this progress. As your child enters puberty, he or she may become more embarrassed about having a checkup. Reassure your child that the exam is normal and necessary. Also be aware that the healthcare provider may ask to talk with the child without you in the exam room. Physical activity is mcconnell to lifelong good health. Encourage your child to find activities that he orshe enjoys. School and Social Issues Here are some topics you, your child, and the healthcare provider may want to discuss during this visit: ?? School performance. How is your child doing in school? Is homework finished on time? Does your child stay organized? These are skills you can help with. Keep in mind that a drop in school performance can be a sign of other problems. ?? Friendships. Do you like your child???s friends? Do the friendships seem healthy? Make sure to talk to your child about who his or her friends are and how they spend time together. This is the age when peer pressure can start to be a problem. ?? Life at home. How is your child???s behavior? Does he or she get along with others in the family?Is he or she respectful of you, other adults, and authority? Does your child participate in family events, or does he or she withdraw from other family members? ?? Risky behaviors. It???s not too early to start talking to your child about drugs, alcohol, smoking, and sex. Make sure your child understands that these are not activities he or she should do, even if friends are. Answer your child???s questions, and don???t be afraid to ask questions of your own. Make sure your child knows he or she can always come to you for help. If you???re not sure how to approach these topics, talk to the healthcare provider for advice. Entering Puberty Puberty is the stage when a child begins to develop sexually into an adult. It usually starts between 9 and 14 for girls, and between 12 and 16 for boys. Here is some of what you can expect when puberty begins: ?? Acne and body odor. Hormones that increase during puberty can cause acne (pimples) on the face and body. Hormones can also increase sweating and cause a stronger body odor. At this age, your child should begin to shower or bathe daily. Encourage your child to use deodorant and acne products as needed. ?? Body changes in girls. Early in puberty, breasts begin to develop. One breast often starts to grow before the other. This is normal. Hair begins to grow in the pubic area, under the arms, and on thelegs. Around 2 years after breasts begin to grow, a girl will start having monthly periods (menstruation). To help prepare your daughter for this change, talk to her about periods, what to expect, and how to use feminine products. ?? Body changes in boys. At the start of puberty, the testicles drop lower and the scrotum darkens and becomes looser. Hair begins to grow in the pubic area, under the arms, and on the legs, chest, andface. The voice changes, becoming lower and deeper. As the penis grows and matures, erections and ???wet dreams?? begin to occur. Reassure your son that this is normal. ?? Emotional changes. Along with these physical changes, you???ll likely notice changes in your child???s personality. You may notice your child developing an interest in dating and becoming ???more than friends?? with others. Also, many kids become flynn and develop an attitude around puberty. This can be frustrating, but it is very normal. Try to be patient and consistent. Encourage conversations,even when your child doesn???t seem to want to talk. No matter how your child acts, he or she still needs a parent. Nutrition and Exercise Tips Today, kids are less active and eat more junk food than ever before. Your child is starting to make choices about what to eat and how active to be. You can???t always have the final say, but you can help your child develop healthy habits. Here are some tips: ?? Help your child get at least 30-60 minutes of activity every day. The time can be broken up throughout the day. If the weather???s bad or you???re worried about safety, find supervised indoor activities. ?? Limit ???screen time?? to 1-2 hours each day. This includes time spent watching TV, playing video games, using the computer, and texting. If your child has a TV, computer, or video game console in the bedroom, consider replacing it with a music player. For many kids, dancing and singing are fun ways to get moving. ?? Limit sugary drinks. Soda, juice, and sports drinks lead to unhealthy weight gain and tooth decay. Water and low-fat or nonfat milk are best to drink. In moderation, 100% fruit juice is okay. Save soda and other sugary drinks for special occasions. ?? Have at least one family meal together each day. Busy schedules often limit time for sitting and talking. Sitting and eating together allows for family time. It also lets you see what and how your child eats. ?? Pay attention to portions. Serve portions that make sense for your kids. Let them stop eating when they???re full--don???t make them clean their plates. Also be aware that many kids??? appetites increase during puberty. If your child is still hungry after a meal, offer seconds of vegetables or fruit. ?? Serve and encourage healthy foods. Your child is making more food decisions on his or her own. All foods have a place in a balanced diet. Fruits, vegetables, lean meats, and whole grains should be eaten every day. Save less healthy foods--like maldivian fries, candy, and chips--for a special occasion.When your child does choose to eat junk food, consider making the child buy it with his or her own money. ?? Bring your child to the dentist at least twice a year for teeth cleaning and a checkup. Sleeping Tips At this age, your child needs about 10 hours of sleep each night. Here are some tips: ?? Set a bedtime and make sure your child follows it each night. ?? TV, computer, and video games can agitate a child and make it hard to calm down for the night. Turn them off the at least an hour before bed. Instead, encourage your child to read before bed. ?? If your child has a cell phone, make sure it???s turned off at night. ?? Don???t let your child go to sleep very late or sleep in on weekends. This can disrupt sleep patterns and make it harder to sleep on school nights. ?? Remind your child to brush and floss his or her teeth before bed. Safety Tips ?? When riding a bike, roller-skating, or using a scooter or skateboard, your child should wear a helmet with the strap fastened. When using roller skates, a scooter, or a skateboard, it is also a goodidea for your child to wear wrist guards, elbow pads, and knee pads. ?? In the car, all children younger than 13 should sit in the back seat. ?? If your child has a cell phone or portable music player, make sure these are used safely and responsibly. Do not allow your child to talk on the phone, text, or listen to music with headphones whilehe or she is riding a bike or walking outdoors. Remind your child to pay special attention when crossing the street. ?? Constant loud music can cause hearing damage, so monitor the volume on your child???s music player. Many players let you set a limit for how loud the volume can be turned up. Check the directions for details. ?? At this age, kids may start taking risks that could be dangerous to their health or well-being. Sometimes bad decisions stem from peer pressure. Other times, kids just don???t think ahead about whatcould happen. Teach your child the importance of making good decisions. Talk about how to recognize peer pressure and come up with strategies for coping with it. ?? Sudden changes in your child???s mood, behavior, friendships, or activities can be warning signs of problems at school or in other aspects of your child???s life. If you notice signs like these, talk to your child and to the staff at your child???s school. The healthcare provider may also be able to offer advice. Vaccinations Based on recommendations from the [employer] of Pediatric[employer], at this visit your child may receive the following vaccinations: ?? Human papillomavirus (HPV) (ages 11-12) ?? Influenza (flu) ?? Meningococcal (ages 11-12) ?? Tetanus, diphtheria, and pertussis (ages 11-12) Stay On Top of Social Media In this wired age, kids are much more ???connected?? with friends--possibly some they???ve never met in person. To teach your child how to use social media responsibly: ?? Set limits for the use of cell phones, the computer, and the Internet. Remind your child that youcan check the web browser history and cell phone logs to know how these devices are being used. Use parental controls and passwords to block access to inappropriate websites. Use privacy settings on websites so only your child???s friends can view his or her profile. ?? Explain to your child the dangers of giving out personal information online. Teach your child notto share his or her phone number, address, picture, or other personal details with online friends without your permission. ?? Make sure your child understands that things he or she ???says?? on the Internet are never private. Posts made on websites like Facebook, Do[employer], and [employer] can be seen by people they weren???t intended for. Posts can easily be misunderstood and can even cause trouble for you or your child. Supervise your child???s use of social networks, chat rooms, and email. Next checkup at: PARENT NOTES: Will treat sinus infection with Amoxicillin. If not improving to call back. Would use inhaler whilehas cold and cough- yellow zone plan ?? 3613-4794 Lizzy Bustillo, [address] [place] [address], [place] [address]. All rights reserved. This information is not intended as a substitute for professional medical care. Always follow your healthcare professional's instructions. documented in this encounter Progress Notes Christiane Stahl MD - 05/23/2012 1:19 PM CDT Saurabh Poon is an 12 year old male here for a routine health maintenance visit, accompanied by his mother. QUESTIONS/CONCERNS: Cough , mucousy for a few days now FAMILY/ SOCIAL HISTORY Child lives with: mother, father and brother Recent family changes/social stressors: none noted Family History: new pt, Family history section updated. Language(s) spoken at home: Martiniquais ENVIRONMENTAL RISK ASSESSMENT Is your child around anyone who smokes? NO Seat belt? YES Bike/sport helmet? NO (Recommended) TB exposure? NO Pets in the home? NO Guns/firearms in the home? NO Water source: [employer] water CHICKEN POX HISTORY: Previously vaccinated with 2 doses of Varivax DEVELOPMENTAL/ Behavioral Screening form: Form not indicated at this visit. VISION Right eye: 20/20 Left eye: 20/20 Both eyes: 20/20 HEARING Right Ear: 500 Hz: RESPONSE- on Level: 20 db 1000 Hz: RESPONSE- on Level: 20 db 2000 Hz: RESPONSE- on Level: 20 db 4000 Hz: RESPONSE- on Level: 20 db Left Ear: 500 Hz: RESPONSE- on Level: 20 db 1000 Hz: RESPONSE- on Level: 20 db 2000 Hz: RESPONSE- on Level: 20 db 4000 Hz: RESPONSE- on Level: 20 db REQUIRED VITAL SIGNS COMPLETED: yes BP 120/80 Pulse 64 Temp(Src) 97.8 ??F (36.6 ??C) (Oral) Resp 12 Ht 5' 7.5 (1.715 m) Wt 185 lb 11.2 oz (84.233 kg) BMI 28.66 kg/m2 99.47%ile based on CDC 2-20 Years [id number] data. 99.65%ile based on CDC 2-20 Years [id number] data. 98.24%ile based on CDC 2-20 Years BMI-for-age data. Will you need a sports physical in the next year? Sports Questionnaire: School: [employer] middle Grade: 7th Sports: baseball 1. no - Has a doctor ever denied or restricted your participation in sports for any reason or told you to give up sports? 2. Yes - Do you have an ongoing medical condition (like diabetes,asthma, anemia, infections)? 3. Yes - Are you currently taking any prescription or nonprescription (vasq-[id number]) medicines or pills? 4. Yes - Do you have allergies to medicines, pollens, foods or stinging insects? 5. no - Have you ever spent the night in a hospital? 6. no - Have you ever had surgery? 7. no - Have you ever passed [...] (for example: ECG, echocardiogram, stress test) 13. yes -Do you ever get lightheaded or feel [...] unexplained drowning, unexplained car accident or sudden syndrome)? 17. no - Does anyone in your family have hypertrophic cardiomyopathy, Marfan Syndrome, arrhythmogenic right ventricular cardiomyopathy, long QT syndrome, short QT syndrome, Brugada syndrome, or catecholaminergic polymorphic ventricular tachycardia? 18. no - Does anyone in your family have a heart problem, pacemaker, or implanted defibrillator? 19. no -Has anyone in your family had unexplained fainting, unexplained seizures, or near drowning? 20. yes - Have you ever had an injury, like a sprain, muscle or ligament tear or tendonitis, that caused you to miss a practice or game? 21. no - Have you had any broken or fractured bones, or dislocated joints? 22 no - Have you had a bone/joint injury that required x-rays, MRI, CT, surgery, injections, therapy, a brace, a cast, or crutches? 23. no - Have you ever had a stress fracture? 24. no - Have you been told [...] juvenile arthritis or connective tissue disease? 29. yes - Has a doctor ever told you that you have asthma or allergies? 30. yes - Do you cough, wheeze, have chest tightness, or have difficulty breathing during or after exercise? 31. no - Is there anyone in your family who has asthma? 32. Yes - Have you ever used an inhaler [...] Do you worry about your weight? 53. Yes - Are you trying to or has anyone recommended that you gain or lose weight? 54. no- Are you on a special diet or do you avoid certain types of foods? 55. no- Have you ever had an eating disorder? 56. no - Do you have any concerns that you would like to discuss with a doctor? Staff signature: Corrina Aleman, Medical Tube Cutter HEALTH HISTORY SINCE LAST VISIT [place] [facility] [place] Cardiac risk assessment: none except self Asthma- using Albuterol MDI about once every 3 days. Taking Singulair 5 mg daily in spring and summer. Last year was needing Albuterol TID. Coughing with mucous since last week. Has had congestion for 2 weeks. Ears plugged. Occasionally takes Benadryl when bad. Immunization History Administered Date(s) Administered ? ? DTAP (<7y) 2000, 2000, 2000, 05/09/2001, 01/31/2005 ??? HIB 2000, 2000, 2000, 05/09/2001 ??? Hepatitis A 2003, 06/18/2010 ??? Hepatitis B 2000, 2000, 2000 ??? IPV 2000, 2000, 07/18/2001, 01/31/2005 ??? MMR 01/16/2001, 01/31/2005 ??? Meningococcal (Menactra) 05/30/2012 ??? Pneumococcal (PCV 7) 2000, 2000, 01/16/2001, 05/09/2001 ??? TDAP (ADACEL AGES 11-64) 05/30/2012 ??? Varicella 01/16/2001, 06/16/2010 ALLERGIES No Known Allergies DAILY ACTIVITIES NUTRITION: good appetite, eats variety of foods, dairy/ calcium: 1% milk, meat, fruits, vegetables and drinks milk twice per day. Eats a lot and prefers prepared/ frozen foods. Not much soda. SLEEP: No concerns, sleeps well through night. Has been hot so some trouble falling asleep ELIMINATION: Normal bowel movements and Normal urination EXERCISE/ RECREATION: Organized / Team sports: Baseball; walking on treadmill 30 min per day at home ACTIVITIES: none TV/ Media: >2 hours/ day- up to 5 hours in summer, 2 hours during school year EDUCATION / EMPLOYMENT Concerns: no School: [employer] Grade: 7 Grades are ok MENTAL HEALTH Concerns: no SEXUALITY Sexual activity: no SUBSTANCE ABUSE Smoking: no Alcohol: no Drugs: no VISION: For details see above, normal HEARING: For details see above, normal ROS GENERAL: See health history, nutrition and daily activities SKIN: No rash, hives or significant lesions HEENT: Hearing/vision: see above. No eye redness/discharge, nasal congestion, sneezing, snoring RESP: See above CV: No cyanosis, palpitations, syncope GI: See nutrition and elimination : See elimination MS: No swelling, arthralgia, weakness, gait problem NEURO: No headaches PSYCH: See development and behavior, or mental health EXAM GENERAL: Active, alert, in no acute distress. SKIN: Clear. No significant rash, abnormal pigmentation or lesions. Some striae on lower back. HEAD: Normocephalic EYES: Sharp optic discs. Pupils equal, round, reactive, Extraocular muscles intact. Normal conjunctivae. EARS: Normal canals. Right tympanic membrane with thick mucoid effusion, left tympanic membrane is normal; marion and translucent. NOSE: Thicker congestion. MOUTH/THROAT: Clear. No oral lesions. Teeth without [...] -M: Normal male external genitalia. Silviano stage 3, both testes descended, no hernia. ANTICIPATORY GUIDANCE The following topics were discussed: SOCIAL/ FAMILY: Increased responsibility TV/ media School/ homework NUTRITION: Healthy food choices Dietary fat Family meals Calcium Weight management HEALTH / SAFETY: Adequate sleep/ exercise Dental care Drugs, ETOH, smoking Seat belts Swimming/ water safety Bike/ sport helmets SEXUALITY: Body changes with puberty ASSESSMENT 1. Well teen with normal development 2. Intermittent asthma with exacerbation; ACT score 24 3. Sinusitis with right middle ear effusion 4. Seasonal allergic rhinitis 5. Overweight PLAN 98.24%ile based on CDC 2-20 Years BMI-for-age data. Obesity Action Plan: Exercise Counseling Performed Nutrition Counseling Performed 5210 Nutrition Counseling Performed 5210 5. 5 servings of fruits or vegetables per day 2. Less than 2 hours of television per day 1. At least 1 hour of active play per day 0. 0 sugary drinks (juice, pop, punch, sports drinks) Immunizations: See orders in EpicCare. Counseling provided regarding the benefits and risks related to the vaccines ordered today. I reviewed the signs and symptoms of adverse effects and when to seek medical care if they should arise. Given Shirley Cadet. Consider HPV in future. Would recommend a fasting lipid panel, glucose due to his weight. [facility] sports clearance letter written. AAP written. Increase Singulair to 10 mg. Amoxicillin for sinus infection. See other orders in EpicCare Referrals/Ongoing Specialty care: No Dental visit recommended: Yes and Continue care every 6 months Lifestyle, health, and safety counseling Discussed dental care and mouthguard use Discussed Lead and TB exposure--(Testing not indicated) RTC: 14 year [facility] visit documented in this encounter Nursing Notes 05/30/2012 2:00 PM CDT >> CORRINA ALEMAN Wed May 30, 2012 2:26 PM Patient presents with: Well Child - needs ALL, history form and possible sports px Pre Visit Planning - Done Initial BP 120/80 Pulse 64 Temp(Src) 97.8 ??F (36.6 ??C) (Oral) Resp 12 Ht 5' 7.5 (1.715 m) Wt 185 lb 11.2 oz (84.233 kg) BMI 28.66 kg/m2 Estimated Body mass index is 28.66 kg/(m^2) as calculated from the following: Height as of this encounter: 5' 7.5(1.715 m). Weight as of this encounter: 185 lb 11.2 oz(84.233 kg).. BP completed using cuff size: blayne Aleman Medical Tube Cutter documented in this encounter Plan of Treatment Not on filedocumented as of this encounter Procedures Procedure Name Priority Date/Time Associated Diagnosis Comme nts ASTHMA ACTION PLAN Routine 05/30/2012 2:54 PM Mild persistent asthma CDT with exacerbation HC SCREENING TEST, Routine 05/30/2012 2:54 PM Routine o r child PURE TONE, AIR ONLY CDT health check documented in this encounter Visit Diagnoses Diagnosis Routine or child health check - P rimary Mild persistent asthma with exacerbation Unspecified asthma, with exacerbation Sinusitis Unspecified sinusitis (chronic) OME (otitis media with effusion) Nonsuppurative otitis media, not specifi ed as acute or chronic Overweigth Obesity, unspecified Seasonal allergic rhinitis Allergic rhinitis, cause unspecified documented in this encounter Care Teams Power And Recovery Shift Engineer Relationship Specialty Start Date End Date Christiane Stahl MD PCP - General Pediatrics 06/01/12 [id number] [place] [address] documented as of this encounter
--- OUTSIDE RECORDS SUMMARY | 2022-07-30 13:51 | XMS_ITS | Encounter Summary ---
:2000 Author Organization [facility] Address [address] [place] [id number] Care Team Providers Name Role Phone Christiane Stahl MD Primary Care Provider [phone] Reason for Visit Auth/Cert - Closed Specialty Diagnoses / Procedures Referred By Contact Refer red To Contact Surgery Diagnoses Labral tear Rh Periop Services Procedures ARTHROSCOPY SHOULDER SUPERIOR LABRUM ANTERIOR TO POSTERIOR REPAIR [address] [place], [place] [address] Phone: Fax: Referral ID Status Reason Start Date Expiration Date Visits Requ ested Visits Authorized [id number] Closed 1 1 Encounter Details Date Type Department Care Team Description 06/25/2014 Surgery [facility] Campbell Hartley MD Open Bankart repair [place] [facility] [place] [address] [facility] (two 1.8 anchors were [address] [employer] [address] used) and inferior [place], [place] [address] capsular shift [id number] [phone] Surgery Details Date/Time Status Location OR Service Patient Case Case Traum a Class Class Type Case? 06/25/14 12:20 Posted [facility] OR OR 10 Orthopedics Same Day PM Surgery Panel 1 Procedure LRB Anes Op Region Wound Class Commen ts Open Bankart repair (two General Shoulder I-Clean Open Bankart repair (two 1.8 anchors were used) and 1.8 anchors were used) inferior capsular shift a nd inferior capsular shift Surgeon Surgeon Role Service Panel Campbell Hartley MD Primary Orthopedics 1 Darin Pike PA-C Assisting Easement Worker Authorizat ion 1 Special Needs 5' 9.84/191 lb 14.4 oz per H&P documented in this encounter Social History Tobacco Use Types Packs/Day Years Used Date Smoking Tobacco: Never Smokeless Tobacco: Never Alcohol Use Standard Drinks/Week Comments No 0 (1 standard drink = 0.6 oz pure alcoho l) Sex Assigned at Date Recorded Not on file documented as of this encounter Last Filed Vital Signs Vital Sign Reading Time Taken Comments Blood Pressure 139/64 06/25/2014 5:00 PM CDT Pulse - - Temperature 37.6 ??C (99.7 ??F) 06/25/2014 3:27 PM CDT Respiratory Rate 20 06/25/2014 5:00 PM CDT Oxygen Saturation 96% 06/25/2014 5:00 PM CDT Inhaled Oxygen Concentration - - Weight 87.6 kg (193 lb 1.6 oz) 06/25/2014 11:06 AM CDT Height 180.3 cm (5' 10.98) 06/25/2014 11:06 AM CDT Body Mass Index 26.94 06/25/2014 11:06 AM CDT Body Mass Index Percentile 95.77 % 06/25/2014 11:06 AM C DT Growth Chart: [facility] (Boys, 2-20 Years) documented in this encounter Discharge Instructions Discharge InstructionsShawanda Simmons RN - 06/25/2014 2:[address] CAMPBELL [facility] M[facility] CLINIC PHONE NUMBER: [phone] TOOK ONE PAIN PILL AT 3 PM NEXT POSSIBLE IBUPROFEN AFTER 7 PM SHOULDER SURGERY DISCHARGE INSTRUCTIONS Following these home instructions will aid the healing process, prevent complications and increase your comfort following your surgery. 1. Keep the dressing clean and dry until the time that your physician has instructed you to remove it. 2. Ice the shoulder over the next 24 - 48 hours and then as needed for comfort. 3. Wear the sling until the day after surgery and then follow your physician???s recommendations regarding use of the sling. 4. Remain quiet and restful the day of surgery. Resume normal activities gradually over the next dayor so as advised by your physician. 5. Exercise your arm only as instructed by your physician. Please notify your doctor of any of the followin. Fever greater than 101 degrees 2. Excessive drainage or bleeding 3. Blue discoloration of the fingers or they are cold to the touch 4. Severe pain not relieved by your pain medication 5. Drainage that is green, yellow, thick white, or has a bad odor GENERAL ANESTHESIA OR SEDATION CHILD DISCHARGE INSTRUCTIONS YOUR CHILD SHOULD REST AND AVOID STRENUOUS PLAY FOR THE NEXT 24 HOURS. MAKE ARRANGEMENTS TO HAVE AN ADULT STAY WITH HIM/HER FOR 24 HOURS AFTER DISCHARGE. YOUR CHILD MAY FEEL DIZZY OR SLEEPY. HE OR SHE SHOULD AVOID ACTIVITIES THAT REQUIRE BALANCE (RIDING A BIKE, CLIMBING STAIRS, SKATING) FOR THE NEXT 24 HOURS. YOU MAY OFFER YOUR CHILD CLEAR LIQUIDS (APPLE JUICE, ERNESTINA SP, 7-UP, GATORADE, BROTH, ETC.) AND PROGRESS TO A REGULAR DIET IF NO NAUSEA (FEELS SICK TO THE STOMACH) OR VOMITING (THROWS UP) EXISTS. YOUR CHILD MAY HAVE A DRY MOUTH, SORE THROAT, MUSCLE ACHES OR NIGHTMARES. THESE SHOULD GO AWAY WITHIN 24 HOURS. CALL YOUR DOCTOR FOR ANY OF THE FOLLOWING: SIGNS OF INFECTION (FEVER, GROWING TENDERNESS AT THE SURGERY SITE, A LARGE AMOUNT OF DRAINAGE OR BLEEDING, SEVERE PAIN, FOUL-SMELLING DRAINAGE, REDNESS, SWELLING). IT HAS BEEN OVER 8 TO 10 HOURS SINCE SURGERY AND YOUR CHILD IS STILL NOT ABLE TO URINATE (PASS WATER) OR IS COMPLAINING ABOUT NOT BEING ABLE TO URINATE. documented in this encounter Medications at Time of Discharge Medication Sig Dispensed Refills Start Date End Date albuterol (PROAIR HFA, Inhale 2 puffs into 1 Inhaler 1 05/1607/04/2016 PROVENTIL HFA, VENTOLIN the lungs every 4 HFA) 108 (90 BASE) hours as needed for MCG/ACT shortness of breath / inhalerIndications: Mild dyspnea persistent asthma with exacerbation HYDROcodone-acetaminophe Take 1-2 tablets by 36 tablet 0 06/12/2015 n (NORCO) 5-325 MG per mouth every 4 hours tabletIndications: as needed for other Post-op pain (Moderate to Severe Pain) montelukast (SINGULAIR) Take 1 tablet by 90 tablet 3 201103/28/2016 10 MG tabletIndications: mouth At Bedtime. Mild persistent asthma with exacerbation documented as of this encounter H&P Notes Kavya Schumacher - 06/23/2014 6:34 PM CDT This note is for the purpose of making the H&P performed in clinic within the last 30 days available in the hospital surgical encounter. Source Note - Christiane Stahl MD - 06/20/2014 2:38 PM CDT PREOPERATIVE EXAMINATION Date of exam: June 20, 2014 Date of surgery: June 25, 2014 Surgeon: Dr. Campbell Hartley Primary physician: Christiane Stahl Hospital/Surgical Facility: [facility] Procedure: L shoulder labral repair Expected anesthesia [...] as Jacob not certain. June 20, 2014 CHRISTIANE STAHL (electronically signed once this encounter has been closed--see header) [address] [address] This report is available electronically at [facility]. 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 PROCEDURE: Open Bankart repair (two Linvatec 1.8 Y-knot anchors were used) and inferior capsular shift. SURGEON: Campbell Hartley MD WIND PLANT MANAGER: Max Pike PA-C. Assistance from the CEDRIC was essential for this procedure for satisfactory protection of the axillary nerve and manipulation of the arm throughout the process. In addition, administrative assistant office manager was necessary for satisfactory exposure of the capsule and manipulation of the capsule, once the capsule was divided and subsequently repaired with reefing. Assistance was also needed for exposure of the deltoid and at the end of procedure, closure of the deltoid as well. INDICATIONS FOR THE PROCEDURE: Saurabh Poon is a 14-year-old male who sustained an injury to the shoulder from playing football about a year ago. Subsequently, he had 3 additional episodes of subluxation/dislocation although he did not require reduction of the dislocated shoulder in an emergency room setting. Preoperative MRI scan showed presence of anterior labral tear along with Hill- Sachs lesion. This was felt to be consistent with a prior dislocation of the shoulder. In addition, he does have generalized soft tissue laxity. We felt that given his age and because of his physical make up, he is under high chance for recurrent dislocation and developing future arthritis. The nature of the problem and options were thoroughly discussed beforehand and we felt that he would benefit from repair of thelabrum and also capsular tightening to provide better stability with that shoulder. Potential complications including excellent nerve compromise and infection, recurrent dislocation were thoroughly discussed. DESCRIPTION OF THE PROCEDURE: With satisfactory general anesthesia in modified beach chair position,left shoulder was prepped and draped in a routine sterile fashion. Anterior incision was made extending from the axillary fold proximally. With a blunt dissection through subcutaneous tissue, deltopectoral interval was identified. The cephalic vein was not identified;however, the interval between the pectoralis and the deltoid was rather well defined. With retraction of the deltoid laterally, the clavipectoral fascia was noted which was then divided. The conjoined tendon was then retracted medially exposing the anterior aspect of the shoulder. Subscapularis and anterior capsule complex was then divided just a little medial to the insertion site along the humeral head. While the arm was externally rotated, the capsule was detached all the waydown to the 6 o'clock position. This then allowed exposure of the anterior labrum. As expected, he had anterior labral tear from 6:30-11:30 position. Biceps tendon anchor was intact. Minimal rim fracture of the anterior labrum was anterior glenoid was noted. This was felt to be rather minimum. The anterior neck of the glenoid was then debrided down to bleeding bone. Two anchors were then used. Each anchor had 4 sutures. The conjoint the tissue of the anterior capsule and subscapularis was then divided so that we can place sutures on the capsule itself. When 4 horizontal mattress sutures were placed, we in essence repaired the entire anterior labrum quite nicely. The anterior labrum and anterior capsule was then divided into 2 leaves. The inferior leaflet was then advanced superiorly and laterally while the arm was held at 30 degrees of external rotation. The capsular structure was repaired while the inferior leaflet was advanced. Subsequently, the superior leaflet was then brought down in [id number] fashion and repair was done with nonabsorbable 0 Ethibond sutures in non running fashion. The repair was noted to be quite satisfactory. His range of motion was limited to 30-35 degrees of external rotation, once inferior capsular shift was completed. The deltopectoral interval was reapproximated. The rest of the wound was closed in a routine fashionwith subcutaneous tissue closure with 3-0 Vicryl and staple closure for the skin. Soft dressing was applied in a routine fashion over the wound and a sling was applied with the strap going around the body so that his arm is not externally rotated. No intraoperative complications noted. Needle count and sponge count were correct at the end of the case. CAMPBELL HARTLEY MD MT: #[id number] Name: SAURABH POON Account: [id number] : 2000 Procedure Date: 06/25/2014 Document: [id number] Brief Op Note - Campbell Hartley MD - 06/25/2014 2:25 PM CDT [facility] Orthopedics Brief Operative Note Pre-operative diagnosis: Labral tear Post-operative diagnosis left shoulder chronic instability with Bankart lesion Procedure: Procedure(s): ARTHROTOMY SHOULDER Surgeon: Campbell Hartley MD, MD Assistants(s): TRIPP Barriga Anesthesia: General Estimated blood loss: * No blood loss amount entered * Drains: None Specimens: None Implants: See the dictated op note Complications: None documented in this encounter Plan of Treatment Not on filedocumented as of this encounter Procedures Procedure Name Priority Date/Time Associated Diagnosis Comme nts ARTHROTOMY, SHOULDER 06/25/2014 12:28 PM left shoulder chronic CDT instability with Bankart lesion Special Needs 5' 9.84/191 lb 14.4 oz per H&P documented in this encounter Visit Diagnoses Not on filedocumented in this encounter Administered Medications Inactive Administered Medications - up to 3 most recent administrations Medication Order MAR Action Action Date Dose Rate Site celecoxib (celeBREX) capsule 400 Given 06/25/2014 11:54 AM CDT 4 00 mg mg 400 mg, Oral, PRE-OP/PRE-PROCEDURE, Starting on Mon06/25/14 at 1123, For 1 dose, Pre-procedure HYDROcodone-acetaminophen (NORCO) 5-325 MG Given 06/25 2:47 PM CDT 1 tablet per tablet 1-2 tablet 1-2 tablet, Oral, ONCE PRN, moderate to severe pain, Starting on Mon06/25/14 at 1444, For 1 dose, One time prior to discharge. Maximum acetaminophen dose from all sources= 75 mg/kg/day not to exceed 4 grams, Post-procedure HYDROmorphone (PF) (DILAUDID) injection Given 06/25/2014 2:46 PM CDT 0.2 mg 0.3-0.5 mg 0.3-0.5 mg, Intravenous, EVERY 10 MIN PRN, moderate to severe pain, acute pain.?May administer if RR is > 10 , Starting on Mon06/25/14 at 1416, If fentanyl is also ordered, use HYDROmorphone if pain control insufficient with fentanyl or a longer acting agent is needed. Max cumulative dose = 2 mg , PACU/Phase II lidocaine 1% with Given 06/25/2014 2:10 PM 30 mLs Operative Site/Surgical EPINEPHrine 1:100,000 1 CDT S ite %-1:[id number] injection PRN, Starting on Mon06/25/14 at 1426, Intra-procedure meperidine (DEMEROL) injection 12.5 mg Given 06/25/2014 2:56 PM CDT 12.5 mg 12.5 mg, Intravenous, EVERY 15 MIN PRN, post anesthesia shivering, Starting on Mon06/25/14 at 1416, For 2 doses, PACU/Phase II Given 06/25/2014 2:30 PM CDT 12.5 mg oxyCODONE (OxyCONTIN) 12 hr tablet 10 mg Given 06/25/2014 11:54 AM CDT 10 mg 10 mg, Oral, PRE-OP/PRE-PROCEDURE, Starting on Mon06/25/14 at 1123, For 1 dose, Pre-procedure documented in this encounter Active and Recently Administered Medications Times are shown in CDT. Scheduled Medication Order 06/23/2014 06/24/2014 06/25/2014 ceFAZolin (ANCEF) IVPB 2 g (pre-mix) (COMPLETED) 1238 (Given - Provider: Nav Urbano APRN CRNA) Routine, 2 g, Intravenous, PRE-OP/PRE-MS OCEDURE, Starting on Mon06/25/14 at 1123, For 1 dose, Give first dose within 1 hour PRIOR to incision. If patient weight is greater than or equal to 120 kg change dose to 3 g., Indications: Perioperative Pharmacoprophylaxis, P re-procedure celecoxib (celeBREX) capsule 400 mg (COMPLETED) 1154 (Given - Provider: Janet Johnson RN) 400 mg, Oral, PRE-OP/PRE-PROCEDURE, Star ting on Mon06/25/14 at 1123, For 1 dose, Pre-procedure oxyCODONE (OxyCONTIN) 12 hr tablet 10 mg (COMPLETED) 1154 (Given - Provider: Janet Johnson RN) 10 mg, Oral, PRE-OP/PRE-PROCEDURE, Start ing on Mon06/25/14 at 1123, For 1 dose, Pre-procedure Continuous Medication Order 06/23/2014 06/24/2014 06/25/2014 lactated ringers infusion (CANCELED) 1218 (New Bag - Provider: Nav Urbano APRN CRNA)1310 (New Bag - Provider: Nav Urbano APRN CRNA)1415 (Anesthesia Volume Adjustment - Provider: Nav Urbano APRN CRNA) at 75-100 mL/hr, Intravenous, CONTINUOUS , UNLESS otherwise indicated., Pre- procedure, Starting on Mon06/25/14 at 1145, Until Mon06/25/14 at 1417 PRN Medication Order 06/23/2014 06/24/2014 06/25/2014 HYDROcodone-acetaminophen (NORCO) 5-325 MG per tablet 1-2 tablet (COMPLETED) 1447 (Given - Provider: Shawanda Simmons RN) 1-2 tablet, Oral, ONCE PRN, moderate to severe pain, Starting on Mon06/25/14 at 1444, For 1 dose, One time prior to discharge. Maximum acetaminophen dose from all sources= 75 mg/kg/day not to exceed 4 grams, Post-procedure HYDROmorphone (PF) (DILAUDID) injection 0.3-0.5 mg (CANCELED) 1446 (Given - Provider: Shawanda Simmons RN) 0.3-0.5 mg, Intravenous, EVERY 10 MIN MS N, moderate to severe pain, acute pain.?May administer if RR is > 10 , Starting on Mon06/25/14 at 1416, If fentanyl is also ordered, use HYDROmorphone if pa in control insufficient with fentanyl or a longer acting agent is needed. Max cumulative dose = 2 mg , PACU/Phase II lidocaine 1% with EPINEPHrine 1:100,000 1 %-[id number] injection ( CANCELED) 1410 (Given - Provider: Campbell Hartley MD) PRN, Starting on Mon06/25/14 at 1426, Intra-procedure meperidine (DEMEROL) injection 12.5 mg (COMPLETED) 1430 (Given - Provider: Shawanda Simmons RN)1456 (Given - Provider: Shawanda Simmnos RN) 12.5 mg, Intravenous, EVERY 15 MIN PRN, post anesthesia shivering, Starting on Mon06/25/14 at 1416, For 2 doses, PACU/Phase II documented in this encounter Care Teams Feed Weigher Relationship Specialty Start Date End Date Christiane Stahl MD PCP - General Pediatrics 06/01/12 [address] [address] [id number] documented as of this encounter
--- OUTSIDE RECORDS SUMMARY | 2022-07-30 13:51 | XMS_ITS | Encounter Summary ---
:2000 Author Organization [facility] Address [address] [facility] [place] [address] Care Team Providers Name Role Phone Christiane Stahl MD Primary Care Provider [phone] Reason for Visit Reason Comments Erroneous encounter-disregard Encounter Details Date Type Department Care Team Description 01/01/2013 Office Visit [facility] Christiane Stahl [facility] Jack Miller MD ENCOUNTER--DISREGARD [address] [address] [address] (Primary Dx) [place] [id number] [phone] Social History Tobacco Use Types Packs/Day Years Used Date Smoking Tobacco: Never Smokeless Tobacco: Never Sex Assigned at Date Recorded Not on file documented as of this encounter Patient Instructions Patient InstructionsLatia Ceballos - 01/01/2013 8:29 AM CDT documented in this encounter Progress Notes Christiane Stahl MD - 01/04/2013 7:32 AM CDT Cancelled. Appt not needed. documented in this encounter Plan of Treatment Not on filedocumented as of this encounter Visit Diagnoses Diagnosis ERRONEOUS ENCOUNTER--DISREGARD - Primary documented in this encounter Care Teams Bin Tripper Operator Relationship Specialty Start Date End Date Christiane Stahl MD PCP - General Pediatrics 06/01/12 [id number] [place] [address] documented as of this encounter
--- OUTSIDE RECORDS SUMMARY | 2022-07-30 13:51 | XMS_ITS | Encounter Summary ---
:2000 Author Organization [place] Address [facility] [place] [address] Care Team Providers Name Role Phone Christiane Stahl MD Primary Care Provider [phone] Reason for Visit (Routine) - Closed Specialty Diagnoses / Procedures Referred By Contact Refer red To Contact Radiology / Radiology. Diagnoses R#NA,Epic Order Sh Mri Procedures MR SHOULDER LEFT [address] [place] [address] Phone: Referral ID Status Reason Start Date Expiration Date Visits Requ ested Visits Authorized [id number] Closed 06/10/2014 06/10/2015 1 1 Encounter Details Date Type Department Care Team Description 06/12/2014 Hospital Encounter [facility] Campbell Hartley, Pain in joint, [facility] Imaging shoulder region, [address] [address] [address] [place] [phone] [place], [place] [phone] [id number] Social History Tobacco Use Types Packs/Day Years Used Date Smoking Tobacco: Never Smokeless Tobacco: Never Sex Assigned at Date Recorded Not on file documented as of this encounter Last Filed Vital Signs Vital Sign Reading Time Taken Comments Blood Pressure - - Pulse - - Temperature - - Respiratory Rate - - Oxygen Saturation - - Inhaled Oxygen Concentration - - Weight 86.2 kg (190 lb) 06/12/2014 10:21 AM CDT Height - - Body Mass Index 27.2 06/11/2014 1:40 PM CDT Body Mass Index Percentile 96.10 % 06/12/2014 10:21 AM C DT Growth Chart: [facility] (Boys, 2-20 Years) documented in this encounter Medications at Time [...] Name Priority Date/Time Associated Diagnosis Comme nts MR SHOULDER LEFT W Routine 06/12/2014 10:48 AM Pain in joint, Results for this CONTRAST CDT shoulder region, procedure a re in left the results section. documented in this encounter Results MR Shoulder Left w Contrast (06/12/2014 10:48 AM CDT) Anatomical Region Laterality Modality Left Shoulder, SUBRAD MR MSK, UMP MR MSK Magnetic Resonance Specimen (Source) Anatomical Location Collection Method / Collectio n Time Received Time / Laterality Volume Impressions 06/12/2014 11:56 AM CDT IMPRESSION: Findings are consistent with a previous anterior glenohumeral joint dislocation. This inc ludes a tear of the anterior-inferior labrum (soft tissue Ba nkart deformity) as well as a Hill-Sachs lesion of the humeral head. GERALDINE NIEVES MD Narrative 06/12/2014 11:56 AM CDT MR ARTHROGRAM LEFT SHOULDER ??06/12/2014 10:48 AM HISTORY: Left shoulder pain following an injury. History of dislocation. Evaluate for labral tear. COMPARISON: None. TECHNIQUE: Following the injection of ga dolinium contrast into the left glenohumeral joint, coronal T1 fat suppressed and T2, sagittal T1 fat suppressed and T2 fat suppressed, an d transverse T1 fat suppressed and gradient echo images were obtained t hrough the left shoulder. FINDINGS: Osseous acromion outlet: There is a type I configuration of the acromion with no significant lateral or anterior downsloping. There are no degenerative changes of the acrom ioclavicular joint. The outlet is widely patent. Rotator cuff: The supraspinatus, infrasp inatus, subscapularis, and teres minor tendons and visualized muscl es are normal. Labrum: There is marked irregularity of the inferior aspect of the anterior labrum with contrast extending into the labral tissue. There is no definite stripping of the adjacent periosteum. No displaced labral fragment is seen. The remaining l abral tissue is unremarkable. Biceps tendon: The biceps tendon is in t he bicipital groove. It is intact and demonstrates normal signal. Osseous structures and cartilaginous radha faces: There is a small area of subcortical irregularity in the poste rior lateral aspect of the humeral head apex with mild underlying m arrow edema. No distinct fracture line is demonstrated. No osseou s lesion or other abnormal marrow signal intensity is identified. T he cartilage surfaces are well preserved. Additional findings: The glenohumeral dat int is well distended with contrast. The adjacent soft tissues are unremarkable. Procedure Note Geraldine Nieves MD - 06/12/2014Fo rmatting of this note might be different from the original. MR ARTHROGRAM LEFT SHOULDER 06/12/2014 10 :48 AM HISTORY: Left shoulder pain following an injury. History of dislocation. Evaluate for labral tear. COMPARISON: None. TECHNIQUE: Following the injection of ga dolinium contrast into the left glenohumeral joint, coronal T1 fat suppressed and T2, sagittal T1 fat suppressed and T2 fat suppressed, an d transverse T1 fat suppressed and gradient echo images were obtained t hrough the left shoulder. FINDINGS: Osseous acromion outlet: There is a type I configuration of the acromion with no significant lateral or anterior downsloping. There are no degenerative changes of the acrom ioclavicular joint. The outlet is widely patent. Rotator cuff: The supraspinatus, infrasp inatus, subscapularis, and teres minor tendons and visualized muscl es are normal. Labrum: There is marked irregularity of the inferior aspect of the anterior labrum with contrast extending into the labral tissue. There is no definite stripping of the adjacent periosteum. No displaced labral fragment is seen. The remaining l abral tissue is unremarkable. Biceps tendon: The biceps tendon is in t he bicipital groove. It is intact and demonstrates normal signal. Osseous structures and cartilaginous radha faces: There is a small area of subcortical irregularity in the poste rior lateral aspect of the humeral head apex with mild underlying m arrow edema. No distinct fracture line is demonstrated. No osseou s lesion or other abnormal marrow signal intensity is identified. T he cartilage surfaces are well preserved. Additional findings: The glenohumeral dat int is well distended with contrast. The adjacent soft tissues are unremarkable. IMPRESSION IMPRESSION: Findings are consistent with a previous anterior glenohumeral joint dislocation. This inc ludes a tear of the anterior-inferior labrum (soft tissue Ba nkart deformity) as well as a Hill-Sachs lesion of the humeral head. GERALDINE NIEVES MD Campbell Hartley MD IMG MRI ORDERABLES documented in this encounter Visit Diagnoses Diagnosis Pain in joint, shoulder region, left documented in this encounter Care Teams Direct Response Consultant Relationship Specialty Start Date End Date Christiane Stahl MD PCP - General Pediatrics 06/01/12 [address] [place] [address] documented as of this encounter
--- OUTSIDE RECORDS SUMMARY | 2022-07-30 13:51 | XMS_ITS | Encounter Summary ---
:2000 Author Organization [facility] Address [address] [place] [address] Care Team Providers Name Role Phone Christiane Stahl MD Primary Care Provider [phone] Reason for Visit Reason Onset Date Comments Other 06/09/2014 MRI concerns Encounter Details Date Type Department Care Team Description 06/09/2014 Telephone [facility] Campbell Hartley MD Other (MRI concerns) [facility] [place] [address] [facility] [address] [place] [address] [address] [place] [address] [phone] Social History Tobacco Use Types Packs/Day Years Used Date Smoking Tobacco: Never Smokeless Tobacco: Never Sex Assigned at Date Recorded Not on file documented as of this encounter Miscellaneous Notes Telephone Encounter - Debora Montero RN - 06/13/2014 10:58 AM CDT Patient seen in clinic 06/13/14. Anna Montero RN Telephone Encounter - Tonya Narayan RN - 06/10/2014 1:57 PM CDT Pt's mother, Asri, LVM requesting call back regarding MRI. LVM requesting return call to clinic. Tonya Narayan, RN Telephone Encounter - Debora Montero RN - 06/09/2014 3:29 PM CDT Received voicemail from father, Gaurav, stating he needs a procedure code for MRI that was ordered by Dr. Hartley in order to get it pre-authorized. Phone call to father and recommended he contact [facility] Radiology for code and number given. Suggested he could get code when calls to make appointment.He asks if patient will have anesthesia for the MRI and what all is involved. We inadvertantly got cut off. Phone call back to father and left detailed message to contact Radiology regarding the details of the procedure. Did let him know that contrast would be injected to help with imaging. Also informed general anesthetic not used, and oral sedative used in patients that are claustrophobic. Asked that he call back for further concerns. Anna Montero RN documented in this encounter Plan of Treatment Not on filedocumented as of this encounter Visit Diagnoses Not on filedocumented in this encounter Care Teams Script Writer Relationship Specialty Start Date End Date Christiane Stahl MD PCP - General Pediatrics 06/01/12 [address] [place] [address] documented as of this encounter
--- OUTSIDE RECORDS SUMMARY | 2022-07-30 13:51 | XMS_ITS | Encounter Summary ---
:2000 Author Organization [facility] Address [address] [place] [address]. [place] [address] Care Team Providers Name Role Phone Christiane Stahl MD Primary Care Provider [phone] Reason for Visit Reason Onset Date Comments Symptoms 06/03/2014 Lt shoulder issues Encounter Details Date Type Department Care Team Description 06/03/2014 Telephone [facility] Christiane Stahl Symptom s (Lt shoulder Clinic Oxana Miller MD issues) [address] [address] [facility] [place] [address] [phone] Social History Tobacco Use Types Packs/Day Years Used Date Smoking Tobacco: Never Smokeless Tobacco: Never Sex Assigned at Date Recorded Not on file documented as of this encounter Miscellaneous Notes Telephone Encounter - Muriel Cotsa, RN - 06/03/2014 12:46 PM CDT Patient and mother called concerning patient's Lt shoulder. Plays football and has issues with Lt shoulder popping in and out for about 6 months. Given phone number to [facility] [place]. Muriel Costa RN documented in this encounter Plan of Treatment Not on filedocumented as of this encounter Visit Diagnoses Not on filedocumented in this encounter Care Teams Resource Development Director Relationship Specialty Start Date End Date Christiane Stahl MD PCP - General Pediatrics 06/01/12 [address] [address] [id number] documented as of this encounter
--- OUTSIDE RECORDS SUMMARY | 2022-07-30 13:51 | XMS_ITS | Encounter Summary ---
:2000 Author Organization [place] Address [address] [place] [address] Care Team Providers Name Role Phone Christiane Stahl MD Primary Care Provider [phone] Encounter Details Date Type Department Care Team Description 06/24/2014 Therapy Visit [facility] Eveline Frank P T Pain in joint, shoulder region, left (Pr imary Dx); Rehabilitation Services [facility] [place] [place] Shoulder weakness [address] [address] [address] [place], [place] [address] Social History Tobacco Use Types Packs/Day Years Used Date Smoking Tobacco: Never Smokeless Tobacco: Never Alcohol Use Standard Drinks/Week Comments No 0 (1 standard drink = 0.6 oz pure alcoho l) Sex Assigned at Date Recorded Not on file documented as of this encounter Progress Notes Eveline Frank, PT - 06/24/2014 9:47 AM CDT Subjective: HPI Comments: Pt is a non-smoking 14 y/o male who c/o improving, intermittent 3/10 L shoulder pain s/p labral tear during football 3 weeks prior. MRI with FSOC, surgery scheduled for 06/26/14. No PMH. Current complaints WORSE with reach above or lay on it; BETTER with time and rest. Pt and mom reports general health is good. Pt is a student. 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 Objective: System Shoulder Evaluation: ROM: AROM: normal PROM: : ER _concordant L shoulder pain. Strength: : 4/5 B flexion, Abd, 5/5 b ER without concordant pains. General ROS Assessment/Plan: Patient is a 14 year old male with left side shoulder complaints. Patient has the following significant findings with corresponding treatment plan. Diagnosis 1: Labral tear Pain - self management, education and home program Decreased ROM/flexibility - manual therapy, therapeutic exercise, therapeutic activity and home program Decreased joint mobility - therapeutic exercise, therapeutic activity and home program Decreased strength - therapeutic exercise, therapeutic activities and home program Impaired posture - neuro re-education, therapeutic activities and home program Previous and current functional limitations: (See Goal Flow Sheet for this information) Short term and long term care pharmacist goals: (See Goal Flow Sheet for this information) Communication ability: Patient appears to be able to clearly communicate and understand verbal and written communication and follow directions correctly. Treatment Explanation - The following has been discussed with the patient: RX ordered/plan of care Anticipated outcomes Possible risks and side effects This patient would benefit from PT intervention to resume normal activities. Rehab potential is good. Frequency: 1 X week, once daily Duration: for 2 months Discharge Plan: Independent in home treatment program. Reach maximal therapeutic benefit. Please refer to the daily flowsheet for treatment today, total treatment time and time spent performing 1:1 timed codes. Kary Rogers - 06/24/2014 8:43 AM CDT Subjective: Pertinent medical history includes: None. Medical allergies: no. Other surgeries include: None reported. Current medications: None as reported by patient. Current occupation is student. Barriers include: None as reported by patient. Red flags: None as reported by patient. Objective: System Physical Exam General ROS Assessment/Plan: Please refer to the daily flowsheet for treatment today, total treatment time and time spent performing 1:1 timed codes. documented in this encounter Plan of Treatment Not on filedocumented as of this encounter Procedures Procedure Name Priority Date/Time Associated Diagnosis Comme nts [facility] THERAPEUTIC Routine 06/24/2014 10:01 AM Pain in joint, ACTIVITIES CDT shoulder region, left Shoulder weakness [facility] THERAPEUTIC Routine 06/24/2014 10:01 AM Pain in joint, EXERCISES CDT shoulder region, left Shoulder weakness documented in this encounter Visit Diagnoses Diagnosis Pain in joint, shoulder region, left - P rimary Shoulder weakness Other joint derangement, not elsewhere c lassified, shoulder region documented in this encounter Care Teams Cleaner Laboratory Equipment Relationship Specialty Start Date End Date Christiane Stahl MD PCP - General Pediatrics 06/01/12 [address] [place] [address] documented as of this encounter
--- OUTSIDE RECORDS SUMMARY | 2022-07-30 13:51 | XMS_ITS | Encounter Summary ---
:2000 Author Organization [facility] Address [address] [place] [address] Care Team Providers Name Role Phone Christiane Stahl MD Primary Care Provider [phone] Reason for Visit [facility] - Closed Specialty Diagnoses / Procedures Referred By Contact Refer red To Contact Diagnoses Labral tear of shoulder, left, [place] [address] [facility] [address] [place] [address] Referral ID Status Reason Start Date Expiration Date Visits Requ ested Visits Authorized [id number] Closed 06/17/2014 12/14/2014 1 1 Encounter Details Date Type Department Care Team Description 09/02/2014 Therapy Visit [facility] [place], Pain in joint, shoulder region, left (Primary Dx); Rehabilitation Services [facility] Other specified aftercare following surg jovany; [facility] Sprain and strain of other specified sit es of shoulder and upper arm [address] [place] [address] [address] [place], [place] [phone] [id number] Social History Tobacco Use Types Packs/Day Years Used Date Smoking Tobacco: Never Smokeless Tobacco: Never Alcohol Use Standard Drinks/Week Comments No 0 (1 standard drink = 0.6 oz pure alcoho l) Sex Assigned at Date Recorded Not on file documented as of this encounter Plan of Treatment Not on filedocumented as of this encounter Procedures Procedure Name Priority Date/Time Associated Diagnosis Comme nts [facility] NEUROMUSCULAR Routine 09/02/2014 8:27 AM Pain in joint, RE-EDUCATION PURCHASING CONTRACTING CLERK shoulder region, left Other Specified Aftercare Following Surgery Sprain And Strain Of Other Specified Sites Of Shoulder And Upper Arm Z THERAPEUTIC Routine 09/02/2014 8:27 AM Pain in joint, ACTIVITIES PURCHASING CONTRACTING CLERK shoulder region, left Other Specified Aftercare Following Surgery Sprain And Strain Of Other Specified Sites Of Shoulder And Upper Arm Z THERAPEUTIC EXERCISES Routine 09/02/2014 8:27 AM Pain in j oint, PURCHASING CONTRACTING CLERK shoulder region, left Other Specified Aftercare Following Surgery Sprain And Strain Of Other Specified Sites Of Shoulder And Upper Arm documented in this encounter Visit Diagnoses Diagnosis Pain in joint, shoulder region, left - P rimary Other specified aftercare following surg jovany Sprain and strain of other specified sit es of shoulder and upper arm documented in this encounter Care Teams Jacquard Loom Carpet Weaver Relationship Specialty Start Date End Date Christiane Stahl MD PCP - General Pediatrics 06/01/12 [address] [address] [id number] documented as of this encounter
--- OUTSIDE RECORDS SUMMARY | 2022-07-30 13:51 | XMS_ITS | Encounter Summary ---
:2000 Author Organization [facility] Address [address] [place] [address] Care Team Providers Name Role Phone Christiane Stahl MD Primary Care Provider [phone] Reason for Visit Reason Comments Musculoskeletal Problem Left shoulder pain Encounter Details Date Type Department Care Team Description 06/09/2014 Office Visit [facility] Campbell Hartley Pai n in joint, Orthopedic Care Daniel VARGAS shoulder region, left [place] [address] [place] (Primary Dx) [address] [facility] [address] [place] [phone] (Wo rk) Social History Tobacco Use Types Packs/Day Years Used Date Smoking Tobacco: Never Smokeless Tobacco: Never Sex Assigned at Date Recorded Not on file documented as of this encounter Last Filed Vital Signs Vital Sign Reading Time Taken Comments Blood Pressure 118/68 06/09/2014 10:30 AM CDT Pulse - - Temperature - - Respiratory Rate - - Oxygen Saturation - - Inhaled Oxygen Concentration - - Weight 91.2 kg (201 lb) 06/09/2014 10:30 AM CDT Height 177.8 cm (5' 10) 06/09/2014 10:30 AM CDT Body Mass Index 28.84 06/09/2014 10:30 AM CDT Body Mass Index Percentile 97.48 % 06/09/2014 10:30 AM C DT Growth Chart: CDC (Boys, 2-20 Years) documented in this encounter Patient Instructions Patient InstructionsOctavioJayden zhangkaya Pulido - 06/09/2014 10:55 AM CDT Please call [facility] [phone] ([address] [place], [place]) to schedule your appointment if you have not heard from them in two business days Arrive 15 minutes early. If you need to cancel or change the appointment please call [facility] [phone] ([address] [place], [place]) Please follow up in clinic 2 business days following the MRI documented in this encounter Progress Notes Campbell Hartley MD - 06/09/2014 10:35 AM CDT HISTORY OF PRESENT ILLNESS: Saurabh Poon is a 14 year old male who is seen in consultation at the request of Dr. Michael Ross for Left shoulder pain. Patient is accompanied by mother and brother. Patient states he feels his shoulder pop in and out of the joint during football. If he elevates arm near 90 degrees and brings it posteriorly during a hit he feels it go out. Patient states the pain is sharp at first but when he shakes his arm a bit he feels it go back in.It then feels sore, but the pain subsides. He states he first noticed it during the winter when snowboarding when he fell on his left arm. It hurt for a week when he used a sling and it felt better. He did not seak treatment at that time. Present symptoms: sharp pain at time And some soreness. Not tender Treatments tried to this point: Topical Treatments: Ice , sling from home Orthopedic PMH: none No past medical history on file.None No past surgical history on file.None Family History Problem Relation Age of Onset ??? Genetic Brother citrullinemia- developmental delay ??? Genetic Mother ??? Genetic Father ??? Diabetes Father ??? Circulatory Father ??? Eye Maternal Grandmother ??? Eye Paternal Grandmother ??? Stroke Paternal Grandfather ??? Diabetes Paternal Grandmother ??? Heart Maternal Grandfather History Social History ??? Marital Status: Single Spouse Name: N/A Number of Children: N/A ??? Years of Education: N/A Occupational History ??? Not on file. Social History Main Topics ??? Smoking status: Never Smoker ??? Smokeless tobacco: Never Used ??? Alcohol Use: Not on file ??? Drug Use: Not on file ??? Sexual Activity: Not on file Other Topics Concern ??? Not on file Social History Narrative ??? No narrative on file Current Outpatient Prescriptions Medication Sig Dispense Refill ??? albuterol (PROAIR HFA, PROVENTIL HFA, VENTOLIN HFA) 108 (90 BASE) MCG/ACT inhaler Inhale 2 puffsinto the lungs every 4 hours as needed for shortness of breath / dyspnea 1 Inhaler 1 ??? montelukast (SINGULAIR) 10 MG tablet Take 1 tablet by mouth At Bedtime. 90 tablet 3 No Known Allergies REVIEW OF SYSTEMS: CONSTITUTIONAL: Recent nighttime chills INTEGUMENTARY/SKIN: NEGATIVE for worrisome rashes, moles or lesions EYES: NEGATIVE for vision changes or irritation ENT/MOUTH: NEGATIVE for ear, mouth and throat problems RESP: NEGATIVE for significant cough or SOB BREAST: NEGATIVE for masses, tenderness or discharge CV: NEGATIVE for chest pain, palpitations or peripheral edema GI: NEGATIVE for nausea, abdominal pain, heartburn, or change in bowel habits : Negative MUSCULOSKELETAL: See HPI above NEURO: NEGATIVE for weakness, dizziness or paresthesias ENDOCRINE: NEGATIVE for temperature intolerance, skin/hair changes HEME/ALLERGY/IMMUNE: NEGATIVE for bleeding problems PSYCHIATRIC: NEGATIVE for changes in mood or affect PHYSICAL EXAM: BP 118/68 Ht 5' 10 (1.778 m) Wt 201 lb (91.173 kg) BMI 28.84 kg/m2 Body mass index is 28.84 kg/(m^2). GENERAL APPEARANCE: healthy, alert and no distress SKIN: no suspicious lesions or rashes NEURO: Normal strength and tone, mentation intact and speech normal VASCULAR: Good pulses, and capillary refill LYMPH: no lymphadenopathy PSYCH: mentation appears normal and affect normal/bright MSK: Healthy-appearing male who is not in acute distress Gait is normal Both shoulders have full active and passive range of motion With external rotation and abduction of the left shoulder, he complains of pain in the lateral aspect of shoulder He does not have true apprehension test with abduction and external rotation of the left shoulder Reduction test was felt to be negative in that he continues to have pain anterior pressure of the shoulder No clicking is noted No shoulder sag is noted Motor function is full throughout bilaterally Biceps tendon groove area is tender A.c. 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 We talked about physical therapy if labral tear is absent versus possible surgical intervention if MRI scan shows a labral tear. In the meantime we felt that it would be safer for him to stop playing football. A note will be given for his football team. All questions were answered. Will check back with him after completion of MRI scan arthrogram to discuss future treatment options. Imaging Interpretation: None taken today Campbell Hartley MD Department of Orthopedic Surgery Disclaimer: This note consists of symbols derived from keyboarding, dictation and/or voice recognition software. As a result, there may be errors in the script that have gone undetected. Please consider this when interpreting information found in this chart. ] documented in this encounter Nursing Notes Priya Gunn - 06/09/2014 10:30 AM CDT Chief Complaint Patient presents with ??? Musculoskeletal Problem Left shoulder pain Initial BP 118/68 Ht 5' 10 (1.778 m) Wt 201 lb (91.173 kg) BMI 28.84 kg/m2 Estimated body mass index is 28.84 kg/(m^2) as calculated from the following: Height as of this encounter: 5' 10 (1.778 m). Weight as of this encounter: 201 lb (91.173 kg). BP completed using cuff size: RT Edgardo (R) documented in this encounter Plan of Treatment Not on filedocumented as of this encounter Visit Diagnoses Diagnosis Pain in joint, shoulder region, left - P rimary documented in this encounter Care Teams Project Construction Assistant Manager Relationship Specialty Start Date End Date Christiane Stahl MD PCP - General Pediatrics 06/01/12 [id number] [address] [place] [id number] documented as of this encounter
--- OUTSIDE RECORDS SUMMARY | 2022-07-30 13:51 | XMS_ITS | Encounter Summary ---
:2000 Author Organization [facility] Address [address] [place] [address]. [place] [address] Care Team Providers Name Role Phone Christiane Stahl MD Primary Care Provider [phone] Reason for Visit Reason Onset Date Comments Forms 01/01/2013 Encounter Details Date Type Department Care Team Description 01/01/2013 Telephone [facility] Christiane Stahl Forms [place] MD [address] [place] [address] [place] [address] [place] [address] (Wo rk) Social History Tobacco Use Types Packs/Day Years Used Date Smoking Tobacco: Never Smokeless Tobacco: Never Sex Assigned at Date Recorded Not on file documented as of this encounter Miscellaneous Notes Telephone Encounter - Latia Ceballos - 01/01/2013 11:45 AM CDT Mailed to parents. Telephone Encounter - Christiane Stahl MD - 01/01/2013 8:32 AM CDT Originally had appt today for sports physical. Just had physical in May and completed sports questionnaire. Reprinted letter from that visit. Mom notified. She would like form mailed to her. PLEASE MAIL- in my out basket. documented in this encounter Plan of Treatment Not on filedocumented as of this encounter Visit Diagnoses Not on filedocumented in this encounter Care Teams Arm Rest Builder Relationship Specialty Start Date End Date Christiane Stahl MD PCP - General Pediatrics 06/01/12 [address] [facility] [place] [address] documented as of this encounter
--- OUTSIDE RECORDS SUMMARY | 2022-07-30 13:51 | XMS_ITS | Encounter Summary ---
:2000 Author Organization [facility] Address [address] [facility] [place] [address] Care Team Providers Name Role Phone Christiane Stahl MD Primary Care Provider [phone] Encounter Details Date Type Department Care Team Description 08/05/2014 Therapy Visit [facility] Eveline Frank P T Pain in joint, shoulder region, left (Pr imary Dx); Rehabilitation Services [facility] [place] Status post labral repair of shoulder [address] [address] [place] [phone] Social History Tobacco Use Types Packs/Day Years [...] Associated Diagnosis Comme nts [facility] THERAPEUTIC Routine 08/05/2014 7:23 AM Pain in joint, ACTIVITIES CDT shoulder region, left Status post labral repair of shoulder [facility] NEUROMUSCULAR Routine 08/05/2014 7:23 AM Pain in joint, RE-EDUCATION CDT shoulder region, left Status post labral repair of shoulder [facility] THERAPEUTIC EXERCISES Routine 08/05/2014 7:23 AM Pain in j oint, CDT shoulder region, left Status post labral repair of shoulder documented in this encounter Visit Diagnoses Diagnosis Pain in joint, shoulder region, left - P rimary Status post labral repair of shoulder documented in this encounter Care Teams Wood Buffer Relationship Specialty Start Date End Date Christiane Stahl MD PCP - General Pediatrics 06/01/12 [address] [place] [address] documented as of this encounter
--- OUTSIDE RECORDS SUMMARY | 2022-07-30 13:51 | XMS_ITS | Encounter Summary ---
:2000 Author Organization [facility] Address [address] [place] [address] Care Team Providers Name Role Phone Christiane Stahl MD Primary Care Provider [phone] Reason for Referral [facility] Physical Therapy - Closed Specialty Diagnoses / Procedures Referred By Contact Refer red To Contact Diagnoses Labral tear of shoulder, left, [place] [address] [place] [address] Referral ID Status Reason Start Date Expiration Date Visits Requ ested Visits Authorized [id number] Closed 06/17/2014 12/14/2014 1 1 Reason for Visit Reason Onset Date Comments [facility] Orders 06/13/2014 Encounter Details Date Type Department Care Team Description 06/13/2014 Telephone [facility] Campbell Hartley MD [facility] Orders Orth[facility] [place] [address] [facility] [address] [facility] [address] [place] [address] [place] [address] [phone] Social History Tobacco Use Types Packs/Day Years Used Date Smoking Tobacco: Never Smokeless Tobacco: Never Sex Assigned at Date Recorded Not on file documented as of this encounter Miscellaneous Notes Telephone Encounter - Priya Gunn - 06/13/2014 10:43 AM CDT PT orders pending. Please sign documented in this encounter Plan of Treatment Scheduled Referrals Name Type Priority Associated Diagnoses Order S raz [facility] PT, HAND, AND Referral Routine Labral tear of shoulder , 06/13/2014 CHIROPRACTIC REFERRAL left, initial encou nter documented as of this encounter Visit Diagnoses Diagnosis Labral tear of shoulder, left, initial e ncounter - Primary documented in this encounter Care Teams Bar Steward Relationship Specialty Start Date End Date Christiane Stahl MD PCP - General Pediatrics 06/01/12 [address] [place] [address] documented as of this encounter
--- OUTSIDE RECORDS SUMMARY | 2022-07-30 13:51 | XMS_ITS | Encounter Summary ---
:2000 Author Organization [facility] Address [address] [place] [address]. [place] [address] Care Team Providers Name Role Phone Christiane Stahl MD Primary Care Provider [phone] Reason for Visit Reason Onset Date Comments *-*INCOMING RECORDS*-* 07/06/2012 Encounter Details Date Type Department Care Team Description 07/06/2012 Telephone [facility] Christiane Stahl *-*INCO LETTY RECORDS*-* [place] [address] [address] [address] [address] [place] [address] [phone] Social History Tobacco Use Types Packs/Day Years Used Date Smoking Tobacco: Never Smokeless Tobacco: Never Sex Assigned at Date Recorded Not on file documented as of this encounter Miscellaneous Notes Telephone Encounter - Christiane Stahl MD - 07/06/2012 2:05 PM CDT Records were reviewed from [facility]. History and problems as noted. Last physical was 06/25. documented in this encounter Plan of Treatment Not on filedocumented as of this encounter Visit Diagnoses Not on filedocumented in this encounter Care Teams Shade Bander Relationship Specialty Start Date End Date Christiane Stahl MD PCP - General Pediatrics 06/01/12 [address] [address] [place] [id number] documented as of this encounter
--- OUTSIDE RECORDS SUMMARY | 2022-07-30 13:51 | XMS_ITS | Encounter Summary ---
:2000 Author Organization [facility] Address [address] [place] [address] Care Team Providers Name Role Phone Christiane Stahl MD Primary Care Provider [phone] Reason for Visit Reason Comments Surgical Followup L shoulder labral repair, DO S 06/25/14. Dr. Hartley Encounter Details Date Type Department Care Team Description 08/04/2014 Office Visit [facility] Darin [facility]- Orthopedic Care Daniel Castillo PA-C [facility] emergency department, [address] following [address] [facility] [address] unspecified surgery [address] [place] [address] (Primary Dx) [place], [place] [address] [phone] Social History Tobacco Use Types Packs/Day Years Used Date Smoking Tobacco: Never Smokeless Tobacco: Never Alcohol Use Standard Drinks/Week Comments No 0 (1 standard drink = 0.6 oz pure alcoho l) Sex Assigned at Date Recorded Not on file documented as of this encounter Patient Instructions Patient InstructionsDarin Pike PA-C - 08/04/2014 2:46 PM CDT May continue with full motion. Work with physical therapist for gradual return to strength. Strength training in 4 weeks with gradual return. Goal of return to play at 10/25/13. No contact sports until 3/10/14. Follow up with Dr. Odilia first of the year. documented in this encounter Progress Notes Darin Pike PA-C - 08/04/2014 11:18 PM CDT HISTORY OF PRESENT ILLNESS: Saurabh Poon is a 14 year old male who is seen in follow up for L shoulder labral repair, DOS 06/25/14. Dr. Hartley. Patient reports with mother. Present symptoms: Patient reports no pain. Discontinued sling 2 weeks after last visit, and was not very diligent in ext rot and lifting restrictions. Started PT couple weeks ago, no complaints. Askingabout return to Activities. Denies Chest pain, Calve pain, Fever, Chills. Current Treatment: Post op, restrictions. PHYSICAL EXAM: There were no vitals taken for this visit. There is no height or weight on file to calculate BMI. GENERAL APPEARANCE: healthy, alert and no distress PSYCH: mentation appears normal and affect normal/bright MSK: Left: Shoulder . Ambulates: WNG. Incision clean and dry, well healing. No incisional erythema. No Ecchymosis. Edema None. CMS: leatha incisional numbness, otherwise grossly intact to LUE and hand. AROM Flex 170, ext rot 60, (rt ext rot 100), abduction 160. ASSESSMENT: Saurabh Poon is a 14 year old male S/P L shoulder labral repair, DOS 06/25/14. Dr. Hartley. Non compliant with recommendations. Improving ROM. PLAN: - Surgery discussed, images reviewed if applicable, and all questions were answered at this time. - Care instructions given and verbally acknowledged. - Lifting restrictions for 2 weeks, then gradual strength training per therapist. - Physical Therapy: per referral. - Goal, return to play non contact 4 months post, and contact 6 months. Return to clinic [address] Odilia Pike PA-C Dept. Orthopedic Surgery [facility] documented in this encounter Plan of Treatment Not on filedocumented as of this encounter Visit Diagnoses Diagnosis Follow-up examination, following unspeci fied surgery - Primary documented in this encounter Care Teams Branch Account Manager Relationship Specialty Start Date End Date Christiane Stahl MD PCP - General Pediatrics 06/01/12 [address] [address] [place] [id number] documented as of this encounter
--- OUTSIDE RECORDS SUMMARY | 2022-07-30 13:51 | XMS_ITS | Encounter Summary ---
:2000 Author Organization [facility] Address [address] [place] [address] Care Team Providers Name Role Phone Christiane Stahl MD Primary Care Provider [phone] Reason for Visit Reason Comments Surgical Followup L shoulder labral repair, an terior capsule repair, DOS 06/25/14, Dr. Hartley Encounter Details Date Type Department Care Team Description 07/01/2014 Office Visit [facility] Darin Pike [facility]- Orthopedic Care Daniel Castillo PA-C [facility], [address] following [address] [facility] [address] unspecified surgery [address] [place] [address] (Primary Dx) [place] [address] [phone] Social History Tobacco Use Types Packs/Day Years Used Date Smoking Tobacco: Never Smokeless Tobacco: Never Alcohol Use Standard Drinks/Week Comments No 0 (1 standard drink = 0.6 oz pure alcoho l) Sex Assigned at Date Recorded Not on file documented as of this encounter Patient Instructions Patient InstructionsDarin Pike PA-C - 07/01/2014 9:00 AM CDT [place] were removed and Steri-Strips applied in usual fashion. Care instructions given and acknowledged: Keep dry 24-48 hours. Showering ok at that time, however no soaking of incision for 1 weeks. Steri-strips will most likely fall off on their own, however they may be removed after 1 weeks with rubbing alcohol if they have not. Sling for 4 weeks following surgery when [...] therapy in 3 weeks. Call to schedule [phone] Follow up in 4 weeks. documented in this encounter Progress Notes Darin Pike PA-C - 07/03/2014 9:40 AM CDT HISTORY OF PRESENT ILLNESS: Saurabh Poon is a 14 year old male who is seen in follow up for L shoulder labral repair, anterior capsule repair, DOS 06/25/14, Dr. Hartley. Presents with mother and father. Present symptoms: Reports having minimal pain in sling. Some discomfort with moving to get dressed, etc. Using sling except hygiene and elbow movements. No other complaints. Denies Chest pain, Calve pain, Fever, Chills. Current Treatment: Post op, sling. PHYSICAL EXAM: There were no vitals taken for this visit. There is no height or weight on file to calculate BMI. GENERAL APPEARANCE: healthy, alert and no distress PSYCH: mentation appears normal and affect normal/bright MSK: Left: Shoulder . Ambulates: WNG. Incision clean and dry, jayden present, healing. Appropriate incisional erythema. Yes Ecchymosis mild. No calve pain on palpation. Edema min. CMS: leatha incisional numbness, otherwise grossly intact. AROM Deferred at shoulder, elbow and hand WNL. ASSESSMENT: Saurabh Poon is a 14 year old male S/P L shoulder labral repair, anterior capsule repair, DOS 06/25/14, Dr. Hartley. Stable. PLAN: - Surgery discussed, images reviewed if applicable, and all questions were answered at this time. - Jayden removed with sterile technique, steri-strips applied in usual fashion, care instructions given and verbally acknowledged. - Medications: OTC/ ORN - See patient instructions for PT/activities. - Gym letter. Return to clinic 4, weeks Darin Pike PA-C Dept. Orthopedic Surgery [facility] documented in this encounter Plan of Treatment Not on filedocumented as of this encounter Visit Diagnoses Diagnosis Follow-up examination, following unspeci fied surgery - Primary documented in this encounter Care Teams Kelly Machine Operator Relationship Specialty Start Date End Date Christiane Stahl MD PCP - General Pediatrics 06/01/12 [address] [place] [address] documented as of this encounter
--- OUTSIDE RECORDS SUMMARY | 2022-07-30 13:51 | XMS_ITS | Encounter Summary ---
:2000 Author Organization [place] Address Critical access hospital0 [place] [address] Care Team Providers Name Role Phone Christiane Stahl MD Primary Care Provider [phone] Reason for Visit Auth/Cert - Closed Specialty Diagnoses / Procedures Referred By Contact Refer red To Contact Surgery Diagnoses Labral tear Rh Periop Services Procedures ARTHROSCOPY SHOULDER SUPERIOR LABRUM ANTERIOR TO POSTERIOR REPAIR [address], [place] [address] Phone: Fax: Referral ID Status Reason Start Date Expiration Date Visits Requ ested Visits Authorized [id number] Closed 1 1 Encounter Details Date Type Department Care Team Description 06/25/2014 Anesthesia Event [facility] Chalo Miller MD [facility] [address] [place], [place] [address] [facility] Jamal Kearney APRN IC ENGINEER S [facility] [address] [place], [place] [id number] [address] [place] [address] Anesthesia Record Procedure Summary Procedure Name Responsible Anesthesia Start Anesthesia Stop Time Anesthesiologist Time Open Bankart repair Chalo Miller MD 06/25/14 1238 06/25/14 1420 (two 1.8 anchors were used) and inferior capsular shift (Shoulder) Events Date Time Event Comment 06/25/2014 1232 1238 An Start 1238 Quick Note To OR, monitors on, VSS, patient positioned to comfort, pre-O2, smooth I V induction, eyes taped, ATI x 1, all PPP. 1241 An Start Data 1243 An Induction 1244 AN START SEVO 1246 An Intubation 1247 MD Present 1348 MD Present 1411 AN END SEVO 1415 an stop data 1420 An Stop Electronically s igned by Nav Urbano on June 25 2:20 PM Name Total midazolam 1mg/mL 2 mg fentanyl 50mcg/mL 150 mcg lidocaine 1% 50 mg propofol 10mg/mL 200 mg rocuronium 10mg/mL 50 mg glycopyrrolate 0.2mg/mL 0.7 mg neostigmine 1mg/mL 2.5 mg dexamethasone 4mg/mL 4 mg ondansetron 2mg/mL 4 mg ketorolac 30mg/mL 30 mg ceFAZolin (ANCEF) IVPB 2 g (pre-mix) 2 g lactated ringers infusion 1,400 mL Agents Name O2 N2O Exp Sevoflurane Blood No blood administrations on file. Lines, Drains, and Airways Type Details Placement Removal Incision/Surgical Site 06/25/14; 1304; Left; 06/25/14 1304 by Shoulder Serg Alford, FARZANEH Peripheral IV 06/25/14; 18 G; Right, 06/25/14 0000 by 06/25/14 1715 by Medial; Hand; Metacarpal Shawanda Simmons, Luzmaria Kerns A, vein (top of hand); RN RN Chlorhexidine; Injectable; Tolerated well RETIRED ETT 06/25/14; 1246; Airway 06/25/14 1246 by 06/25/14 1412 by Size: 7; Cuffed; Oral Nav Urbano, endotracheal tube; Blade JF Butt CRNA, APRN Type: Perkins; Blade IC ENGINEER Size: 2; Place by: PS; Insertion Attempts: 1; Breath Sounds: Equal, clear and bilateral; End Tidal CO2: Present; Dentition: Intact; Grade View of Cords: 1 documented in this encounter Social History Tobacco Use Types Packs/Day Years Used Date Smoking Tobacco: Never Smokeless Tobacco: Never Alcohol Use Standard Drinks/Week Comments No 0 (1 standard drink = 0.6 oz pure alcoho l) Sex Assigned at Date Recorded Not on file documented as of this encounter OR Notes Anesthesia Postprocedure Evaluation - Chalo Miller MD - 06/25/2014 5:46 PM CDT Anesthesia Post-Evaluation Note Patient: Saurabh Poon Procedure(s) Performed: Procedure(s) with comments: ARTHROTOMY SHOULDER - Left Shoulder Open Labral Repair and Capsular Shifting Patient location: PACU Anesthesia type: General Patient Condition Respiratory Function (RR / SpO2 / Airway Patency): Satisfactory Cardiac Function (HR / Rhythm / BP): Satisfactory Mental Status: Satisfactory Temperature: Satisfactory Pain Control: Satisfactory PONV: None or treated Hydration Status: Satisfactory Beta-Diane Therapy: None indicated, given if indicated Blood pressure 139/64, temperature 99.7 ??F (37.6 ??C), temperature source Temporal, resp. rate 20, height 1.803 m (5' 10.98), weight 87.59 kg (193 lb 1.6 oz), SpO2 96 %. B/P: 139/64, T: 99.7, P: Data Unavailable, R: 20 Chalo Miller MD Anesthesia Preprocedure Evaluation - Chalo Miller MD - 06/25/2014 11:59 AM CDT Anesthesia Evaluation . Pt has not had prior anesthetic ROS/MED HX ENT/Pulmonary: (+)Intermittent asthma Treatment: Inhaler prn, , . . Neurologic: - neg neurologic ROS Cardiovascular: - neg cardiovascular ROS METS/Exercise Tolerance: Hematologic: - neg hematologic ROS Musculoskeletal: - neg musculoskeletal ROS GI/Hepatic: - neg GI/hepatic ROS Renal/Genitourinary: - ROS Renal section negative Endo: - neg endo ROS Psychiatric: - neg psychiatric ROS Infectious Disease: - neg infectious disease ROS Malignancy: - no malignancy Other: (+) No chance of C-spine cleared: N/A, no H/O Chronic Pain,no other significant disability - neg other ROS Physical Exam Normal systems: cardiovascular, pulmonary and dental Airway Mallampati: II TM distance: >3 FB Neck ROM: full Dental Cardiovascular Pulmonary Anesthesia Plan ASA Score: 2 . Plan for General and ETT - with Intravenous induction.Maintenance will be Balanced. Routine analgesia and antiemetics to be used for post-operative care. Anesthetic plan, risks, benefits and alternatives discussed with: patient or fundraising sale representative. Possibility of blood products discussed. History & Physical Review History and physical reviewed; no interval change. . documented in this encounter Miscellaneous Notes Anesthesia Care Transfer Note - Nav Urbano APRN CRNA - 06/25/2014 2:20 PM CDT Anesthesia Care Transfer Note Patient: Saurabh Poon Transferred to: PACU Patient vital signs: stable Airway: none documented in this encounter Plan of Treatment Not on filedocumented as of this encounter Visit Diagnoses Not on filedocumented in this encounter Administered Medications Inactive Administered Medications - up to 3 most recent administrations Medication Order MAR Action Action Date Dose Rate Site ceFAZolin (ANCEF) IVPB 2 g Given 06/25/2014 12:38 PM CDT 2 g (pre-mix) Routine, 2 g, Intravenous, PRE-OP/PRE-PROCEDURE, Starting on Mon06/25/14 at 1123, For 1 dose, Give first dose within 1 hour PRIOR to incision. If patient weight is greater than or equal to 120 kg change dose to 3 g., Indications: Perioperative Pharmacoprophylaxis, Pre-procedure dexamethasone (DECADRON) injection Given 06/25/2014 12:47 PM CDT 4 mg PRN, Administer over 1-4 Minutes, Starting on Mon06/25/14 at 1247, Anesthesia Intra-op fentaNYL (SUBLIMAZE) injection Given 06/25/2014 2:17 PM CDT 50 mcg PRN, moderate to severe pain, Starting on Mon06/25/14 at 1241, Anesthesia Intra-op Given 06/25/2014 12:41 PM CDT 100 mcg glycopyrrolate (ROBINUL) injection Given 06/25/2014 2:08 PM CDT 0.3 mg PRN, Starting on Mon06/25/14 at 1247, Anesthesia Intra-op Given 06/25/2014 1:56 PM CDT 0.2 mg Given 06/25/2014 12:47 PM CDT 0.2 mg ketorolac (TORADOL) injection Given 06/25/2014 1:12 PM CDT 30 mg PRN, moderate pain, Starting on Mon06/25/14 at 1312, Anesthesia Intra-op lactated ringers infusion New Bag 06/25/2014 1:10 PM CDT at 75-100 mL/hr, Intravenous, CONTINUOUS, UNLESS otherwise indicated., Pre-procedure, Starting on Mon06/25/14 at 1145, Until Mon06/25/14 at 1417 New Bag 06/25/2014 12:18 PM CDT lidocaine 1 % injection Given 06/25/2014 12:47 PM CDT 50 mg PRN, Starting on Mon06/25/14 at 1247, Anesthesia Intra-op midazolam (VERSED) injection Given 06/25/2014 12:38 PM CDT 2 mg PRN, anxiety, Starting on Mon06/25/14 at 1238, Anesthesia Intra-op neostigmine (PROSTIGMINE) injection Given 06/25/2014 2:08 PM CDT 2.5 mg Intravenous, PRN, Starting on Mon06/25/14 at 1408, Anesthesia Intra-op ondansetron (ZOFRAN) injection Given 06/25/2014 1:12 PM CDT 4 mg PRN, nausea, vomiting, Administer over 2-5 Minutes, Starting on Mon06/25/14 at 1312, Anesthesia Intra-op propofol (DIPRIVAN) injection 10 mg/mL v ial Given 06/25/2014 12:47 PM CDT 200 mg PRN, Starting on Mon06/25/14 at 1247, Anesthesia Intra-op rocuronium (ZEMURON) injection Given 06/25/2014 12:47 PM CDT 50 mg PRN, Starting on Mon06/25/14 at 1247, Anesthesia Intra-op documented in this encounter Care Teams Mobile Sales Technician Relationship Specialty Start Date End Date Christiane Stahl MD PCP - General Pediatrics 06/01/12 [address] [place] [address] documented as of this encounter
--- OUTSIDE RECORDS SUMMARY | 2022-07-30 13:51 | XMS_ITS | Encounter Summary ---
:2000 Author Organization [employer] Address [address] [facility] [place] [address] Care Team Providers Name Role Phone Christiane Stahl MD Primary Care Provider [phone] Encounter Details Date Type Department Care Team Description 07/29/2014 Therapy Visit [facility] Eveline Frank P T Stiffness of joint, not elsewhere classi fied, shoulder region (Primary Dx); Rehabilitation Services [facility] [place] Status post labral repair of shoulder [address] [address] [place] [address] [phone] Social History Tobacco Use Types Packs/Day Years Used Date Smoking Tobacco: Never Smokeless Tobacco: Never Alcohol Use Standard Drinks/Week Comments No 0 (1 standard drink = 0.6 oz pure alcoho l) Sex Assigned at Date Recorded Not on file documented as of this encounter Progress Notes Eveline Frank, PT - 07/29/2014 7:18 AM CDT Subjective: HPI Comments: Pt is a non-smoking 14 y/o male who c/o improving, intermittent 3/10 L shoulder pain s/p labral tear and repair during football 05/2014. Pt had labral repair 06/26/14. Pt has participated in 2 PT visits post- op, reporting % improvement. Pt met reaching goal. Pt demonstrates improved SPadi score from 23 to Improved 3/10 to 0/10 Objective measures taken today: No strength test via restrictions. No Abduction tested via restrictions. Improving AAROM into extension and IR with wand. Objective: System Shoulder Evaluation: ROM: PROM: : AAROM: Ext, IR p. concordant ant shoulder pain min restrictios. General ROS Assessment/Plan: Patient is a 14 year old male with left side shoulder complaints. Patient has the following significant findings with corresponding treatment plan. Diagnosis 1: L shoulder pain s/p labral tear Pain - self management, education and home program Impaired muscle performance - neuro re-education and home program Decreased function - therapeutic activities and home program Impaired posture - neuro re-education, therapeutic activities and home program Previous and current functional limitations: (See Goal Flow Sheet for this information) Short term and residential goals: (See Goal Flow Sheet for this [...] 1 X week, once daily Duration: for 6 weeks Discharge Plan: Independent in home treatment program. Reach maximal therapeutic benefit. Please refer to the daily flowsheet for treatment today, total treatment time and time spent performing 1:1 timed codes. documented in this encounter Plan of Treatment Not on filedocumented as of this encounter Procedures Procedure Name Priority Date/Time Associated Diagnosis [facility] THERAPEUTIC Routine 07/29/2014 7:46 AM Stiffness Of Joint, ACTIVITIES CDT Not Elsewhere Classified, Shoulder Region Status post labral repair of shoulder [facility] NEUROMUSCULAR Routine 07/29/2014 7:46 AM Stiffness Of Join t, RE-EDUCATION CDT Not Elsewhere Classified, Shoulder Region Status post labral repair of shoulder [facility] THERAPEUTIC EXERCISES Routine 07/29/2014 7:46 AM Stiffness Of Joint, CDT Not Elsewhere Classified, Shoulder Region Status post labral repair of shoulder documented in this encounter Visit Diagnoses Diagnosis Stiffness of joint, not elsewhere classi fied, shoulder region - Primary Stiffness of joint, not elsewhere classi fied, shoulder region Status post labral repair of shoulder documented in this encounter Care Teams Sample Coordinator Relationship Specialty Start Date End Date Christiane Stahl MD PCP - General Pediatrics 06/01/12 [address] [address] [id number] documented as of this encounter
--- OUTSIDE RECORDS SUMMARY | 2022-07-30 13:51 | XMS_ITS | Encounter Summary ---
:2000 Author Organization [place] Address [address] [place] [address] Care Team Providers Name Role Phone Christiane Stahl MD Primary Care Provider [phone] Reason for Visit Reason Onset Date Comments Schedule Surgery 06/13/2014 left shoulder Encounter Details Date Type Department Care Team Description 06/13/2014 Telephone [facility] Campbell Hartley MD Schedule Surgery (left [facility] [place] [address] [facility] shoulder) [facility] [address] [place] [address] [phone] Social History Tobacco Use Types Packs/Day Years Used Date Smoking Tobacco: Never Smokeless Tobacco: Never Sex Assigned at Date Recorded Not on file documented as of this encounter Miscellaneous Notes Telephone Encounter - Priya Gunn - 06/13/2014 10:36 AM CDT Scheduled surgery on 06/23/14 @ [facility] for Left shoulder open labral tear repair & capsular shifting with Dr. Hartley. Priya Gunn, RT (R) documented in this encounter Plan of Treatment Not on filedocumented as of this encounter Visit Diagnoses Not on filedocumented in this encounter Care Teams Glass Bender Relationship Specialty Start Date End Date Christiane Stahl MD PCP - General Pediatrics 06/01/12 [address] [place] [address] documented as of this encounter
--- OUTSIDE RECORDS SUMMARY | 2022-07-30 13:51 | XMS_ITS | Encounter Summary ---
:2000 Author Organization [place] Address [address] [place] [address] Care Team Providers Name Role Phone Christiane Stahl MD Primary Care Provider [phone] Reason for Visit Auth/Cert - Closed Specialty Diagnoses / Procedures Referred By Contact Refer red To Contact Surgery Diagnoses Labral tear Rh Periop Services Procedures ARTHROSCOPY SHOULDER SUPERIOR LABRUM ANTERIOR TO POSTERIOR REPAIR [address] [place], [place] [address] Phone: Fax: Referral ID Status Reason Start Date Expiration Date Visits Requ ested Visits Authorized [id number] Closed 1 1 Encounter Details Date Type Department Care Team Description 06/25/2014 Hospital Encounter [facility] Campbell Johnson, Post-op pain [place] PreOP/PostOP (Primary Dx) [address] [address] [place], [place] [address] [facility] [phone] [place], [place] [phone] [address] Social History Tobacco Use Types Packs/Day Years Used Date Smoking Tobacco: Never Smokeless Tobacco: Never Alcohol Use Standard Drinks/Week Comments No 0 (1 standard drink = 0.6 oz pure alcoho l) Sex Assigned at Date Recorded Not on file documented as of this encounter Last Filed Vital Signs Vital Sign Reading Time Taken Comments Blood Pressure 139/72 06/25/2014 3:27 PM CDT Pulse - - Temperature 37.6 ??C (99.7 ??F) 06/25/2014 3:27 PM CDT Respiratory Rate 20 06/25/2014 3:27 PM CDT Oxygen Saturation 96% 06/25/2014 3:27 PM CDT Inhaled Oxygen Concentration - - Weight 87.6 kg (193 lb 1.6 oz) 06/25/2014 11:06 AM CDT Height 180.3 cm (5' 10.98) 06/25/2014 11:06 AM CDT Body Mass Index 26.94 06/25/2014 11:06 AM CDT Body Mass Index Percentile 95.77 % 06/25/2014 11:06 AM C DT Growth Chart: [facility] [place] (Boys, 2-20 Years) documented in this encounter Discharge Instructions Discharge InstructionsShawanda Simmons RN - 06/25/2014 2:[address] [facility] PHONE NUMBER: [phone] TOOK ONE PAIN PILL AT 3 PM [...] surgery: June 25, 2014 Surgeon: Dr. Campbell Johnson Primary physician: Christiane Stahl Hospital/Surgical Facility: [facility] Procedure: L [...] once this encounter has been closed--see header) [facility] [address] [facility] [phone] This report is available electronically at [facility]. 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 PROCEDURE: Open Bankart repair (two Linvatec 1.8 Y-knot anchors were used) and inferior capsular shift. SURGEON: Campbell Johnson MD SORTING MACHINE ATTENDANT: Max Pike PA-C. Assistance from the PA was essential for this procedure for satisfactory protection of the axillary nerve and manipulation of the arm throughout the process. In addition, assistant professor of psychology was necessary for satisfactory exposure of the [...] superior leaflet was then brought down in [id number] fashion and repair was done with nonabsorbable [...] at the end of the case. CAMPBELL JOHNSON MD MT: [id number] Name: SAURABH POON Account: [id number] : 2000 Procedure Date: 06/25/2014 Document: [id number] Brief Op Note - Campbell Johnson MD - 06/25/2014 2:25 PM CDT [facility] Brief Operative Note Pre-operative diagnosis: Labral tear Post-operative diagnosis left shoulder chronic instability with Bankart lesion Procedure: Procedure(s): ARTHROTOMY SHOULDER Surgeon: Campbell Johnson MD, MD Assistants(s): TRIPP Barriga Anesthesia: General [...] H&P documented in this encounter Visit Diagnoses Diagnosis Post-op pain - Primary Other acute postoperative pain documented in this encounter Administered Medications Inactive [...] dose = 2 mg , PACU/Phase II meperidine (DEMEROL) injection 12.5 mg Given 06/25/2014 [...] (pre-mix) (COMPLETED) 1238 (Given - Provider: Nav Urbano, PRIVATE BRANCH EXCHANGE INSTALLER CT SCAN TECHNOLOGIST) Routine, 2 g, Intravenous, PRE-OP/PRE-AZ OCEDURE, Starting on Mon06/25/14 at 1123, For [...] (CANCELED) 1218 (New Bag - Provider: Nav Urbano, PRIVATE BRANCH EXCHANGE INSTALLER CT SCAN TECHNOLOGIST)1310 (New Bag - Provider: Nav Urbano APRN CT SCAN TECHNOLOGIST)1415 (Anesthesia Volume Adjustment - Provider: Nav Urbano PRIVATE BRANCH EXCHANGE INSTALLER CT SCAN TECHNOLOGIST) at 75-100 mL/hr, Intravenous, CONTINUOUS , UNLESS [...] RN) 0.3-0.5 mg, Intravenous, EVERY 10 MIN AZ N, moderate to severe pain, acute pain.?May administer if RR is > 10 , Starting on Mon06/25/14 at 1416, If fentanyl is also ordered, use HYDROmorphone if pa in control insufficient with fentanyl or a longer acting agent is needed. Max cumulative dose = 2 mg , PACU/Phase II lidocaine 1% with EPINEPHrine 1:100,000 1 %-1:[id number] injection ( CANCELED) 1410 (Given - Provider: Campbell Johnson MD) PRN, Starting on Mon06/25/14 at 1426, Intra-procedure meperidine (DEMEROL) injection 12.5 mg (COMPLETED) 1430 (Given - Provider: Shawanda Simmons, RN)1456 (Given - Provider: Shawanda Simmons, RN) 12.5 mg, Intravenous, EVERY 15 MIN PRN, post anesthesia shivering, Starting on Mon06/25/14 at 1416, For 2 doses, PACU/Phase II documented in this encounter Care Teams Youth Advocate Relationship Specialty Start Date End Date Christiane Stahl MD PCP - General Pediatrics 06/01/12 [address] [place] [address] documented as of this encounter
--- OUTSIDE RECORDS SUMMARY | 2022-07-30 13:51 | XMS_ITS | Encounter Summary ---
:2000 Author Organization [place] Address [address] [place] [address]. [place] [address] Care Team Providers Name Role Phone Christiane Stahl MD Primary Care Provider [phone] Reason for Visit Reason Onset Date Comments Refill Request 05/26/2014 Albuterol Encounter Details Date Type Department Care Team Description 05/26/2014 Refill [facility] Christiane Stahl Refill Request Clinic Jack Miller MD (Albuterol ) [address] [address] [address] [place] [address] [phone] Social History Tobacco Use Types Packs/Day Years Used Date Smoking Tobacco: Never Smokeless Tobacco: Never Sex Assigned at Date Recorded Not on file documented as of this encounter Miscellaneous Notes Telephone Encounter - Christiane Stahl MD - 05/27/2014 4:03 PM CDT Mom hear. Wants inhaler for FB just in case. Has not had any problems. Telephone Encounter - Christiane Stahl MD - 05/26/2014 10:43 AM CDT Please call and let mom know that we would recommend he come in for a check up since it has been 2 yrs since his last one. We need to get an ACT form done. See if taking Singulair daily still too and Ican write a new AAP and we can refill his Albuterol. Telephone Encounter - Bushra Perry, RN - 05/26/2014 10:39 AM CDT The pt's mom called and requested a refill on the medication below Unable to refill PSO, not able to pso since he hasn't been seen since 05/30/12. I will route this tohis provider to see if she wants to refill Last Seen: 05/30/12 with MW Last Filled: 05/30/12 2 inhalers with one refill Bushra Perry RN. documented in this encounter Plan of Treatment Not on filedocumented as of this encounter Visit Diagnoses Diagnosis Mild persistent asthma with exacerbation Unspecified asthma, with exacerbation documented in this encounter Care Teams Geological Drafter Relationship Specialty Start Date End Date Christiane Stahl MD PCP - General Pediatrics 06/01/12 [address] [place] [address] documented as of this encounter
--- OUTSIDE RECORDS SUMMARY | 2022-07-30 13:51 | XMS_ITS | Encounter Summary ---
:2000 Author Organization [place] Address [address] [facility] [place] [address] Care Team Providers Name Role Phone Unavailable Primary Care Provider Unavailable Reason for Visit Reason Onset Date Comments Other 05/23/2012 refill request Encounter Details Date Type Department Care Team Description 05/23/[address] [facility] Christiane Stahl Other ( refill request Clinic [place] ) [address] [address] [address] [place] [address] [phone] Social History Tobacco Use Types Packs/Day Years Used Date Smoking Tobacco: Never Smokeless Tobacco: Never Sex Assigned at Date Recorded Not on file documented as of this encounter Miscellaneous Notes Telephone Encounter - Corrina Kiran - 05/23/2012 2:58 PM CDT Mom was calling today for a refill on pts ventolin inhaler. They are working on switching him over to [facility] to follow dr gonzales. Since child has not been seen here yet, she called the old clinic to get this refilled as mom says child needs it this week, coughing has increased. Other clinic denied his rx since he has not been seen there for months. Informed mom since dr gonzales was out of clinic this week, and we did not have any records yet he should get seen as this is a maintenance medicationand should be followed regularly. Confirmed with [facility] and its been over a year since ryans been seen. I called the [facility] [address] pharmacy that they use and they had one refill left, informed mom to call them to get the refill but he needs to get in to clinic to be seen for his 12 yearwell check along with discussing this medication. Mom agrees with plan, and did call back today to make a well check on 05/[address] gonzales since school forms she has states he needs vaccines. Mom will call if any other concerns. Corrina Kiran, Medical Double End Production Grinder documented in this encounter Plan of Treatment Not on filedocumented as of this encounter Visit Diagnoses Not on filedocumented in this encounter
--- OUTSIDE RECORDS SUMMARY | 2022-07-30 13:51 | XMS_ITS | Encounter Summary ---
:2000 Author Organization [place] Address [address] [place] [address]. [place] [address] Care Team Providers Name Role Phone Christiane Stahl MD Primary Care Provider [phone] Reason for Visit Reason Comments URI Cough and chills x 5 days Encounter Details Date Type Department Care Team Description 06/11/2014 Office Visit [facility] Christiane Stahl Mild pe rsistent asthma with acute exacerbation (Primary Dx); Clinic Jack Miller MD Acute bronchitis; [address] [address] [address] [address] OME (otitis media with effusion), [place] [address] [place], [place] [phone] (Wo rk) [id number] [phone] Social History Tobacco Use Types Packs/Day Years Used Date Smoking Tobacco: Never Smokeless Tobacco: Never Sex Assigned at Date Recorded Not on file documented as of this encounter Last Filed Vital Signs Vital Sign Reading Time Taken Comments Blood Pressure 126/54 06/11/2014 1:40 PM CDT Pulse 78 06/11/2014 1:40 PM CDT Temperature 36.8 ??C (98.3 ??F) 06/11/2014 1:40 PM CDT Respiratory Rate - - Oxygen Saturation 100% 06/11/2014 1:40 PM CDT Inhaled Oxygen Concentration - - Weight 89.2 kg (196 lb 9.6 oz) 06/11/2014 1:40 PM CDT Height 178 cm (5' 10.08) 06/11/2014 1:40 PM CDT Body Mass Index 28.15 06/11/2014 1:40 PM CDT Body Mass Index Percentile 96.99 % 06/11/2014 1:40 PM CD T Growth Chart: [facility] (Boys, 2-20 Years) documented in this encounter Patient Instructions Patient InstructionsChristiane Stahl MD - 06/11/2014 1:55 PM CDT Zithromax is given for 5 days but will continue to work for an additional 5 days once medication is completed. If not improving over the next 5 days to let us know. Prednisone start with 3 pills twice per day up to 5 days max. If cough/ breathing improves can decrease dose to 2 pills twice per day. Keep using Albuterol inhaler every 4 hours until cough is better. documented in this encounter Progress Notes Christiane Stahl MD - 06/11/2014 1:42 PM CDT SUBJECTIVE: Saruabh Poon is a 14 year old male who presents to clinic today with mother and sibling because of: Chief Complaint Patient presents with ??? URI Cough and chills x 5 days HPI: ENT/Cough Symptoms Problem started: 5 days ago Fever: YES Runny nose: no Congestion: no Sore Throat: no Cough: YES Eye discharge/redness: no Ear Pain: no Wheeze: YES- a little bit Sick contacts: Family member (Parents and Sibling); Strep exposure: None; Therapies Tried: Nebulizer, inhaler, Child was seen in Urgent care on Monday also- told virus. No meds. Says he has not used inhaler at all this past year. Off Singulair for some time. Playing FB for [employer]. In process of getting shoulder evaluated. ROS: Negative for constitutional, eye, ear, nose, [...] reviewed & adjusted, as indicated. OBJECTIVE: BP 126/54 Pulse 78 Temp(Src) 98.3 ??F (36.8 ??C) (Oral) Ht 5' 10.08 (1.78 m) Wt 196 lb 9.6 oz (89.177 kg) BMI 28.15 kg/m2 SpO2 100% 82.7% systolic and 15.7% diastolic of BP percentile by age, sex, and height. 134/85 is approximatelythe 95th BP percentile reading. GENERAL: Active, alert, in no acute distress. SKIN: Clear. No significant rash, abnormal pigmentation or lesions HEAD: Normocephalic. EYES: No discharge or erythema. Normal pupils and EOM. EARS: Normal canals. Right Tympanic membrane has bubbles of clear fluid; left TM is normal; marion andtranslucent. NOSE: Congested. MOUTH/THROAT: Clear. No oral lesions. Teeth intact without obvious abnormalities. NECK: Supple, no masses. LYMPH NODES: No adenopathy LUNGS: Coarse rhonchi and expiratory wheezing throughout; no retractions HEART: Regular rhythm. Normal S1/S2. No murmurs. ABDOMEN: Soft, non-tender, not distended, no masses or hepatosplenomegaly. Bowel sounds normal. DIAGNOSTICS: None ASSESSMENT/PLAN: Mild intermittent asthma with acute exacerbation (primary encounter diagnosis) Comment: Wheezing a fair amount- does not feel it nor feel tight in chest. Asthma has been well controlled until this recent illness. Plan: Reviewed AAP. Currently in red zone. Will start predniSONE (DELTASONE) 10 MG tablet- 30 mg BID for 3-5 days. Continue Albuterol until cough resolved. (466.0) Acute bronchitis Comment: Viral vs Mycoplasma Plan: Given 3rd day of fever, will treat with azithromycin (ZITHROMAX) 250 MG tablet (381.4) OME (otitis media with effusion), right Comment: asymptomatic Plan: Should resolve FOLLOW UP: If not improving or if worsening Christiane Ross MD documented in this encounter Nursing Notes Mary Burkett CMA - 06/11/2014 1:42 PM CDT Chief Complaint Patient presents with ??? URI Cough and chills x 5 days Knott Madelaine SCANLON documented in this encounter Plan of Treatment Not on filedocumented as of this encounter Procedures Procedure Name Priority Date/Time Associated Diagnosis Comme nts ASTHMA ACTION PLAN Routine 06/11/2014 1:51 PM CDT documented in this encounter Visit Diagnoses Diagnosis Mild persistent asthma with acute exacer bation - Primary Unspecified asthma, with exacerbation Acute bronchitis OME (otitis media with effusion), right documented in this encounter Care Teams Band Presser Relationship Specialty Start Date End Date Christiane Stahl MD PCP - General Pediatrics 06/01/12 [id number] [place] [address] documented as of this encounter
--- OUTSIDE RECORDS SUMMARY | 2022-07-30 13:51 | XMS_ITS | Encounter Summary ---
:2000 Author Organization [facility] Address [address] [place] [address] Care Team Providers Name Role Phone Christiane Stahl MD Primary Care Provider [phone] Reason for Visit Reason Comments RECHECK L Shoulder pain Encounter Details Date Type Department Care Team Description 06/13/2014 Office Visit [facility] Campbell Hartley Ban kart lesion of Orthopedic Care Daniel VARGAS right shoulder, [place] [address] [place] subsequent encounter [address] (Primary Dx) [address] [place] [address] [phone] (Wo rk) Social History Tobacco Use Types Packs/Day Years Used Date Smoking Tobacco: Never Smokeless Tobacco: Never Sex Assigned at Date Recorded Not on file documented as of this encounter Last Filed Vital Signs Vital Sign Reading Time Taken Comments Blood Pressure 138/88 06/13/2014 8:30 AM CDT Pulse - - Temperature - - Respiratory Rate - - Oxygen Saturation - - Inhaled Oxygen Concentration - - Weight 86.2 kg (190 lb) 06/13/2014 8:30 AM CDT Height 177.8 cm (5' 10) 06/13/2014 8:30 AM CDT Body Mass Index 27.26 06/13/2014 8:30 AM CDT Body Mass Index Percentile 96.16 % 06/13/2014 8:30 AM CD T Growth Chart: [facility] (Boys, 2-20 Years) documented in this encounter Patient Instructions Patient InstructionsCampbell Hartley MD - 06/13/2014 10:13 AM CDT Surgery of Bankart repair and capsular tightening will be scheduled documented in this encounter Progress Notes Campbell Hartley MD - 06/13/2014 8:33 AM CDT HISTORY OF PRESENT ILLNESS: Saurabh Poon is a 14 year old male who is seen in follow up for L shoulder pain MRI follow up. Present symptoms: pain is doing pretty well. Pain with shoulder retraction 5/10 pain. Treatments tried to this point: Advance imagining: MRI / MRI Arthrogram (Taken 06/12) PHYSICAL EXAM: BP 138/88 Ht 5' 10 (1.778 m) Wt 190 lb (86.183 kg) BMI 27.26 kg/m2 Body mass index is 27.26 kg/(m^2). GENERAL APPEARANCE: healthy, alert and no distress SKIN: no suspicious lesions or rashes NEURO: Normal strength and tone, mentation intact and speech normal VASCULAR: good pulses, and cappillary refill LYMPH: no lymphadenopathy PSYCH: mentation appears normal and affect normal/bright MSK: unchanged IMAGING INTERPRETATION: MRI ASSESSMENT: Labral tear and Hill Sachs lesion consistent with prior dislocation Acute bone bruising of humeral head PLAN: MRI images and pathology were reviewed and explained thoroughly. Options were outlined. We felt thata surgical repair would be the best. Proposed surgery included open bankart repair and inferior capsular shifting. The nature of surgery and potential risks as well as recovery course were fully informed. The family decided to go ahead with the procedure. Room time 25 min; counseling time 25 min Campbell Hartley MD Dept. Orthopedic Surgery [facility] Disclaimer: This note consists of symbols derived from keyboarding, dictation and/or voice recognition software. As a result, there may be errors in the script that have gone undetected. Please consider this when interpreting information found in this chart. documented in this encounter Nursing Notes Hailee Christianson ATC - 06/13/2014 8:33 AM CDT Chief Complaint Patient presents with ??? RECHECK L Shoulder pain Initial BP 138/88 Ht 5' 10 (1.778 m) Wt 190 lb (86.183 kg) BMI 27.26 kg/m2 Estimated body mass index is 27.26 kg/(m^2) as calculated from the following: Height as of this encounter: 5' 10 (1.778 m). Weight as of this encounter: 190 lb (86.183 kg). BP completed using cuff size: blayne Christianson MS, ATC documented in this encounter Plan of Treatment Not on filedocumented as of this encounter Visit Diagnoses Diagnosis Bankart lesion of right shoulder, subseq uent encounter - Primary documented in this encounter Care Teams Sales Solutions Representative Relationship Specialty Start Date End Date Christiane Stahl MD PCP - General Pediatrics 06/01/12 [address] [address] [address] documented as of this encounter
--- OUTSIDE RECORDS SUMMARY | 2022-07-30 13:51 | XMS_ITS | Encounter Summary ---
:2000 Author Organization [place] Address [facility] [place] [address] Care Team Providers Name Role Phone Christiane Stahl MD Primary Care Provider [phone] Encounter Details Date Type Department Care Team Description 07/23/2014 Therapy Visit [facility] Eveline Frank P T Pain in joint, shoulder region, left (Pr imary Dx); Rehabilitation Services [facility] [place] Other specified aftercare following surg jovany; [place] [address] [facility] Labral tear of shoulder, left, initial e ncounter [address] [place] [phone] Social History Tobacco Use Types Packs/Day Years Used Date Smoking Tobacco: Never Smokeless Tobacco: Never Alcohol Use Standard Drinks/Week Comments No 0 (1 standard drink = 0.6 oz pure alcoho l) Sex Assigned at Date Recorded Not on file documented as of this encounter Progress Notes Eveline Frank, PT - 07/23/2014 8:37 AM CDT Subjective: HPI Comments: Pt is a non-smoking 14 y/o male who c/o improving, intermittent 3/10 L shoulder pain s/p labral tear and repair during football 3 weeks prior. MRI with FSOC, surgery scheduled for 06/26/14. No PMH. Current complaints WORSE with reach above or lay on it; BETTER with time and rest. Pt and dad reports general health is good. Pt is a student. 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 Objective: System Shoulder Evaluation: ROM: AROM: : min restrictions into elevation. Not tested ER due to restrictions. IR/ ext mod restrictionsp. concordant pain in L shoulder. Strength: not assessed Stability Testing: not assessed General ROS Assessment/Plan: Patient is a 14 year old male with left side shoulder complaints. Patient has the following significant findings with corresponding treatment plan. Diagnosis 1: Shoulder pain s/p labral tear/repair Pain - hot/cold therapy, self management, education and home program Decreased ROM/flexibility - therapeutic exercise, therapeutic activity and home program Impaired muscle performance - neuro re-education and home program Decreased function - therapeutic activities and home program Impaired posture - neuro re-education, therapeutic activities and home program Previous and current functional limitations: (See Goal Flow Sheet for this information) Short term and watermelon inspector goals: (See Goal Flow Sheet for this [...] 1 X week, once daily Duration: for 6-8 weeks Discharge Plan: Independent in home treatment program. Reach maximal therapeutic benefit. Please refer to the daily flowsheet for treatment today, total treatment time and time spent performing 1:1 timed codes. documented in this encounter Plan of Treatment Not on filedocumented as of this encounter Procedures Procedure Name Priority Date/Time Associated Diagnosis Comme [facility] NEUROMUSCULAR Routine 07/23/2014 8:50 AM Pain in joint, RE-EDUCATION CDT shoulder region, left Other Specified Aftercare Following Surgery Labral tear of shoulder, left, initial encounter [facility] THERAPEUTIC EXERCISES Routine 07/23/2014 8:50 AM Pain in j oint, CDT shoulder region, left Other Specified Aftercare Following Surgery Labral tear of shoulder, left, initial encounter documented in this encounter Visit Diagnoses Diagnosis Pain in joint, shoulder region, left - P rimary Other specified aftercare following surg jovany Labral tear of shoulder, left, initial e ncounter documented in this encounter Care Teams Electric Range Assembler Relationship Specialty Start Date End Date Christiane Stahl MD PCP - General Pediatrics 06/01/12 [address] [place] [address] documented as of this encounter
[2022-07-30 13:57] VITALS: RESP 24; O2SAT 100
[2022-07-30] MEDS: PROPOFOL 10 MG/ML INJ 200 MG IV (14:04)
[2022-07-30 14:19] VITALS: BP 142/81; PULSE 54; O2SAT 99
--- NOTE | 2022-07-30 14:19 | CRLHL7_ITS ---
For Patients: As a result of the Cures Act, medical imaging exams and procedure reports are released immediately into your electronic medical record. You may view this report before your referring provider. If you have questions, please contact your health care provider. INDICATION: Postreduction. COMPARISON: Pre reduction films from today at 1327 hours TECHNIQUE: The right shoulder was examined with AP internal and external rotation views for a total of two views at 1444 hours. FINDINGS: During the interval, there has been reduction of the previously seen anterior inferior dislocation of the shoulder. There is now anatomic alignment of the humeral head and glenoid. There is no sign of fracture. The visualized chest is clear. IMPRESSION: Normal right shoulder following reduction of previously seen anterior-inferior dislocation Dictated by Alexi Bush MD @ 07/30/2022 3:52:14 PM (Electronically Signed)
--- NOTE | 2022-07-30 14:28 | W.ED.CHARTNO ---
ED Chart Note Chart Note Details Date: 07/30/22 Details: I was present to provide anesthesia for conscious sedation for Dr. Hannah. She performed a shoulder dislocation/reduction. Please see her note. 200 mg IV propofol fall was ultimately given in incremental doses to achieve sedation. Patient was on a senior research project manager, pulse oximetry, capnography, had an IV you with IV fluids running. Supplemental oxygen was given during the procedure. There were no complications with the anesthesia. Patient awoke quickly after the shoulder was reduced. Respiratory therapy was also in attendance through the procedure.
--- NOTE | 2022-07-30 14:30 | RESP.RT ---
Conscious sedate on patient with Right Shoulder dislocation; preprocedure patient placed on Nasal Cannula 4 Lpm Oxygen with EtCO2 in line 33-37 torr, SaO2 99-100%, respiratory rate 24/minute. During procedure vital signs stable. Post procedure SaO2 100%, EtCO2 33-38 torr, respiratory rate 22-26/minute, Breathing regular/easy, patient awake, alert, orientated to person, place, time.
== END 2022-07-30 15:30 | disposition home or self-care (01) ==
PROVIDERS: Emergency Provider Family Medicine
DX: S43.004A Unspecified dislocation of right shoulder joint, initial encounter (principal); Y93.63 Activity, rugby
CPT/HCPCS: 23655; 73030; 99156; 99284; 99285; J1170; J2704